=== PATIENT | female | born 1955 | race Hispanic/Latino ===

== ENCOUNTER 2018-07-12 19:47 | Emergency (ER) | payer OTHER ==
--- OUTSIDE RECORDS SUMMARY | 2018-07-12 19:49 | XMS REPORT ---
:1955 Author Organization eClinicalWorks Care Team Providers Name Role Phone Will Ortiz Provider Role Unavailable Allergies, Adverse Reactions, Alerts Substance Reaction Event Type N.K.D.A. 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 Assessment Encounter for screening for other Z11.59 Active viral diseases Assessment Adult BMI 25.0-25.9 kg/sq m Z68.25 Active Assessment Screening mammogram, encounter for Z12.31 Active Assessment Screening for colon cancer Z12.11 Active Medications Medication Code Code Instructions Start End Date Status Dosage System Date Paxil [facility] 76124856834 40 MG Orally Active 1 tablet in Once a day the morning Naproxen ND 36971980767 500 MG Orally Active 1 tablet Twice a day Vimovo [facility] 07339912314 500-20 MG Orally May 23, July 22, Active 1 tablet Twice a day 2018 2018 before meals Results No Known Results Immunizations Vaccine Administration Date Prevnar 13 -Pneumonia Vaccine Jun 13, 2018 Summary Purpose eClinicalWorks Submission
--- OUTSIDE RECORDS SUMMARY | 2018-07-12 19:49 | XMS REPORT ---
:1955 Author Organization eClinicalWorks Care Team Providers Name Role Phone Angel Will Provider Role Unavailable Allergies No Known Allergies Problems Problem Type Condition Code Onset Dates Condition Status Assessment Acute right ankle pain M25.571 Active Medications Medication Code System Code Instructions Start End Date Status Dosage Date Naproxen ND 66050975911 500 MG Orally Active 1 tablet Twice a day Vimovo ND 01403456598 500-20 MG Orally May 23, July 22, Active 1 tablet Twice a day 2018 2018 before meals Results Name Result Date Reference Range Unit Abnormality Flag Ankle Right 3 View Foot Right 3 View Summary Purpose eClinicalWorks Submission
--- OUTSIDE RECORDS SUMMARY | 2018-07-12 19:49 | XMS REPORT ---
:1955 Author Organization eClinicalWorks Care Team Providers Name Role Phone Will Ortiz Provider Role Unavailable Allergies No Known Allergies Problems Problem Type Condition Code Onset Dates Condition Status Assessment Current moderate episode of major F32.1 Active depressive disorder without prior episode Problem Current moderate episode of major F32.1 Active depressive disorder without prior episode Medications Medication Code System Code Instructions Start End Date Status Dosage Date Paxil [facility] 08730578455 40 MG Orally Active 1 tablet in Once a day the morning Results No Known Results Summary Purpose eClinicalWorks Submission
[2018-07-12] MEDS ORDERED: COLCHICINE 0.6 MG TAB ONE (22:47)
[2018-07-12] MEDS ORDERED: KETOROLAC 30 MG/ML INJ ONE (22:48)
--- NOTE | 2018-07-12 23:26 | EDPHYS ---
Physician Documentation [facility] Name: Josie Duarte Age: 63 yrs Sex: Female : 1955 Arrival Date: 07/12/2018 Time: 19:48 Bed 13 Private MD: Will Ortiz ED Physician Dat Smith HPI: 07/12 23:33 This 63 yrs old Female presents to ER via Wheelchair with complaints of Leg snw Pain - ankle, Can't walk. 23:33 The patient presents with decreased range of motion, an injury, pain, swelling, snw tenderness. Historical: - Allergies: 20:19 No Known Allergies; dm5 - Home Meds: 20:19 Paxil 40 mg Oral tab 1 tab once daily [Active]; Centrum oral oral daily [Active]; dm5 Vitamin D Oral [Active]; Vitamin B-6 Oral daily [Active]; - PMHx: 20:19 Depression; dm5 - PSHx: 20:19 None; dm5 ROS: 23:32 Constitutional: Negative for fever, chills, and weight loss, Eyes: Negative for injury, snw pain, redness, and discharge, ENT: Negative for injury, pain, and discharge, Neck: Negative for injury, pain, and swelling, Cardiovascular: Negative for chest pain, palpitations, and edema, Respiratory: Negative for shortness of breath, cough, wheezing, and pleuritic chest pain, Abdomen/GI: Negative for abdominal pain, nausea, vomiting, diarrhea, and constipation, Back: Negative for injury and pain, : Negative for injury, bleeding, discharge, and swelling, Skin: Negative for injury, rash, and discoloration, Neuro: Negative for headache, weakness, numbness, tingling, and seizure, Psych: Negative for depression, anxiety, suicide ideation, homicidal ideation, and hallucinations. 23:32 MS/extremity: Positive for injury or acute deformity, decreased range of motion, pain, swelling, tenderness, of the right ankle. Exam: 23:31 Constitutional: This is a well developed, well nourished patient who is awake, alert, snw and in no acute distress. Head/Face: Normocephalic, atraumatic. Eyes: Pupils equal round and reactive to light, extra-ocular motions intact. Lids and lashes normal. Conjunctiva and sclera are non-icteric and not injected. Cornea within normal limits. Periorbital areas with no swelling, redness, or edema. ENT: Nares patent. No nasal discharge, no septal abnormalities noted. Tympanic membranes are normal and external auditory canals are clear. Oropharynx with no redness, swelling, or masses, exudates, or evidence of obstruction, uvula midline. Mucous membranes moist. Neck: Trachea midline, no thyromegaly or masses palpated, and no cervical lymphadenopathy. Supple, full range of motion without nuchal rigidity, or vertebral point tenderness. No Meningismus. Chest/axilla: Normal chest wall appearance and motion. Nontender with no deformity. No lesions are appreciated. Cardiovascular: Regular rate and rhythm with a normal S1 and S2. No gallops, murmurs, or rubs. Normal PMI, no JVD. No pulse deficits. Respiratory: Lungs have equal breath sounds bilaterally, clear to auscultation and percussion. No rales, rhonchi or wheezes noted. No increased work of breathing, no retractions or nasal flaring. Abdomen/GI: Soft, non-tender, with normal bowel sounds. No distension or tympany. No guarding or rebound. No evidence of tenderness throughout. Back: No spinal tenderness. No costovertebral tenderness. Full range of motion. Skin: Warm, dry with normal turgor. Normal color with no rashes, no lesions, and no evidence of cellulitis. Neuro: Awake and alert, GCS 15, oriented to person, place, time, and situation. Cranial nerves II-XII grossly intact. Motor strength 5/5 in all extremities. Sensory grossly intact. Cerebellar exam normal. Normal gait. Psych: Awake, alert, with orientation to person, place and time. Behavior, mood, and affect are within normal limits. 23:31 Musculoskeletal/extremity: Extremities: grossly normal except: decreased ROM, swelling, tenderness, ROM: limited active range of motion due to pain, Circulation is intact in all extremities. Sensation intact. Compartment Syndrome exam of affected extremity: is normal. Vital Signs: 20:19 BP 135 / 93; Pulse 85; Resp 18; Temp 99.2; Pulse Ox 98% on R/A; Weight 64.41 kg; Height dm5 5 ft. 2 in. (157.48 cm); Pain 10/10; 21:45 BP 156 / 92; Pulse 85; Resp 18; Pulse Ox 98% on R/A; jb4 22:15 BP 159 / 86; Pulse 65; Resp 18; Pulse Ox 100% on R/A; jb4 23:15 BP 148 / 92; Pulse 64; Resp 16; Pulse Ox 99% on R/A; jb4 20:19 Body Mass Index 25.97 (64.41 kg, 157.48 cm) dm5 MDM: 22:25 Patient medically screened. snw 23:32 Data reviewed: vital signs, nurses notes. Data interpreted: Pulse oximetry: on room air snw is 100 %. Interpretation: normal. Counseling: I had a detailed discussion with the patient and/or guardian regarding: the historical points, exam findings, and any diagnostic results supporting the discharge/admit diagnosis, radiology results, the need for outpatient follow up, to return to the emergency department if symptoms worsen or persist or if there are any questions or concerns that arise at home. Special discussion: I have referred the patient to see his PCP for further evaluation of high blood pressure. Based on the history and exam findings, there is no indication for further emergent testing or inpatient evaluation. I discussed with the patient/guardian the need to see the orthopedic surgeon for further evaluation of the symptoms. I discussed with the patient/guardian the need to see the primary care provider for further evaluation of the symptoms. 07/12 20:20 Order name: Ankle Right 3 View XRAY 5 07/12 22:28 Order name: Aircast Ankle Splint: boot; Complete Time: 23:22 snw Administered Medications: 22:40 Drug: TORadol 60 mg Route: IM; Site: right gluteus; jb4 23:15 Follow up: Response: No adverse reaction; Pain is decreased jb4 22:40 Drug: Colcrys 1.2 mg Route: PO; jb4 23:15 Follow up: Response: No adverse reaction jb4 Disposition: 07/13 06:27 Co-signature as Attending Physician, Dat Smith MD Available for consultation at ps1 all times . Disposition: 07/12/18 23:25 Discharged to Home. Impression: Pain in ankle and joints of foot. - Condition is Stable. - Discharge Instructions: Ankle Sprain, Cast or Splint Care, Adult, Hypertension, RICE for Routine Care of Injuries, Ankle Pain, Cryotherapy. - Prescriptions for Diclofenac Sodium 75 mg Oral Tablet Sustained Release - take 1 tablet by ORAL route 2 times per day; 30 tablet. - Medication Reconciliation Form, Thank You Letter, Antibiotic Education, Prescription Opioid Use form. - Follow up: Will Ortiz DO; When: 2 - 3 days; Reason: Recheck today's complaints, Continuance of care, Re-evaluation by your physician. Follow up: Emergency Department; When: As needed; Reason: Worsening of condition. Signatures: Dispatcher [employer] Laura August, RN RN dm5 Chrissy Gavin, SALES FLOOR TEAM MEMBER-C SALES FLOOR TEAM MEMBER-Csnw Jan Morris RN RN jb4 Dat Smith MD MD ps1 Corrections: (The following items were deleted from the chart) 07/12 23:52 23:25 07/12/2018 23:25 Discharged to Home. Impression: Pain in ankle and joints of jb4 foot. Condition is Stable. Forms are Medication Reconciliation Form, Thank You Letter, Antibiotic Education, Prescription Opioid Use. Follow up: Will Ortiz; When: 2 - 3 days; Reason: Recheck today's complaints, Continuance of care, Re-evaluation by your physician. Follow up: Emergency Department; When: As needed; Reason: Worsening of condition. snw
--- NOTE | 2018-07-12 23:26 | ER ---
Nurse's Notes [facility] Name: Josie Duarte Age: 63 yrs Sex: Female : 1955 Arrival Date: 07/12/2018 Time: 19:48 Bed 13 Private MD: Will Ortiz Diagnosis: Pain in ankle and joints of foot Presentation: 07/12 20:16 Presenting complaint: Patient states: pain started months ago, didn't' want to come in [address] Ortiz and sent to get x-ray, diagnosed with osteodegenerative arthritis. Due for more test July 30. Presenting complaint: Patient states: has gotten worse over the last 2 days. Transition of care: patient was not received from another setting of care. Onset of symptoms was July 09, 2018. Risk Assessment: Do you want to hurt yourself or someone else? Patient reports no desire to harm self or others. Initial Sepsis Screen: Does the patient meet any 2 criteria? No. Patient's initial sepsis screen is negative. Does the patient have a suspected source of infection? No. Patient's initial sepsis screen is negative. Care prior to arrival: None. 20:16 Method Of Arrival: Wheelchair dm5 20:16 Acuity: CARMEN 4 dm5 Historical: - Allergies: 20:19 No Known Allergies; dm5 - Home Meds: 20:19 Paxil 40 mg Oral tab 1 tab once daily [Active]; Centrum oral oral daily [Active]; dm5 Vitamin D Oral [Active]; Vitamin B-6 Oral daily [Active]; - PMHx: 20:19 Depression; dm5 - PSHx: 20:19 None; dm5 Screenin:40 Abuse screen: Denies threats or abuse. Nutritional screening: No deficits noted. jb4 Tuberculosis screening: No symptoms or risk factors identified. Fall Risk None identified. Assessment: 21:40 General: Appears in no apparent distress. uncomfortable, Behavior is calm, cooperative, jb4 appropriate for age. Pain: Complains of pain in right ankle Pain radiates to right foot Pain currently is 10 out of 10 on a pain scale. Neuro: Level of Consciousness is awake, alert, obeys commands, Oriented to person, place, time, situation. Cardiovascular: Patient's skin is warm and dry. Respiratory: Airway is patent Respiratory effort is even, unlabored, Respiratory pattern is regular, symmetrical. GI: No signs and/or symptoms were reported involving the gastrointestinal system. : No signs and/or symptoms were reported regarding the genitourinary system. EENT: No signs and/or symptoms were reported regarding the EENT system. Derm: Skin is intact, Skin is pink, warm \T\ dry. Musculoskeletal: Circulation, motion, and sensation intact. Range of motion: intact in right ankle. 22:31 Reassessment: Patient appears in no apparent distress at this time. No changes from jb4 previously documented assessment. Patient and/or family updated on plan of care and expected duration. Pain level reassessed. Patient is alert, oriented x 3, equal unlabored respirations, skin warm/dry/pink. Vital Signs: 20:19 BP 135 / 93; Pulse 85; Resp 18; Temp 99.2; Pulse Ox 98% on R/A; Weight 64.41 kg; Height dm5 5 ft. 2 in. (157.48 cm); Pain 10/10; 21:45 BP 156 / 92; Pulse 85; Resp 18; Pulse Ox 98% on R/A; jb4 22:15 BP 159 / 86; Pulse 65; Resp 18; Pulse Ox 100% on R/A; jb4 23:15 BP 148 / 92; Pulse 64; Resp 16; Pulse Ox 99% on R/A; jb4 20:19 Body Mass Index 25.97 (64.41 kg, 157.48 cm) dm5 ED Course: 19:48 Patient arrived in ED. am2 19:49 Will Ortiz DO is Private Physician. am2 20:18 Triage completed. dm5 20:19 Arm band placed on right wrist. Patient placed in waiting room. dm5 20:25 Chrissy Gavin [facility]NP-C [facility]. snw 20:25 Dat Smith MD is Attending Physician. snw 21:28 Jan Morris, FOX is Primary Nurse. jb4 21:35 Ankle Right 3 View XRAY In Process Unspecified. EDMS 21:40 Patient has correct armband on for positive identification. Bed in low position. Call jb4 light in reach. Side rails up X 1. Pulse ox on. NIBP on. 23:24 Will Ortiz DO is Referral Physician. snw 23:45 No provider procedures requiring assistance completed. Patient did not have IV access jb4 during this emergency room visit. Administered Medications: 22:40 Drug: TORadol 60 mg Route: IM; Site: right gluteus; jb4 23:15 Follow up: Response: No adverse reaction; Pain is decreased jb4 22:40 Drug: Colcrys 1.2 mg Route: PO; jb4 23:15 Follow up: Response: No adverse reaction jb4 Outcome: 23:25 Discharge ordered by MD. snw 23:45 Discharged to home ambulatory. jb4 23:45 Condition: stable 23:45 Discharge instructions given to patient, Instructed on discharge instructions, follow up and referral plans. medication usage, Demonstrated understanding of instructions, follow-up care, medications, Prescriptions given X 1. 23:52 Patient left the ED. jb4 Signatures: Dispatcher [employer] Laura August, RN RN dm5 Chrissy Gavin, CHOCOLATE REFINING ROLLER-C CHOCOLATE REFINING ROLLER-Csnw Jan Morris RN RN jb4 Agnes Man
[2018-07-12 23:56] VITALS: TEMP 99.2
[2018-07-12 23:59] VITALS: BP 159/86; O2SAT 100
--- NOTE | 2018-07-13 08:35 | RAD REPORT ---
EXAM DESCRIPTION: RAD - Ankle Right 3 View - 07/12/2018 9:34 pm CLINICAL HISTORY: Right ankle pain FINDINGS: No fracture or dislocation is seen. Mild osteoarthritis is present. An ankle joint effusion is suspected. A. A spur extends off the poste rior calcaneus. Soft tissue swelling is present. The bones appear osteoporotic
== END 2018-07-12 23:52 | disposition home or self-care (01) ==
LOC: ER 19:47
DX: M25.571 Pain in right ankle and joints of right foot (principal)
CPT/HCPCS: 96372; 99284

== ENCOUNTER 2020-11-12 08:37 | Emergency (ER) | payer OTHER ==
--- OUTSIDE RECORDS SUMMARY | 2020-11-12 08:41 | XMS REPORT | Continuity of Care Document ---
:1955 Author Organization [facility] t Address [address] [place] [address] Care Team Providers Name Role Phone Unavailable Unavailable Unavailable Problems This patient has no known problems. Allergies, Adverse Reactions, Alerts This patient has no known allergies or adverse reactions. Medications Ordered Filled Start Stop Current Ordering Indication Dosage Frequency Signature Comments Components Source Medication Medication Date Date Medication? Clinician (SIG) Name Name Alprazolam Alprazolam Yes Will [address] [facility]15 [facility] BusPIRone BusPIRone 0 Yes Will [address] [facility] HCl HCl 3-10 [facility] Neomycin-Po Neomycin-Po 2018-04 Yes Will [address] [facility] lymyxin-HC lymyxin-HC 2-24 Ortiz into [facility] - 00:[facility]: affected [facility] Paroxetine Paroxetine Yes Will [address] [facility] HCl HCl [facility] Naproxen Naproxen Yes Will [address] [facility] Amlodipine Amlodipine Yes Will [address] [facility] Besylate Besylate [facility] Paxil Paxil Yes Will [address] [facility] Alendronate Alendronate Yes Will [address] [facility] Sodium Sodium [facility] Immunizations Ordered Filled Immunization Date Status Comments [facility] Immunization Name Name Pneumovax (PPSV23) Pneumovax (PPSV23) 2020-01-[address] [facility]00 [facility] Shingrix Shingrix 2020-01-[address] [facility]:00 [facility] FluAD FluAD 2019-02-[address] [facility]00 [facility] Prevnar 13 Prevnar 13 2018-06-[address] [facility] - -Pneumonia Vaccine -Pneumonia Vaccine 00:00:00 [facility] Procedures This patient has no known procedures. Encounters Start End Encounter Admission Attending Care Care Encounter Source Date/Time Date/Time Type Type Clinicians Facility Department ID 2020-11-03 2020-11-[address] [id number] 2020-10-05 2020-10-[facility] [id number] 2020-10-04 2020-10-[facility] [id number] 2020-08-22 2020-08-[facility] [id number] [facility] 2020-07-28 2020-07-28 [facility] [id number] 2020-07-28 2020-07-[facility] [id number] [facility] 2020-07-21 2020[facility]07-[facility] [id number] [facility] 2020-02-04 2020-02-04 [facility] [id number] 2020-01-07 2020-01-07 [facility] [id number] [facility] 08:[facility]:00 08:00:00 t [place] [employer] s - Document [facility] l Medicine Outpati ent Clinics 2019-09-11 2019-09-11 [facility] [id number] 09[facility]15:00 09:15:00 t [place] [employer] - Document [employer] [facility] Medicine Outpati ent Clinics 2019-08-19 2019-08-19 [facility] [id number] 08:50:00 08:50:00 t [place] [employer] [facility] Medicine Outpati ent Clinics 2019-07-16 2019-07-16 [facility] [id number] 08:08:00 08:08:00 t [place] [employer] [facility] Medicine Outpati ent Clinics 2019-07-06 2019-07-06 [facility] [id number] 16:27:00 16:27:00 t [place] [employer] [facility] Medicine Outpati ent Clinics 2019-07-06 2019-07-06 [facility] [id number] [facility] 08:01:00 08:01:00 t [employer] [facility] Medicine Outpati ent Clinics 2019-07-03 2019-07-03 [facility] [id number] 10:00:00 10:00:00 t [place] [employer] [facility] Medicine Outpati ent Clinics 2019-07-03 2019-07-03 [facility] [id number] 09:45:00 09:45:00 t [place] [employer] [facility] Medicine Outpati ent Clinics 2019-05-04 2019-05-04 [facility] [id number] 09:15:00 09:15:00 t [place] [employer] [facility] Medicine Outpati ent Clinics 2019-04-21 2019-04-21 [facility] [id number] 08:45:00 08:45:[address] [facility] s - Drive [facility] Medicine l Medicine Outpati ent Clinics 2019-03-04 2019-03-04 [facility] [id number] 13:26:00 13:26:[address] Luke [facility] - Drive [facility] Medicine l Medicine Outpati ent Clinics 2019-03-03 2019-03-03 [facility] [id number] 10[facility]30:00 10:30:[address] Luke s - Drive [facility] Medicine l Medicine Outpati ent Clinics 2019-02-03 2019-02-03 [facility] [id number] 13:30:00 13:30:00 t [place] [employer] Luke [facility] - Drive [facility] Medicine l Medicine Outpati ent Clinics 2019-02-03 2019-02-03 [facility] [id number] 09:30:00 09:30:[address] Luke s - Drive [facility] Medicine Medicine Outpati ent Clinics 2018-08-27 2018-08-27 [facility] [id number] 11:43:00 11:43:00 t [place] Document [employer] Luke s - Drive [facility] Medicine l Medicine Outpati ent Clinics 2018-08-19 2018-08-19 [facility] [id number] 13:47:00 13:47:00 t [place] Document [employer] Luke s - Drive [facility] Medicine l Medicine Outpati ent Clinics 2018-07-17 2018-07-17 [facility] [id number] 08:00:00 08:00:[address] Luke s - Drive [facility] Medicine l Medicine Outpati ent Clinics 2018-06-13 2018-06-13 [facility] [id number] 15:17:00 15:17:[address] Luke s - Drive [facility] Medicine l Medicine Outpati ent Clinics 2018-06-13 2018-06-13 [facility] [id number] 10:45:00 10:45:[address] Luke s - Drive [facility] Medicine l Medicine Outpati ent Clinics 2018-05-23 2018-05-23 Outpatient Malathi Hdez [id number] [facility] 09:15:00 09:15:00 Fonemesh [facility] Medicine [facility] Results This patient has no known results.
--- NOTE | 2020-11-12 09:21 | RAD REPORT ---
EXAM DESCRIPTION: RAD - Wrist Right 3 View - 11/12/2020 9:07 am CLINICAL HISTORY: PAIN COMPARISON: No comparisons FINDINGS: No wrist fracture identified. No malalignment. No radiopaque foreign bodies. No focal dege nerative changes. IMPRESSION: No right wrist fracture or malalignment.
--- NOTE | 2020-11-12 09:27 | ER ---
Nurse's Notes [facility] Name: Josie Duarte Age: 65 yrs Sex: Female : 1955 Arrival Date: 11/12/2020 Time: 08:39 Bed 23 Private MD: Will Ortiz Diagnosis: Sprain of unspecified part of right wrist and hand Presentation: 11/12 08:46 Chief complaint: Patient states: R hand and wrist pain s/p fall on wet surface 2 days ll1 ago. Coronavirus screen: Client denies travel out of the [place] in the last 14 days. At this time, the client does not indicate any symptoms associated with coronavirus-19. Ebola Screen: Patient denies travel to an Ebola-affected area in the 21 days before illness onset. Initial Sepsis Screen: Does the patient meet any 2 criteria? No. Patient's initial sepsis screen is negative. Does the patient have a suspected source of infection? Yes: Bone or joint infection. Risk Assessment: Do you want to hurt yourself or someone else? Patient reports no desire to harm self or others. Onset of symptoms was November 10, 2020. 08:46 Method Of Arrival: Ambulatory ll1 08:46 Acuity: CARMEN 4 ll1 09:10 Care prior to arrival: None. Triage Assessment: 08:49 General: Appears uncomfortable, Behavior is calm, cooperative, appropriate for age. ll1 Pain: Complains of pain in R wrist/hand Quality of pain is described as aching. Neuro: No deficits noted. Cardiovascular: No deficits noted. Respiratory: No deficits noted. Musculoskeletal: Circulation, motion, and sensation intact. Capillary refill < 3 seconds, Swelling present in R hand/wrist Tenderness present in R hand/wrist Reports pain in R hand. Injury Description: Bruise. Historical: - Allergies: 08:46 No Known Allergies; ll1 - PMHx: 08:46 Depression; ll1 - PSHx: 08:46 None; ll1 - Immunization history:: Client reports receiving the 2nd dose of the Covid vaccine, Flu vaccine is up to date. - Social history:: Smoking status: Patient denies any tobacco usage or history of. - Family history:: not pertinent. - Hospitalizations: : No recent hospitalization is reported. Screenin:11 Abuse screen: Denies threats or abuse. Denies injuries from another. Nutritional ss screening: No deficits noted. Tuberculosis screening: Never had TB. Fall Risk Fall in past 12 months (25 points). No secondary diagnosis (0 pts). No IV (0 pts). Ambulatory Aid- None/Bed Rest/Nurse Assist (0 pts). Gait- Normal/Bed Rest/Wheelchair (0 pts) Mental Status- Oriented to own ability (0 pts). Assessment: 09:11 General: Appears in no apparent distress. comfortable, Behavior is calm, cooperative, ss Denies fever, feeling ill, fatigue, chills. Pain: Complains of pain in right wrist Pain currently is 10 out of 10 on a pain scale. Quality of pain is described as aching, tender, Pain began 1 day ago. Is continuous. Neuro: Level of Consciousness is awake, alert, obeys commands, Oriented to person, place, time, situation. Cardiovascular: Pulses are palpable in right radial artery and left radial artery. Respiratory: Airway is patent Respiratory effort is even, unlabored, Respiratory pattern is regular, symmetrical. GI: No signs and/or symptoms were reported involving the gastrointestinal system. EENT: Oral mucosa is moist. Derm: Skin is intact, is healthy with good turgor, Skin is dry, Skin is pink, warm \T\ dry. normal. Musculoskeletal: Swelling present in right wrist. 09:35 Reassessment: No changes from previously documented assessment. Patient and/or family ss updated on plan of care and expected duration. Pain level reassessed. Patient is alert, oriented x 3, equal unlabored respirations, skin warm/dry/pink. Vital Signs: 08:46 BP 173 / 98; Pulse 63; Resp 16; Temp 98.0; Pulse Ox 97% ; Weight 65.77 kg; Height 5 ft. ll1 2 in. (157.48 cm); Pain 10/10; 09:35 BP 161 / 101; Pulse 56; Resp 16; Pulse Ox 97% ; ss 08:46 Body Mass Index 26.52 (65.77 kg, 157.48 cm) ll1 ED Course: 08:39 Patient arrived in ED. mr 08:40 Will Ortiz, DO is Private Physician. mr 08:45 Arm band placed on. ll1 08:48 Triage completed. 1 09:04 Evan Azar MD is Attending Physician. rn 09:07 Wrist Right 3 View XRAY In Process Unspecified. EDMS 09:10 Sandy Moss, RN is Primary Nurse. ss 09:11 Patient has correct armband on for positive identification. Bed in low position. Call ss light in reach. 09:35 No provider procedures requiring assistance completed. Patient did not have IV access ss during this emergency room visit. Administered Medications: No medications were administered Outcome: :26 Discharge ordered by . rn 09:35 Discharged to home ambulatory. ss 09:35 Condition: stable 09:35 Discharge instructions given to patient, Instructed on discharge instructions, follow up and referral plans. Demonstrated understanding of instructions, follow-up care. 09:35 Patient left the ED. ss Signatures: Dispatcher [employer] [facility] BorregoCarly Roman, MD MD rn Smirch, Shelby, RN RN Marsha Gonsalez RN RN ll1
--- NOTE | 2020-11-12 09:27 | EDPHYS ---
Physician Documentation [facility] Name: Josie Duarte Age: 65 yrs Sex: Female : 1955 Arrival Date: 11/12/2020 Time: 08:39 Bed 23 Private MD: Will Ortiz ED Physician Evan Azar HPI: 11/12 09:21 This 65 yrs old Female presents to ER via Ambulatory with complaints of Fall rn Injury, Wrist Injury. 09:21 Details of fall: The patient fell from an upright position, while walking. Onset: The rn symptoms/episode began/occurred 2 day(s) ago. Associated injuries: The patient sustained right wrist. Severity of symptoms: At their worst the symptoms were moderate, in the emergency department the symptoms are unchanged. The patient has not experienced similar symptoms in the past. The patient has not recently seen a physician. Reports fall outside, slipped, landed on buttocks and thinks caught her right wrist on ground. Didn't hurt initially, now having increased pain since last night. No other pain or injury. Reports pain when wiping and buttoning pants. . Historical: - Allergies: 08:46 No Known Allergies; ll1 - PMHx: 08:46 Depression; ll1 - PSHx: 08:46 None; ll1 - Immunization history:: Client reports receiving the 2nd dose of the Covid vaccine, Flu vaccine is up to date. - Social history:: Smoking status: Patient denies any tobacco usage or history of. - Family history:: not pertinent. - Hospitalizations: : No recent hospitalization is reported. ROS: 09:21 Constitutional: Negative for fever, chills, and weight loss, Eyes: Negative for injury, rn pain, redness, and discharge, Neck: Negative for injury, pain, and swelling, Cardiovascular: Negative for chest pain, palpitations, and edema, Respiratory: Negative for shortness of breath, cough, wheezing, and pleuritic chest pain, Abdomen/GI: Negative for abdominal pain, nausea, vomiting, diarrhea, and constipation, Back: Negative for injury and pain, MS/Extremity: + right wrist injury and pain Skin: Negative for injury, rash, and discoloration, Neuro: Negative for headache, weakness, numbness, tingling, and seizure. Exam: 09:21 Constitutional: This is a well developed, well nourished patient who is awake, alert, rn and in no acute distress. Head/Face: Normocephalic, atraumatic. Cardiovascular: Regular rate and rhythm. No pulse deficits. MS/ Extremity: Pulses equal, no cyanosis. Neurovascular intact. + mild tenderness mid right wrist with swelling that extends to right hand, no focal tenderness in hand. Vital Signs: 08:46 BP 173 / 98; Pulse 63; Resp 16; Temp 98.0; Pulse Ox 97% ; Weight 65.77 kg; Height 5 ft. ll1 2 in. (157.48 cm); Pain 10/10; 09:35 BP 161 / 101; Pulse 56; Resp 16; Pulse Ox 97% ; ss 08:46 Body Mass Index 26.52 (65.77 kg, 157.48 cm) ll1 MDM: 09:04 Patient medically screened. rn 09:24 Differential diagnosis: contusion, fracture, sprain, strain. Data reviewed: vital rn signs, nurses notes, lab test result(s). 09:25 Test interpretation: by ED physician or midlevel provider: plain radiologic studies, rn Xray right wrist negative for acute fracture/dislocation. Counseling: I had a detailed discussion with the patient and/or guardian regarding: the historical points, exam findings, and any diagnostic results supporting the discharge/admit diagnosis, radiology results, the need for outpatient follow up, to return to the emergency department if symptoms worsen or persist or if there are any questions or concerns that arise at home. Special discussion: I discussed with the patient/guardian in detail that at this point there is no indication for admission to the hospital. It is understood, however, that if the symptoms persist or worsen the patient needs to return immediately for re-evaluation. 11/12 08:52 Order name: Wrist Right 3 View XRAY; Complete Time: 09:24 pm1 Administered Medications: No medications were administered Disposition Summary: 11/12/20 09:26 Discharge Ordered Location: Home rn Problem: new rn Symptoms: are unchanged rn Condition: Stable rn Diagnosis - Sprain of unspecified part of right wrist and hand rn Followup: rn - With: Private Physician - When: As needed - Reason: Recheck today's complaints, Re-evaluation by your physician Discharge Instructions: - Discharge Summary Sheet rn - Wrist Pain, Adult rn - Wrist Sprain, Adult rn Forms: - Medication Reconciliation Form rn - Thank You Letter rn - Antibiotic rn military - Prescription Opioid Use rn Signatures: Dispatcher [employer] Evan Guerra MD MD rn Lewis, Lynsay, RN RN ll1
[2020-11-12 09:40] VITALS: TEMP 98; O2SAT 97
[2020-11-12 09:41] VITALS: BP 161/101
== END 2020-11-12 09:35 | disposition home or self-care (01) ==
LOC: ER 08:37
DX: S63.91XA Sprain of unspecified part of right wrist and hand, initial encounter (principal); W01.0XXA Fall on same level from slipping, tripping and stumbling without subsequent striking against object, initial encounter
CPT/HCPCS: 99283

== ENCOUNTER 2022-02-08 10:04 | Emergency (ER) | payer OTHER ==
--- OUTSIDE RECORDS SUMMARY | 2022-02-08 10:11 | XMS REPORT | Continuity of Care Document ---
:1955 Author Organization [facility] t Address [address] [place] [address] Dr. Gutierrez [address] [place] [id number] Care Team Providers Name Role Phone Will Ortiz Attending Clinician Unavailable [facility] Attending Clinician Unavailable [facility] Admitting Clinician Unavailable Payers Payer Name Policy Type Policy Number Effective Date Expiration Date Fe [place] [employer] MEDICARE 53 [id number] 2020 [facility] 00:00[facility]00 [facility] [id number] 1959 00:00:00 Problems Condition Condition Condition Status Onset Resolution Last Treating Co mments Source Name Details Category Date Date Treatment Clinician Date [id number] Mixed Problem Common hyperlipid [facility] emia [facility] [id number] Generalize Problem Com mon d anxiety [facility] disorder [facility] [id number] Prolonged Problem Com mon QT [facility] interval [facility] [id number] Sinus Problem Common tachycardi [facility] a [facility] Localized, 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 - [facility] the ankle unspecifie Rafia es and/or d [facility] itis type [id number] HTN, goal Problem Comm on below [facility] 150/90 [facility] [id number] 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[facility] prior episode [id number] Carotid Problem Commo n artery [facility] disease, - [facility] unspecifie d [facility] laterality [facility] [place] unspecifie d type [id number] Panic Problem Common attack [facility] [id number] Flu Problem Common vaccine [facility] need [facility] [id number] 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 Social History Social Habit Start Date Stop Date Quantity Comments Source History of Tobacco Use Co mmon [facility] Sex Assigned At Com mon [facility] Smoking Status Start Date Stop Date Source Never Smoker [facility] Medications Ordered Filled Start Stop Current Ordering Indication Dosage Frequency Signature Comments Components Source Medication Medication Date Date Medication? Clinician (SIG) Name Name ALPRAZolam ALPRAZolam No 1{table ALPRAZolam 0.5 MG 0.5 MG 8-30 t} 0.5 MG 00:00: 00 ALPRAZolam ALPRAZolam No 1{table ALPRAZolam 0.5 MG 0.5 MG 8-30 t} 0.5 MG 00:00: 00 ALPRAZolam ALPRAZolam No 1{table ALPRAZolam 0.5 MG 0.5 MG 8-30 t} 0.5 MG 00:00: 00 ALPRAZolam ALPRAZolam No 1{table ALPRAZolam 0.5 MG 0.5 MG 8-30 t} 0.5 MG 00:00: 00 PARoxetine PARoxetine No QD PARoxetine HCl 20 MG HCl 20 MG 2-24 HCl 20 MG 00:00: 00 PARoxetine PARoxetine No QD PARoxetine HCl 20 MG HCl 20 MG 2-24 HCl 20 MG 00:00: 00 amLODIPine amLODIPine No 1{table QD amLODIPine Besylate Besylate 1-13 t} Besylate 2.5 MG 2.5 MG 00:00: 2.5 MG 00 amLODIPine amLODIPine No 1{table QD amLODIPine Besylate Besylate 1-13 t} Besylate 2.5 MG 2.5 MG 00:00: 2.5 MG 00 Alprazolam Alprazolam 2020-0 Yes Will 1 tablet Common 5-15 [facility] 00:00: - [facility] 00 [facility] BusPIRone BusPIRone 2020-0 Yes Will 1 tablet Common HCl HCl 3-10 [facility] 00:00: - [facility] 00 [facility] busPIRone busPIRone 2020-0 No 1{table TID busPIRone HCl 5 MG HCl 5 MG 3-10 t} HCl 5 MG 00:00: 00 busPIRone busPIRone 2020-0 No 1{table TID busPIRone HCl 5 MG HCl 5 MG 3-10 t} HCl 5 MG 00:00: 00 busPIRone busPIRone 2019-0 No 1{table TID busPIRone HCl 5 MG HCl 5 MG 3-10 t} HCl 5 MG 00:00: 00 busPIRone busPIRone 2019-0 No 1{table TID busPIRone HCl 5 MG HCl 5 MG 3-10 t} HCl 5 MG 00:00: 00 busPIRone busPIRone 2020-0 No 1{table TID busPIRone HCl 5 MG HCl 5 MG 3-10 t} HCl 5 MG 00:00: 00 busPIRone busPIRone 2020-0 No 1{table TID busPIRone HCl 5 MG HCl 5 MG 3-10 t} HCl 5 MG 00:00: 00 busPIRone busPIRone 2020-0 No 1{table TID busPIRone HCl 5 MG HCl 5 MG 3-10 t} HCl 5 MG 00:00: 00 busPIRone busPIRone 2020-0 No 1{table TID busPIRone HCl 5 MG HCl 5 MG 3-10 t} HCl 5 MG 00:00: 00 busPIRone busPIRone 2020-0 No 1{table TID busPIRone HCl 5 MG HCl 5 MG 3-10 t} HCl 5 MG 00:00: 00 busPIRone busPIRone 2020-0 No 1{table TID busPIRone HCl 5 MG HCl 5 MG 3-10 t} HCl 5 MG 00:00: 00 Kenalog Kenalog 2019-0 No 40mg Common (Triamcinol (Triamcinol 1-06 S pirit one) one) 00:00: - [facility] 00 [facility] Kenalog Kenalog 2020-0 No 40mg Common (Triamcinol (Triamcinol 1-06 S pirit one) one) 00:00: - [facility] 00 [facility] Kenalog Kenalog 2020-0 No 40mg Common (Triamcinol (Triamcinol 1-06 S pirit one) one) 00:00: - [facility] 00 [facility] Kenalog Kenalog 2020-0 No 40mg Common (Triamcinol (Triamcinol 1-06 S pirit one) one) 00:00: - [facility] 00 [facility] Kenalog Kenalog 2020-0 No 40mg Common (Triamcinol (Triamcinol 1-06 S pirit one) one) 00:00: - [facility] 00 [facility] Kenalog Kenalog 2020-0 No 40mg Common (Triamcinol (Triamcinol 1-06 S pirit one) one) 00:00: - [facility] 00 [facility] Kenalog Kenalog 2020-0 No 40mg Common (Triamcinol (Triamcinol 1-06 S pirit one) one) 00:00: - [facility] 00 [facility] Kenalog Kenalog 2020-0 No 40mg Common (Triamcinol (Triamcinol 1-06 S pirit one) one) 00:00: - [facility] 00 [facility] Bernardoalog Kenalog 2020-0 No 40mg Common (Triamcinol (Triamcinol 1-06 S pirit one) one) 00:00: - [facility] 00 [facility] Neomycin-Po Neomycin-Po 2018- Yes Will 4 drops Common lymyxin-HC lymyxin-HC 2-24 Ortiz into Sp alirio 00:00: affected - [facility] 00 ear [facility] Neomycin-Po Neomycin-Po 2018- No 4{drops TID Neomycin-P lymyxin-HC lymyxin-HC 2-24 _into_a olymyxin-H 3.5-10583-9 3.5-58750-3 00:00: ffected C 00 _ear} 3.5-94942- 1 Neomycin-Po Neomycin-Po 2018-04 No 4{drops TID Neomycin-P lymyxin-HC lymyxin-HC 2-24 _into_a olymyxin-H 3.5-73452-4 3.5-55520-4 00:00: ffected C 00 _ear} 3.5-36949- 1 Neomycin-Po Neomycin-Po 2018-04 No 4{drops TID Neomycin-P lymyxin-HC lymyxin-HC 2-24 _into_a olymyxin-H 3.5-80737-0 3.5-75739-5 00:00: ffected C 00 _ear} 3.5-30447- 1 Neomycin-Po Neomycin-Po 2018-04 No 4{drops TID Neomycin-P lymyxin-HC lymyxin-HC 2-24 _into_a olymyxin-H 3.5-29366-5 3.5-72958-6 00:00: ffected C 00 _ear} 3.5-51921- 1 Neomycin-Po Neomycin-Po 2018-04 No 4{drops TID Neomycin-P lymyxin-HC lymyxin-HC 2-24 _into_a olymyxin-H 3.5-63749-9 3.5-25016-7 00:00: ffected C 00 _ear} 3.578553- 1 Neomycin-Po Neomycin-Po 2018-04 No 4{drops TID Neomycin-P lymyxin-HC lymyxin-HC 2-24 _into_a olymyxin-H 3.5-04503-0 3.5-02854-6 00:00: ffected C 00 _ear} 3.5-25785- 1 Neomycin-Po Neomycin-Po 2018-04 No 4{drops TID Neomycin-P lymyxin-HC lymyxin-HC 2-24 _into_a olymyxin-H 3.5-48443-8 3.5-40957-7 00:00: ffected C 00 _ear} 3.5-24292- 1 Neomycin-Po Neomycin-Po 2018-04 No 4{drops TID Neomycin-P lymyxin-HC lymyxin-HC 2-24 _into_a olymyxin-H 3.5-68479-3 3.5-87010-2 00:00: ffected C 00 _ear} 3.5-47972- 1 Neomycin-Po Neomycin-Po 2018-04 No 4{drops TID Neomycin-P lymyxin-HC lymyxin-HC 2-24 _into_a olymyxin-H 3.564895-3 3.549902-4 00:00: ffected C 00 _ear} 3.5- 1 Neomycin-Po Neomycin-Po 2018- No 4{drops TID Neomycin-P lymyxin-HC lymyxin-HC 2-24 _into_a olymyxin-H 3.526524-6 3.587989-8 00:00: ffected C 00 _ear} 3[facility]5- [facility] (Triamcinol (Triamcinol 3-21 S pirit one) one) 00:00: - [facility] 00 [facility] Gela Kenalog 2019-0 No 40mg Common (Triamcinol (Triamcinol 3-21 S pirit one) one) 00:00: - [facility] [place]-0 No 40mg [facility] (Triamcinol (Triamcinol 3-21 S pirit one) one) 00:00: - [facility] Gela Kenalog 2019-0 No 40mg Common (Triamcinol (Triamcinol 3-21 S pirit one) one) 00:00: - [facility] Kenalog 2019-0 No 40mg Common (Triamcinol (Triamcinol 3-21 S pirit one) one) 00:00: - [facility] Kenchiki Kenalog 2019-0 No 40mg Common (Triamcinol (Triamcinol 3-21 S pirit one) one) 00:00: - [facility] 00 [facility] Gela Kenalog 2019-0 No 40mg Common (Triamcinol (Triamcinol 3-21 S pirit one) one) 00:00: - [facility] Ken[facility]-0 No 40mg Common (Triamcinol (Triamcinol 3-21 S pirit one) one) 00:00: - [facility] Kenchiki Kenalog 2019-0 No 40mg Common (Triamcinol (Triamcinol 3-21 S pirit one) one) 00:00: - [facility] 00 [facility] Paroxetine Paroxetine Yes Will 1 tablet Common HCl HCl [facility]iz in the [facility] Naproxen Naproxen Yes Will 1 tablet C ommon Ortiz [facility] Amlodipine Amlodipine Yes Will 1 tablet Common Besylate Besylate Ortiz [facility] Paxil Paxil Yes Will 1 tablet Common Ortiz in the [facility] Alendronate Alendronate Yes Will 1 tablet Common Sodium Sodium Ortiz [facility] Alendronate Alendronate No Alendronat Sodium 35 Sodium 35 e Sodium MG MG 35 MG ALPRAZolam ALPRAZolam No 1{table ALPRAZolam 0.5 MG 0.5 MG t} 0.5 MG PARoxetine PARoxetine No 1{table QD PARoxetine HCl 40 MG HCl 40 MG t_in_th HCl 40 MG e_morni ng} B Complex B Complex No B Complex Paxil 40 MG Paxil 40 MG No 1{table QD Paxil 40 t_in_th MG e_morni ng} Naproxen Naproxen No 1{table BID Naproxen 500 MG 500 MG t} 500 MG Paxil 40 MG Paxil 40 MG No Paxil 40 MG Vitamin D3 Vitamin D3 No Vitamin D3 125 MCG 125 MCG 125 MCG (5000 UT) (5000 UT) (5000 UT) Alendronate Alendronate No 1{table Alendronat Sodium 35 Sodium 35 t} e Sodium MG MG 35 MG Alendronate Alendronate No Alendronat Sodium 35 Sodium 35 e Sodium MG MG 35 MG ALPRAZolam ALPRAZolam No 1{table ALPRAZolam 0.5 MG 0.5 MG t} 0.5 MG PARoxetine PARoxetine No 1{table QD PARoxetine HCl 40 MG HCl 40 MG t_in_th HCl 40 MG e_morni ng} B Complex B Complex No B Complex Paxil 40 MG Paxil 40 MG No 1{table QD Paxil 40 t_in_th MG e_morni ng} Naproxen Naproxen No 1{table BID Naproxen 500 MG 500 MG t} 500 MG Paxil 40 MG Paxil 40 MG No Paxil 40 MG Vitamin D3 Vitamin D3 No Vitamin D3 125 MCG 125 MCG 125 MCG (5000 UT) (5000 UT) (5000 UT) Alendronate Alendronate No 1{table Alendronat Sodium 35 Sodium 35 t} e Sodium MG MG 35 MG Alendronate Alendronate No Alendronat Sodium 35 Sodium 35 e Sodium MG MG 35 MG Vitamin D3 Vitamin D3 No Vitamin D3 125 MCG 125 MCG 125 MCG (5000 UT) (5000 UT) (5000 UT) Paxil 40 MG Paxil 40 MG No 1{table QD Paxil 40 t_in_th MG e_morni ng} Paxil 40 MG Paxil 40 MG No Paxil 40 MG Alendronate Alendronate No Alendronat Sodium 35 Sodium 35 e Sodium MG MG 35 MG PARoxetine PARoxetine No 1{table QD PARoxetine HCl 40 MG HCl 40 MG t_in_th HCl 40 MG e_morni ng} B Complex B Complex No B Complex Naproxen Naproxen No 1{table BID Naproxen 500 MG 500 MG t} 500 MG Alendronate Alendronate No 1{table Alendronat Sodium 35 Sodium 35 t} e Sodium MG MG 35 MG ALPRAZolam ALPRAZolam No 1{table ALPRAZolam 0.5 MG 0.5 MG t} 0.5 MG Vitamin D3 Vitamin D3 No Vitamin D3 125 MCG 125 MCG 125 MCG (5000 UT) (5000 UT) (5000 UT) Paxil 40 MG Paxil 40 MG No 1{table QD Paxil 40 t_in_th MG e_morni ng} Paxil 40 MG Paxil 40 MG No Paxil 40 MG Alendronate Alendronate No Alendronat Sodium 35 Sodium 35 e Sodium MG MG 35 MG PARoxetine PARoxetine No 1{table QD PARoxetine HCl 40 MG HCl 40 MG t_in_th HCl 40 MG e_morni ng} B Complex B Complex No B Complex Naproxen Naproxen No 1{table BID Naproxen 500 MG 500 MG t} 500 MG Alendronate Alendronate No 1{table Alendronat Sodium 35 Sodium 35 t} e Sodium MG MG 35 MG ALPRAZolam ALPRAZolam No 1{table ALPRAZolam 0.5 MG 0.5 MG t} 0.5 MG ALPRAZolam ALPRAZolam No 1{table ALPRAZolam 0.5 MG 0.5 MG t} 0.5 MG Alendronate Alendronate No Alendronat Sodium 35 Sodium 35 e Sodium MG MG 35 MG Naproxen Naproxen No 1{table BID Naproxen 500 MG 500 MG t} 500 MG Paxil 40 MG Paxil 40 MG No 1{table QD Paxil 40 t_in_th MG e_morni ng} Paxil 40 MG Paxil 40 MG No Paxil 40 MG B Complex B Complex No B Complex PARoxetine PARoxetine No 1{table QD PARoxetine HCl 40 MG HCl 40 MG t_in_th HCl 40 MG e_morni ng} Alendronate Alendronate No 1{table Alendronat Sodium 35 Sodium 35 t} e Sodium MG MG 35 MG amLODIPine amLODIPine No 1{table QD amLODIPine Besylate Besylate t} Besylate 2.5 MG 2.5 MG 2.5 MG Vitamin D3 Vitamin D3 No Vitamin D3 125 MCG 125 MCG 125 MCG (5000 UT) (5000 UT) (5000 UT) B Complex B Complex No B Complex amLODIPine amLODIPine No amLODIPine Besylate Besylate Besylate 2.5 MG 2.5 MG 2.5 MG Vitamin D3 Vitamin D3 No Vitamin D3 125 MCG 125 MCG 125 MCG (5000 UT) (5000 UT) (5000 UT) amLODIPine amLODIPine No 1{table QD amLODIPine Besylate Besylate t} Besylate 2.5 MG 2.5 MG 2.5 MG Paxil 40 MG Paxil 40 MG No QD Paxil 40 MG PARoxetine PARoxetine No 1{table QD PARoxetine HCl 40 MG HCl 40 MG t_in_th HCl 40 MG e_morni ng} Naproxen Naproxen No 1{table BID Naproxen 500 MG 500 MG t} 500 MG ALPRAZolam ALPRAZolam No 1{table ALPRAZolam 0.5 MG 0.5 MG t} 0.5 MG Alendronate Alendronate No 1{table Alendronat Sodium 35 Sodium 35 t} e Sodium MG MG 35 MG Alendronate Alendronate No Alendronat Sodium 35 Sodium 35 e Sodium MG MG 35 MG Paxil 40 MG Paxil 40 MG No Paxil 40 MG B Complex B Complex No B Complex amLODIPine amLODIPine No amLODIPine Besylate Besylate Besylate 2.5 MG 2.5 MG 2.5 MG Vitamin D3 Vitamin D3 No Vitamin D3 125 MCG 125 MCG 125 MCG (5000 UT) (5000 UT) (5000 UT) amLODIPine amLODIPine No 1{table QD amLODIPine Besylate Besylate t} Besylate 2.5 MG 2.5 MG 2.5 MG Paxil 40 MG Paxil 40 MG No QD Paxil 40 MG PARoxetine PARoxetine No 1{table QD PARoxetine HCl 40 MG HCl 40 MG t_in_th HCl 40 MG e_morni ng} Naproxen Naproxen No 1{table BID Naproxen 500 MG 500 MG t} 500 MG ALPRAZolam ALPRAZolam No 1{table ALPRAZolam 0.5 MG 0.5 MG t} 0.5 MG Alendronate Alendronate No 1{table Alendronat Sodium 35 Sodium 35 t} e Sodium MG MG 35 MG Alendronate Alendronate No Alendronat Sodium 35 Sodium 35 e Sodium MG MG 35 MG Paxil 40 MG Paxil 40 MG No Paxil 40 MG Alendronate Alendronate No Alendronat Sodium 35 Sodium 35 e Sodium MG MG 35 MG Paxil 40 MG Paxil 40 MG No Paxil 40 MG Vitamin D3 Vitamin D3 No Vitamin D3 125 MCG 125 MCG 125 MCG (5000 UT) (5000 UT) (5000 UT) amLODIPine amLODIPine No 1{table QD amLODIPine Besylate Besylate t} Besylate 2.5 MG 2.5 MG 2.5 MG Naproxen Naproxen No 1{table BID Naproxen 500 MG 500 MG t} 500 MG amLODIPine amLODIPine No amLODIPine Besylate Besylate Besylate 2.5 MG 2.5 MG 2.5 MG PARoxetine PARoxetine No 1{table QD PARoxetine HCl 40 MG HCl 40 MG t_in_th HCl 40 MG e_morni ng} ALPRAZolam ALPRAZolam No 1{table ALPRAZolam 0.5 MG 0.5 MG t} 0.5 MG Paxil 40 MG Paxil 40 MG No QD Paxil 40 MG PARoxetine PARoxetine No QD PARoxetine HCl 20 MG HCl 20 MG HCl 20 MG B Complex B Complex No B Complex Alendronate Alendronate No 1{table Alendronat Sodium 35 Sodium 35 t} e Sodium MG MG 35 MG Alendronate Alendronate No Alendronat Sodium 35 Sodium 35 e Sodium MG MG 35 MG Paxil 40 MG Paxil 40 MG No Paxil 40 MG Vitamin D3 Vitamin D3 No Vitamin D3 125 MCG 125 MCG 125 MCG (5000 UT) (5000 UT) (5000 UT) amLODIPine amLODIPine No 1{table QD amLODIPine Besylate Besylate t} Besylate 2.5 MG 2.5 MG 2.5 MG Naproxen Naproxen No 1{table BID Naproxen 500 MG 500 MG t} 500 MG amLODIPine amLODIPine No amLODIPine Besylate Besylate Besylate 2.5 MG 2.5 MG 2.5 MG PARoxetine PARoxetine No 1{table QD PARoxetine HCl 40 MG HCl 40 MG t_in_th HCl 40 MG e_morni ng} ALPRAZolam ALPRAZolam No 1{table ALPRAZolam 0.5 MG 0.5 MG t} 0.5 MG Paxil 40 MG Paxil 40 MG No QD Paxil 40 MG PARoxetine PARoxetine No QD PARoxetine HCl 20 MG HCl 20 MG HCl 20 MG B Complex B Complex No B Complex Alendronate Alendronate No 1{table Alendronat Sodium 35 Sodium 35 t} e Sodium MG MG 35 MG amLODIPine amLODIPine No 1{table QD amLODIPine Besylate Besylate t} Besylate 2.5 MG 2.5 MG 2.5 MG Vitamin D3 Vitamin D3 No Vitamin D3 125 MCG 125 MCG 125 MCG (5000 UT) (5000 UT) (5000 UT) PARoxetine PARoxetine No QD PARoxetine HCl 20 MG HCl 20 MG HCl 20 MG amLODIPine amLODIPine No 1{table QD amLODIPine Besylate Besylate t} Besylate 2.5 MG 2.5 MG 2.5 MG ALPRAZolam ALPRAZolam No 1{table ALPRAZolam 0.5 MG 0.5 MG t} 0.5 MG Naproxen Naproxen No 1{table BID Naproxen 500 MG 500 MG t} 500 MG Paxil 40 MG Paxil 40 MG No QD Paxil 40 MG B Complex B Complex No B Complex Alendronate Alendronate No 1{table Alendronat Sodium 35 Sodium 35 t} e Sodium MG MG 35 MG amLODIPine amLODIPine No 1{table QD amLODIPine Besylate Besylate t} Besylate 2.5 MG 2.5 MG 2.5 MG Vitamin D3 Vitamin D3 No Vitamin D3 125 MCG 125 MCG 125 MCG (5000 UT) (5000 UT) (5000 UT) PARoxetine PARoxetine No QD PARoxetine HCl 20 MG HCl 20 MG HCl 20 MG amLODIPine amLODIPine No 1{table QD amLODIPine Besylate Besylate t} Besylate 2.5 MG 2.5 MG 2.5 MG Naproxen Naproxen No 1{table BID Naproxen 500 MG 500 MG t} 500 MG Paxil 40 MG Paxil 40 MG No QD Paxil 40 MG B Complex B Complex No B Complex Alendronate Alendronate No 1{table Alendronat Sodium 35 Sodium 35 t} e Sodium MG MG 35 MG amLODIPine amLODIPine No 1{table QD amLODIPine Besylate Besylate t} Besylate 2.5 MG 2.5 MG 2.5 MG Vitamin D3 Vitamin D3 No Vitamin D3 125 MCG 125 MCG 125 MCG (5000 UT) (5000 UT) (5000 UT) PARoxetine PARoxetine No QD PARoxetine HCl 20 MG HCl 20 MG HCl 20 MG amLODIPine amLODIPine No 1{table QD amLODIPine Besylate Besylate t} Besylate 2.5 MG 2.5 MG 2.5 MG Naproxen Naproxen No 1{table BID Naproxen 500 MG 500 MG t} 500 MG Paxil 40 MG Paxil 40 MG No QD Paxil 40 MG B Complex B Complex No B Complex Alendronate Alendronate No 1{table Alendronat Sodium 35 Sodium 35 t} e Sodium MG MG 35 MG amLODIPine amLODIPine No 1{table QD amLODIPine Besylate Besylate t} Besylate 2.5 MG 2.5 MG 2.5 MG Vitamin D3 Vitamin D3 No Vitamin D3 125 MCG 125 MCG 125 MCG (5000 UT) (5000 UT) (5000 UT) amLODIPine amLODIPine No 1{table QD amLODIPine Besylate Besylate t} Besylate 2.5 MG 2.5 MG 2.5 MG PARoxetine PARoxetine No PARoxetine HCl 40 MG HCl 40 MG HCl 40 MG Naproxen Naproxen No 1{table BID Naproxen 500 MG 500 MG t} 500 MG PARoxetine PARoxetine No PARoxetine HCl 20 MG HCl 20 MG HCl 20 MG B Complex B Complex No B Complex Alendronate Alendronate No 1{table Alendronat Sodium 35 Sodium 35 t} e Sodium MG MG 35 MG amLODIPine amLODIPine No 1{table QD amLODIPine Besylate Besylate t} Besylate 2.5 MG 2.5 MG 2.5 MG Vitamin D3 Vitamin D3 No Vitamin D3 125 MCG 125 MCG 125 MCG (5000 UT) (5000 UT) (5000 UT) amLODIPine amLODIPine No 1{table QD amLODIPine Besylate Besylate t} Besylate 2.5 MG 2.5 MG 2.5 MG PARoxetine PARoxetine No PARoxetine HCl 40 MG HCl 40 MG HCl 40 MG Naproxen Naproxen No 1{table BID Naproxen 500 MG 500 MG t} 500 MG PARoxetine PARoxetine No PARoxetine HCl 20 MG HCl 20 MG HCl 20 MG B Complex B Complex No B Complex Alendronate Alendronate No 1{table Alendronat Sodium 35 Sodium 35 t} e Sodium MG MG 35 MG ALPRAZolam ALPRAZolam No 1{table ALPRAZolam 0.5 MG 0.5 MG t} 0.5 MG PARoxetine PARoxetine No 1{table QD PARoxetine HCl 40 MG HCl 40 MG t_in_th HCl 40 MG e_morni ng} B Complex B Complex No B Complex Paxil 40 MG Paxil 40 MG No 1{table QD Paxil 40 t_in_th MG e_morni ng} Naproxen Naproxen No 1{table BID Naproxen 500 MG 500 MG t} 500 MG Paxil 40 MG Paxil 40 MG No Paxil 40 MG Vitamin D3 Vitamin D3 No Vitamin D3 125 MCG 125 MCG 125 MCG (5000 UT) (5000 UT) (5000 UT) Alendronate Alendronate No 1{table Alendronat Sodium 35 Sodium 35 t} e Sodium MG MG 35 MG Immunizations Ordered Immunization Filled Immunization Date Status Commen ts Source Name Name FluAD [facility] 2021-[facility]-25 [facility] 2021-01-25 [facility] Flu[facility] FluAD 2021-01-25 [facility] Flu[facility] FluAD 2021-01-25 [facility] Flu[facility] FluAD 2021-01-25 [facility] FluAD FluAD 2021-01-25 [facility] FluAD FluAD 2021-01-25 [facility] FluAD FluAD 2021-01-25 [facility] FluAD FluAD 2021-01-25 [facility] FluAD FluAD 2021-01-25 [facility] FluAD FluAD 2021-01-25 [facility] FluAD FluAD 2021-01-25 [facility] FluAD FluAD 2021-01-25 [facility] FluAD FluAD 2021-01-25 [facility] FluAD FluAD 2021-01-25 [facility] Shingrix Shingrix 2020-07-28 [facility] Shingrix Shingrix 2020-07-28 [facility] Shingrix Shingrix 2020-07-28 [facility] Shingrix Shingrix 2020-07-28 [facility] Shingrix Shingrix 2020-07-28 [facility] Shingrix Shingrix 2020-07-28 [facility] Shingrix Shingrix 2020-07-28 [facility] Shingrix Shingrix 2020-07-28 [facility] Shingrix Shingrix 2020-07-28 [facility] Shingrix Shingrix 2020-07-28 [facility] Shingrix Shingrix 2020-07-28 [facility] Shingrix Shingrix 2020-07-28 [facility] Shingrix Shingrix 2020-07-28 [facility] Shingrix Shingrix 2020-07-28 [facility] Shingrix Shingrix 2020-07-28 [facility] FluAD FluAD 2020-02-04 [facility] FluAD FluAD 2020-02-04 [facility] FluAD FluAD 2020-02-04 [facility] FluAD FluAD 2020-02-04 [facility] FluAD FluAD 2020-02-04 [facility] 08[facility] FluAD FluAD 2020-02-04 [facility] 08:[facility] FluAD FluAD 2020-02-04 [facility] 08[facility] FluAD FluAD 2020-02-04 [facility] 08:[facility] FluAD FluAD 2020-02-04 [facility] 08:[facility] FluAD FluAD 2020-02-04 [facility] FluAD FluAD 2020-02-04 [facility] 08[facility] FluAD FluAD 2020-02-04 [facility] 08:[facility] FluAD FluAD 2020-02-04 [facility] 08[facility] FluAD FluAD 2020-02-04 [facility] 08:[facility] FluAD FluAD 2020-02-04 [facility] Pneumovax (PPSV23) Pneumovax (PPSV23) 2020-01-07 [facility] [place]neumovax (PPS[place]neumov[place] (PPSV23) 2020-01-07 Completed [facility] [place] [facility] [place] Pneumovax (PPSV23) 2020-01-07 Completed [facility] [place] [facility] [place] Pneumovax (PPSV23) 2020-01-07 Completed [facility] [place] [facility] [place] Pneumovax (PPSV23) 2020-01-07 Completed [facility] [place] [facility] [place] Pneumovax (PPSV23) 2020-01-07 Completed [facility] [place] [facility] [place] Pneumovax (PPSV23) 2020-01-07 Completed [facility] 09[facility]09:00 [facility] [place] Pneumovax (PPSV23) Pneumovax (PPSV23) 2020-01-07 [facility] [place]PPSV23[place] Pneumovax (PPSV23) 2020-01-07 [facility] [place]neumovax [place]PPSV23[place] Pneumovax (PPSV23) 2020-01-07 [facility] [place]neumovax [place]PPSV23[place] Pneumovax (PPSV23) 2020-01-07 [facility] [place]ovax [place]PPSV23[place] Pneumovax (PPSV23) 2020-01-07 [facility] [place]neumovax [place]PPSV23[place] Pneumovax (PPSV23) 2020-01-07 [facility] [place]neumovax [place]PPSV23[place] Pneumovax (PPSV23) 2020-01-07 [facility] [place]neumovax [place]PPSV23[place] Pneumovax (PPSV23) 2020-01-07 [facility]: [facility] [place] Shingrix Shingrix 2020-01-07 [facility] Shingrix 2020-01-07 [facility] 09:04:00 [facility] Shingrix Shingrix 2020-01-07 [facility] 09:04:00 [facility] Shingrix Shingrix 2020-01-07 [facility] 09:04:[facility] Shingrix Shingrix 2020-01-07 [facility]:04:[facility] Shingrix Shingrix 2020-01-07 [facility] 09:04:[facility] Shingrix Shingrix 2020-01-07 [facility] 09:04:00 [facility] Shingrix Shingrix 2020-01-07 [facility] 09:04:00 [facility] Shingrix Shingrix 2020-01-07 [facility] 09:04:[facility] Shingrix Shingrix 2020-01-07 [facility] 09:04:00 [facility] Shingrix Shingrix 2020-01-07 [facility] 09:04:00 [facility] Shingrix Shingrix 2020-01-07 [facility] 09:04:00 [facility] Shingrix Shingrix 2020-01-07 [facility] 09:04:00 [facility] Shingrix Shingrix 2020-01-07 [facility] 09:04:00 [facility] Shingrix Shingrix 2020-01-07 [facility] 09:04:[facility] Pneumovax (PPSV23) Pneumovax (PPSV23) 2020-01-07 [facility]:00:[facility] Shingrix Shingrix 2020-01-07 [facility] [place] Kenalog Kenalog 2019-05-04 Completed [facility] (Triamcinolone) (Triamcinolone) 09:55:00 [facility] Kenalog Kenalog 2019-05-04 Completed [facility] (Triamcinolone) (Triamcinolone) 09:55:00 - [facility] FluAD FluAD 2019-02-03 Completed [facility] 09:26:00 [facility] FluAD FluAD 2019-02-03 [facility]::[facility] FluAD FluAD 2019-02-03 [facility]::[facility] FluAD FluAD 2019-02-03 Com[facility] 09:26:00 [facility] FluAD FluAD 2019-02-03 [facility] 09[facility]26:00 [facility] FluAD FluAD 2019-02-03 Com[facility] 09:26:00 [facility] FluAD FluAD 2019-02-03 [facility] FluAD FluAD 2019-02-03 [facility]::[facility] FluAD FluAD 2019-02-03 [facility]::[facility] FluAD FluAD 2019-02-03 [facility]::[facility] FluAD FluAD 2019-02-03 [facility] 09:26:00 [facility] FluAD FluAD 2019-02-03 [facility]::[facility] FluAD FluAD 2019-02-03 [facility]::[facility] FluAD FluAD 2019-02-03 [facility] 09::[facility] - [facility] FluAD FluAD 2019-02-03 Com[facility] 09:26:00 [facility] FluAD FluAD 2019-02-03 Com[facility] 00:00:00 [facility] Kenalog Kenalog 2018-07-17 Completed [facility] (Triamcinolone) (Triamcinolone) 08:15:00 - [facility] Kenalog Kenalog 2018-07-17 Completed [facility] (Triamcinolone) (Triamcinolone) 08:15:00 - [facility] Prevnar 13 Prevnar 13 2018-06-13 Completed [facility] -Pneumonia Vaccine -Pneumonia Vaccine 10:53:00 - [facility] Prevnar 13 Prevnar 13 2018-06-13 Completed [facility] -Pneumonia Vaccine -Pneumonia Vaccine 10:53:00 - [facility] Prevnar 13 Prevnar 13 2018-06-13 Completed [facility] -Pneumonia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
[2022-02-08 10:40] LABS: Urine Blood Trace-intact (Negative); Urine Glucose Negative (Negative); Urine Protein Negative (Negative)
[2022-02-08 10:46] LABS: Absolute Lymphocytes (CBC) 1.9 K/uL (0.7-4.9); Hematocrit 42.9 % (36.0-45.0); Lymphocytes % 34.3 % (15.3-44.8); MCV 90.2 fL (80-100); RBC Red Blood Cell Count 4.76 M/uL (3.86-4.86)
[2022-02-08 10:48] LABS: Protime INR 0.97
[2022-02-08 11:00] LABS: SARS-CoV-2 Antigen Rapid Res Negative (Negative)
[2022-02-08 11:02] LABS: Barbiturates NEGATIVE (NEGATIVE); Benzodiazepines NEGATIVE (NEGATIVE); Cocaine NEGATIVE (NEGATIVE); METHAMPHETAM NEGATIVE (NEGATIVE); Methadone NEGATIVE (NEGATIVE); Opiates NEGATIVE (NEGATIVE); Phencyclidine NEGATIVE (NEGATIVE); THC Cannibis NEGATIVE (NEGATIVE)
[2022-02-08 11:06] LABS: ALT/SGPT 20 U/L (12-78); AST/SGOT 16 U/L (15-37); Alkaline Phosphatase 91 U/L (45-117); BUN Blood Urea Nitrogen 13 mg/dL (7-18); Bicarbonate 27 mmol/L (21-32); Bilirubin Direct 0.1 mg/dL (0-0.2); Bilirubin Total 0.3 mg/dL (0.2-1.0); Glomerular Filtration Rate 96 ml/min (=/>90); Glucose Level 110 mg/dL (74-106); Potassium 3.8 mmol/L (3.5-5.1); Sodium Level 142 mmol/L (136-145)
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
--- NOTE | 2022-02-08 18:15 | RAD REPORT ---
EXAM DESCRIPTION: CT - Head Brain Wo Cont - 02/08/2022 6:10 pm CLINICAL HISTORY: AMS Headache, drowsiness COMPARISON: HEAD BRAIN W O CONTRAST dated 12/28/2014; HEAD BRAIN W O CONTRAST dated 04/25/2011 TECHNIQUE: All CT scans are performed using dose optimization technique as appropriate and may inclu de automated exposure control or mA/KV adjustment according to patient size. FINDINGS: No intracranial hemorrhage, hydrocephalus or extra-axial fluid collection.No areas of brai n edema or evidence of midline shift. The paranasal sinuses and mastoids are clear. The calvarium is intact. IMPRESSION: No acute intracranial abnormality.
--- NOTE | 2022-02-08 18:55 | RAD REPORT ---
EXAM DESCRIPTION: RAD - Chest Single View - 02/08/2022 6:41 pm CLINICAL HISTORY: ams Chest pain. COMPARISON: Chest Single View dated 12/14/2015; CHEST PA AND LAT 2 VIEW dated 06/24/2012; CHEST PA AND LAT 2 VIEW dated 04/16/2012; CHEST PA AND LAT 2 VIEW dated 09/06/2010 FINDINGS: Portable technique limits examination quality. The lungs are grossly clear. The heart is normal in size. No displaced fractures. IMPRESSION: No acute intrathoracic process suspected.
[2022-02-08 23:48] VITALS: TEMP 97.3
[2022-02-08 23:49] VITALS: O2SAT 94
[2022-02-08 23:50] VITALS: BP 152/89
--- NOTE | 2022-02-09 11:43 | EKG ---
Test Date: 2022-02-08 Test Time: 10:57:45 Events Director: KATYA MEASUREMENT RESULTS: Intervals: Rate: 67 VA: 112 QRSD: 94 QT: 426 QTc: 450 [place]: P: 46 VA: 112 QRS: -12 T: 34 INTERPRETIVE STATEMENTS: Normal sinus rhythm Minimal voltage criteria for LVH, may be normal variant Borderline ECG Compared to ECG 12/28/2014 00:48:40 No significant changes Electronically Signed On 02-09-22 11:39:08 CDT by Redd Lemon
== END 2022-02-08 22:20 ==
LOC: ER 10:04
DX: R45.851 Suicidal ideations (principal); F99 Mental disorder, not otherwise specified; F32.A Depression, unspecified; I10 Essential (primary) hypertension; Z20.822 Contact with and (suspected) exposure to COVID-19
CPT/HCPCS: 36415; 70450; 71045; 80048; 80076; 80307; 80320; 80329; 81003; 85025; 85610; 85730; 87811; 93005; 99285

== ENCOUNTER 2022-05-26 20:40 | Emergency (ER) | payer OTHER ==
--- OUTSIDE RECORDS SUMMARY | 2022-05-26 20:47 | XMS REPORT | Continuity of Care Document ---
:1955 Author Organization [facility] t Address [address] [place] [address] Care Team Providers Name Role Phone Will Ortiz Attending Clinician Unavailable DR DYAN VINES Attending Clinician Unavailable MERCY HOLT Attending Clinician Unavailable DR DYAN VINES Admitting Clinician Unavailable MER[facility] HOLT Admitting Clinician Unavailable Payers Payer Name Policy Type Policy Number Effective Date Expiration Date S jeimy [employer] MEDICARE 53 [id number] 2020 Common S pirit 00:00:00 - [facility] [id number] 1961 00:00:00 [id number] 1961 00:00:00 Problems Condition Condition Condition Status Onset Resolution Last Treating Co mments Source Name Details Category Date Date Treatment Clinician Date [id number] Mixed Problem Common hyperlipid Spirit emia [facility] 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 [facility] cataract cataract, - [facility] bilateral [facility] [id number] Urinary Problem Commo n incontinen [facility] ce, - [facility] unspecifie [facility] [id number] Generalize Problem Com mon d anxiety Spirit disorder [facility] [id number] Prolonged Problem Com mon QT Spirit interval [facility] [id number] Sinus Problem Common tachycardi [facility] a [facility] Localized, 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 - [facility] itis of ankle, St the ankle unspecifie Rafia es and/or d Medical foot osteoarthr Center itis type [id number] HTN, goal Problem Comm on below Spirit 150/90 [facility] [id number] 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[facility] major [facility] Medical without Center prior episode [id number] Carotid Problem Commo n artery Spirit disease, - [facility] unspecifie [facility] laterality Medica l , Center unspecifie d type [id number] Panic Problem Common attack [facility] [id number] Flu Problem Common vaccine [facility] need [facility] [id number] 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 [facility] Allergies, Adverse Reactions, Alerts Allergy Allergy Status Severity Reaction(s) Onset Inactive Treating Comm ents Source Name Type Date Date Clinician No Known DA Active [facility] Social History Social Habit Start Date Stop Date Quantity Comments Source History of Tobacco Use Co mmon [facility] Sex Assigned At Com mon [facility] Smoking Status Start Date Stop Date Source Never Smoker [facility] Medications Ordered Filled Start Stop Current Ordering [...] t} 0.5 MG 00:00: 00 ALPRAZolam ALPRAZolam 2022-0 No 1{table ALPRAZolam 0.5 MG 0.5 MG 8-30 t} 0.5 MG 00:00: 00 ALPRAZolam ALPRAZolam 2021-0 No 1{table ALPRAZolam 0.5 MG 0.5 MG 8-30 t} 0.5 MG 00:00: 00 ALPRAZolam ALPRAZolam 2021-0 No 1{table ALPRAZolam 0.5 MG 0.5 MG 8-30 t} 0.5 MG 00:00: 00 PARoxetine PARoxetine 0 No QD PARoxetine HCl 20 MG HCl 20 MG 2-24 HCl 20 MG 00:00: 00 PARoxetine PARoxetine 0 No QD PARoxetine HCl 20 MG HCl 20 MG 2-24 HCl 20 MG 00:00: 00 amLODIPine amLODIPine 0 No 1{table QD amLODIPine Besylate Besylate 1-13 t} Besylate 2.5 MG 2.5 MG 00:00: 2.5 MG 00 amLODIPine amLODIPine 0 No 1{table QD amLODIPine Besylate Besylate 1-13 t} Besylate 2.5 MG 2.5 MG 00:00: 2.5 MG 00 Alprazolam Alprazolam 0 Yes Will 1 tablet Common 5-15 Ortiz [facility] 00:00: - [facility] 00 [facility] BusPIRone BusPIRone 2019-0 Yes Will 1 tablet Common HCl HCl 3-10 Ortiz [facility] 00:00: - [facility] 00 [facility] busPIRone busPIRone 2019-0 No 1{table TID busPIRone [...] HCl 5 MG 00:00: 00 Kenalog Kenalog 2020-0 No 40mg Common (Triamcinol (Triamcinol 1-06 S pirit one) one) 00:00: - [facility] 00 [facility] Kenalog Kenalog 2020-0 No 40mg Common (Triamcinol (Triamcinol 1-06 S pirit one) one) 00:00: - [facility] 00 [facility] Kenalog Kenalog 2020-0 No 40mg Common (Triamcinol (Triamcinol 1-06 S pirit one) one) 00:00: - [facility] 00 [facility] Kenalog Kenalog 2020-0 No 40mg Common (Triamcinol (Triamcinol 1-06 S pirit one) one) 00:00: - [facility] 00 [facility] Kenalog Kenalog 2020-0 No 40mg Common (Triamcinol (Triamcinol 1-06 S pirit one) one) 00:00: - [facility] 00 [facility] Kenalog Kenalog 2020-0 No 40mg Common (Triamcinol (Triamcinol 1-06 S pirit one) one) 00:00: - [facility] 00 [facility] Kenalog Kenalog 2020-0 No 40mg Common (Triamcinol (Triamcinol 1-06 S pirit one) one) 00:00: - [facility] 00 [facility] Kenalog Kenalog 2020-0 No 40mg Common (Triamcinol (Triamcinol 1-06 S pirit one) one) 00:00: - [facility] 00 [facility] Kenalog Kenalog 2020-0 No 40mg Common (Triamcinol (Triamcinol 1-06 S pirit one) one) 00:00: - [facility] 00 [facility] Kenalog Kenalog 2020-0 No 40mg Common (Triamcinol (Triamcinol 1-06 S pirit one) one) 00:00: - [facility] 00 [facility] Kenalog Kenalog 2020-0 No 40mg Common (Triamcinol (Triamcinol 1-06 S pirit one) one) 00:00: - [facility] 00 [facility] Kenalog Kenalog 2020-0 No 40mg Common (Triamcinol (Triamcinol 1-06 S pirit one) one) 00:00: - [facility] 00 [facility] Kenalog Kenalog 2020-0 No 40mg Common (Triamcinol (Triamcinol 1-06 S pirit one) one) 00:00: - [facility] 00 [facility] Kenalog Kenalog 2020-0 No 40mg Common (Triamcinol (Triamcinol 1-06 S pirit one) one) 00:00: - [facility] 00 [facility] Kenalog Kenalog 2020-0 No 40mg Common (Triamcinol (Triamcinol 1-06 S pirit one) one) 00:00: - [facility] 00 [facility] Neomycin-Po Neomycin-Po 2018-04 Yes Will 4 drops Common lymyxin-HC lymyxin-HC 2-24 Ortiz into Sp alirio 00:00: affected - [facility] 00 ear [facility] Neomycin-Po Neomycin-Po 2018- No 4{drops TID Neomycin-P lymyxin-HC lymyxin-HC 2-24 _into_a olymyxin-H 3.5-79256-8 3.5-02518-6 00:00: ffected C 00 _ear} 3.5-23402- 1 Neomycin-Po Neomycin-Po 2019-1 No 4{drops TID Neomycin-P lymyxin-HC lymyxin-HC 2-24 _into_a olymyxin-H 3.515340-5 3.551750-2 00:00: ffected C 00 _ear} 3.5-- 1 Neomycin-Po Neomycin-Po 2018-04 No 4{drops TID Neomycin-P lymyxin-HC lymyxin-HC 2-24 _into_a olymyxin-H 3.5-11107-7 3.543198-2 00:00: ffected C 00 _ear} 3.5-- 1 Neomycin-Po Neomycin-Po 2018-04 No 4{drops TID Neomycin-P lymyxin-HC lymyxin-HC 2-24 _into_a olymyxin-H 3.5-21731-0 3.5-83604-6 00:00: ffected C 00 _ear} 3.5-- Neomycin-Po Neomycin-Po 2018-04 No 4{drops TID Neomycin-P lymyxin-HC lymyxin-HC 2-24 _into_a olymyxin-H 3.5-89348-9 3.5-90481-6 00:00: ffected C 00 _ear} 3.535113- 1 Neomycin-Po Neomycin-Po 2018-04 No 4{drops TID Neomycin-P lymyxin-HC lymyxin-HC 2-24 _into_a olymyxin-H 3.598397-7 3.5-17551-3 00:00: ffected C 00 _ear} 3.5- 1 Neomycin-Po Neomycin-Po 2018-04 No 4{drops TID Neomycin-P lymyxin-HC lymyxin-HC 2-24 _into_a olymyxin-H 3.599724-3 3.5-47680-8 00:00: ffected C 00 _ear} 3.5-99079- 1 Neomycin-Po Neomycin-Po 2018-04 No 4{drops TID Neomycin-P lymyxin-HC lymyxin-HC 2-24 _into_a olymyxin-H 3.5-81869-0 3.5-15708-5 00:00: ffected C 00 _ear} 3.5-72051- 1 Neomycin-Po Neomycin-Po 2018-04 No 4{drops TID Neomycin-P lymyxin-HC lymyxin-HC 2-24 _into_a olymyxin-H 3.537286-4 3.536518-8 00:00: ffected C 00 _ear} 3.- Neomycin-Po Neomycin-Po 2019- No 4{drops TID Neomycin-P lymyxin-HC lymyxin-HC 2-24 _into_a olymyxin-H 3.567808-5 3.552271-8 00:00: ffected C 00 _ear} 3.5- Gela Kenalog 2019-0 No 40mg Common (Triamcinol (Triamcinol 3-21 S pirit one) one) 00:00: - [facility] 00 [facility] Gela Kenalog 2019-0 No 40mg Common (Triamcinol (Triamcinol 3-21 S pirit one) one) 00:00: - [facility]I [facility] Gela Kenalog 2019-0 No 40mg Common (Triamcinol (Triamcinol 3-21 S pirit one) one) 00:00: - [facility] 00 [facility] Kenchiki Kenalog 2019-0 No 40mg Common (Triamcinol (Triamcinol 3-21 S pirit one) one) 00:00: - [facility] 00 [facility] Ken[place]iki Kenalog 2019-0 No 40mg Common (Triamcinol (Triamcinol 3-21 S pirit one) one) 00:00: - [facility]I [facility] [place] Kenalog 2019-0 No 40mg Common (Triamcinol (Triamcinol 3-21 S pirit one) one) 00:00: - [facility] 00 [facility] Kenalog Kenalog 2019-0 No 40mg Common (Triamcinol (Triamcinol 3-21 S pirit one) one) 00:00: - [facility] 00 [facility] Gela Kenalog 2019-0 No 40mg Common (Triamcinol (Triamcinol 3-21 S pirit one) one) 00:00: - [facility]I [facility] Gela Kenalog 2019-0 No 40mg Common (Triamcinol (Triamcinol 3-21 S pirit one) one) 00:00: [facility] (Triamcinol (Triamcinol 3-21 S pirit one) one) 00:00: - [facility] 00 [facility] Gela Ren 2018-0 No 40mg Common (Triamcinol (Triamcinol 3-21 S pirit one) one) 00:00: - [facility] 00 [facility] Gela Ren 2018-0 No 40mg Common (Triamcinol (Triamcinol 3-21 S pirit one) one) 00:00: - [facility] 00 [facility] 2018-0 No 40mg Common (Triamcinol (Triamcinol 3-21 S pirit one) one) 00:00: - [facility] 00 [facility] 2018-0 No 40mg Common (Triamcinol (Triamcinol 3-21 S pirit one) one) 00:00: - [facility]I [facility] Gela 0 No 40mg Common (Triamcinol (Triamcinol 3-21 S pirit one) one) 00:00: - [facility] 00 [facility] Paroxetine Paroxetine Yes Will 1 tablet Common HCl HCl Ortiz in the [facility] Naproxen Naproxen Yes Will 1 tablet C ommon Ortiz [facility] Amlodipine Amlodipine Yes Will 1 tablet Common Besylate Besylate Ortiz [facility] Paxil Paxil Yes Will 1 tablet Common Ortiz in the [facility] Alendronate Alendronate Yes Will 1 tablet Common Sodium Sodium Ortiz [facility] Alendronate Alendronate No Alendronat Sodium 35 Sodium [...] t} e Sodium MG MG 35 MG Naproxen Naproxen No 1{table BID Naproxen 500 MG 500 MG t} 500 MG PARoxetine PARoxetine No QD PARoxetine HCl 20 MG HCl 20 MG HCl 20 MG Vitamin D3 Vitamin D3 No Vitamin D3 125 MCG 125 MCG 125 MCG (5000 UT) (5000 UT) (5000 UT) amLODIPine amLODIPine No 1{table QD amLODIPine Besylate Besylate t} Besylate 2.5 MG 2.5 MG 2.5 MG ALPRAZolam ALPRAZolam No 1{table ALPRAZolam 0.5 MG 0.5 MG t} 0.5 MG B Complex B Complex No B Complex PARoxetine PARoxetine No PARoxetine HCl 40 MG HCl 40 MG HCl 40 MG Paxil 40 MG Paxil 40 MG No QD Paxil 40 MG PARoxetine PARoxetine No PARoxetine HCl 20 MG HCl 20 MG HCl 20 MG amLODIPine amLODIPine No 1{table QD amLODIPine Besylate Besylate t} Besylate 2.5 MG 2.5 MG 2.5 MG Alendronate Alendronate No 1{table Alendronat Sodium 35 Sodium 35 t} e Sodium MG MG 35 MG Naproxen Naproxen No 1{table BID Naproxen 500 MG 500 MG t} 500 MG PARoxetine PARoxetine No QD PARoxetine HCl 20 MG HCl 20 MG HCl 20 MG Vitamin D3 Vitamin D3 No Vitamin D3 125 MCG 125 MCG 125 MCG (5000 UT) (5000 UT) (5000 UT) amLODIPine amLODIPine No 1{table QD amLODIPine Besylate Besylate t} Besylate 2.5 MG 2.5 MG 2.5 MG ALPRAZolam ALPRAZolam No 1{table ALPRAZolam 0.5 MG 0.5 MG t} 0.5 MG B Complex B Complex No B Complex PARoxetine PARoxetine No PARoxetine HCl 40 MG HCl 40 MG HCl 40 MG Paxil 40 MG Paxil 40 MG No QD Paxil 40 MG PARoxetine PARoxetine No PARoxetine HCl 20 MG HCl 20 MG HCl 20 MG amLODIPine amLODIPine No 1{table QD amLODIPine Besylate Besylate t} Besylate 2.5 MG 2.5 MG 2.5 MG Alendronate Alendronate No 1{table Alendronat Sodium 35 Sodium 35 t} e Sodium MG MG 35 MG Naproxen Naproxen No 1{table BID Naproxen 500 MG 500 MG t} 500 MG PARoxetine PARoxetine No QD PARoxetine HCl 20 MG HCl 20 MG HCl 20 MG Vitamin D3 Vitamin D3 No Vitamin D3 125 MCG 125 MCG 125 MCG (5000 UT) (5000 UT) (5000 UT) amLODIPine amLODIPine No 1{table QD amLODIPine Besylate Besylate t} Besylate 2.5 MG 2.5 MG 2.5 MG ALPRAZolam ALPRAZolam No 1{table ALPRAZolam 0.5 MG 0.5 MG t} 0.5 MG B Complex B Complex No B Complex PARoxetine PARoxetine No PARoxetine HCl 40 MG HCl 40 MG HCl 40 MG Paxil 40 MG Paxil 40 MG No QD Paxil 40 MG PARoxetine PARoxetine No PARoxetine HCl 20 MG HCl 20 MG HCl 20 MG amLODIPine amLODIPine No 1{table QD amLODIPine Besylate Besylate t} Besylate 2.5 MG 2.5 MG 2.5 MG Alendronate Alendronate No 1{table Alendronat Sodium 35 Sodium 35 t} e Sodium MG MG 35 MG ALPRAZolam ALPRAZolam No 1{table ALPRAZolam 0.5 MG 0.5 MG t} 0.5 MG Naproxen Naproxen No 1{table BID Naproxen 500 MG 500 MG t} 500 MG Paxil 40 MG Paxil 40 MG No QD Paxil 40 MG amLODIPine amLODIPine No 1{table QD amLODIPine Besylate Besylate t} Besylate 2.5 MG 2.5 MG 2.5 MG Alendronate Alendronate No 1{table Alendronat Sodium 35 Sodium 35 t} e Sodium MG MG 35 MG PARoxetine PARoxetine No QD PARoxetine HCl 20 MG HCl 20 MG HCl 20 MG ALPRAZolam ALPRAZolam No 1{table ALPRAZolam 0.5 MG 0.5 MG t} 0.5 MG Naproxen Naproxen No 1{table BID Naproxen 500 MG 500 MG t} 500 MG Paxil 40 MG Paxil 40 MG No QD Paxil 40 MG amLODIPine amLODIPine No 1{table QD amLODIPine Besylate Besylate t} Besylate 2.5 MG 2.5 MG 2.5 MG Alendronate Alendronate No 1{table Alendronat Sodium 35 Sodium 35 t} e Sodium MG MG 35 MG PARoxetine PARoxetine No QD PARoxetine HCl 20 MG HCl 20 MG HCl 20 MG ALPRAZolam ALPRAZolam No 1{table ALPRAZolam 0.5 MG 0.5 MG t} 0.5 MG Naproxen Naproxen No 1{table BID Naproxen 500 MG 500 MG t} 500 MG Paxil 40 MG Paxil 40 MG No QD Paxil 40 MG amLODIPine amLODIPine No 1{table QD amLODIPine Besylate Besylate t} Besylate 2.5 MG 2.5 MG 2.5 MG Alendronate Alendronate No 1{table Alendronat Sodium 35 Sodium 35 t} e Sodium MG MG 35 MG PARoxetine PARoxetine No QD PARoxetine HCl [...] FluAD 2021-01-25 Completed [facility] 08:32:00 - [facility] FluAD FluAD 2021-01-25 Completed [facility] 08:32:00 - [facility] FluAD FluAD 2021-01-25 Completed [facility] 08:32:00 - [facility] FluAD FluAD 2021-01-25 Completed [facility] 08:32:00 - [facility] FluAD FluAD 2021-01-25 Completed [facility] 08:32:00 - [facility] FluAD FluAD 2021-01-25 Completed [facility] 08:32:00 - [facility] FluAD FluAD 2021-01-25 Completed [facility] 08:32:00 - [facility] FluAD FluAD 2021-01-25 Completed [facility] 08:32:00 - [facility] FluAD FluAD 2021-01-25 Completed [facility] 08:32:00 - [facility] FluAD FluAD 2021-01-25 Completed [facility] 08:32:00 - [facility] FluAD FluAD 2021-01-25 Completed [facility] 08:32:00 - [facility] FluAD FluAD 2021-01-25 Completed [facility] 08:32:00 - [facility] FluAD FluAD 2021-01-25 Completed [facility] 08:32:00 - [facility] FluAD FluAD 2021-01-25 Completed [facility] 08:32:00 - [facility] FluAD FluAD 2021-01-25 Completed [facility] 08:32:00 - [facility] FluAD FluAD 2021-01-25 Completed [facility] 08:32:00 - [facility] FluAD FluAD 2021-01-25 Completed [facility] 08:32:00 - [facility] FluAD FluAD 2021-01-25 Completed [facility] 08:32:00 - [facility] FluAD FluAD 2021-01-25 Completed [facility] 08:32:00 - [facility] FluAD FluAD 2021-01-25 Completed [facility] 08:32:00 - [facility] FluAD FluAD 2021-01-25 Completed [facility] 08:32:00 - [facility] Shingrix Shingrix 2020-07-28 Completed [facility] 09:05:00 - [facility] Shingrix Shingrix 2020-07-28 Completed [facility] 09:05:00 - [facility] Shingrix Shingrix 2020-07-28 Completed [facility] 09:05:00 - [facility] Shingrix Shingrix 2020-07-28 Completed [facility] 09:05:00 - [facility] Shingrix Shingrix 2020-07-28 Completed [facility] 09:05:00 - [facility] Shingrix Shingrix 2020-07-28 Completed [facility] 09:05:00 - [facility] Shingrix Shingrix 2020-07-28 Completed [facility] 09:05:00 - [facility] Shingrix Shingrix 2020-07-28 Completed [facility] 09:05:00 - [facility] Shingrix Shingrix 2020-07-28 Completed [facility] 09:05:00 - [facility] Shingrix Shingrix 2020-07-28 Completed [facility] 09:05:00 - [facility] Shingrix Shingrix 2020-07-28 Completed [facility] 09:05:00 - [facility] Shingrix Shingrix 2020-07-28 Completed [facility] 09:05:00 - [facility] Shingrix Shingrix 2020-07-28 Completed [facility] 09:05:00 - [facility] Shingrix Shingrix 2020-07-28 Completed [facility] 09:05:00 - [facility] Shingrix Shingrix 2020-07-28 Completed [facility] 09:05:00 - [facility] Shingrix Shingrix 2020-07-28 Completed [facility] 09:05:00 - [facility] Shingrix Shingrix 2020-07-28 Completed [facility] 09:05:00 - [facility] Shingrix Shingrix 2020-07-28 Completed [facility] 09:05:00 - [facility] Shingrix Shingrix 2020-07-28 Completed [facility] 09:05:00 - [facility] Shingrix Shingrix 2020-07-28 Completed [facility] 09:05:00 - [facility] Shingrix Shingrix 2020-07-28 Completed [facility] 09:05:00 - [facility] FluAD FluAD 2020-02-04 Completed [facility] 08:26:00 - [facility] FluAD FluAD 2020-02-04 Completed [facility] 08:26:00 - [facility] FluAD FluAD 2020-02-04 Completed [facility] 08:26:00 - [facility] FluAD FluAD 2020-02-04 Completed [facility] 08:26:00 - [facility] FluAD FluAD 2020-02-04 Completed [facility] 08:26:00 - [facility] FluAD FluAD 2020-02-04 Completed [facility] 08:26:00 - [facility] FluAD FluAD 2020-02-04 Completed [facility] 08:26:00 - [facility] FluAD FluAD 2020-02-04 Completed [facility] 08:26:00 - [facility] FluAD FluAD 2020-02-04 Completed [facility] 08:26:00 - [facility] FluAD FluAD 2020-02-04 Completed [facility] 08:26:00 - [facility] FluAD FluAD 2020-02-04 Completed [facility] 08:26:00 - [facility] FluAD FluAD 2020-02-04 Completed [facility] 08:26:00 - [facility] FluAD FluAD 2020-02-04 Completed [facility] 08:26:00 - [facility] FluAD FluAD 2020-02-04 Completed [facility] 08:26:00 - [facility] FluAD FluAD 2020-02-04 Completed [facility] 08:26:00 - [facility] FluAD FluAD 2020-02-04 Completed [facility] 08:26:00 - [facility] FluAD FluAD 2020-02-04 Completed [facility] 08:26:00 - [facility] FluAD FluAD 2020-02-04 Completed [facility] 08:26:00 - [facility] FluAD FluAD 2020-02-04 Completed [facility] 08:26:00 - [facility] FluAD FluAD 2020-02-04 Completed [facility] 08:26:00 - [facility] FluAD FluAD 2020-02-04 Completed [facility] 08:26:00 - [facility] Pneumovax (PPSV23) Pneumovax (PPSV23) 2020-01-07 Completed [facility] 09::00 [facility] Pneumovax (PPSV23) Pneumovax (PPSV23) 2020-01-07 Completed [facility] 09::00 - [facility] Pneumovax (PPSV23) Pneumovax (PPSV23) 2020-01-07 Completed [facility] 09::00 [facility] Pneumovax (PPSV23) Pneumovax (PPSV23) 2020-01-07 Completed [facility] 09:: [facility] Pneumovax (PPSV23) Pneumovax (PPSV23) 2020-01-07 Completed [facility] 09:: [facility] Pneumovax (PPSV23) Pneumovax (PPSV23) 2020-01-07 Completed [facility] 09:: [facility] Pneumovax (PPSV23) Pneumovax (PPSV23) 2020-01-07 Completed [facility] 09:09:00 [facility] Pneumovax (PPSV23) Pneumovax (PPSV23) 2020-01-07 Completed [facility] 09:09:00 [facility] Pneumovax (PPSV23) Pneumovax (PPSV23) 2020-01-07 Completed [facility] 09:09:00 [facility] Pneumovax (PPSV23) Pneumovax (PPSV23) 2020-01-07 Completed [facility] 09:09:00 [facility] Pneumovax (PPSV23) Pneumovax (PPSV23) 2020-01-07 Completed [facility] 09:09:00 [facility] Pneumovax (PPSV23) Pneumovax (PPSV23) 2020-01-07 Completed [facility] 09:09:00 [facility] Pneumovax (PPSV23) Pneumovax (PPSV23) 2020-01-07 Completed [facility] 09:09:00 [facility] Pneumovax (PPSV23) Pneumovax (PPSV23) 2020-01-07 Completed [facility] 09:09:00 [facility] Pneumovax (PPSV23) Pneumovax (PPSV23) 2020-01-07 Completed [facility] 09:09:00 [facility] Pneumovax (PPSV23) Pneumovax (PPSV23) 2020-01-07 Completed [facility] 09:09: [facility] Pneumovax (PPSV23) Pneumovax (PPSV23) 2020-01-07 Completed [facility] 09:09:00 [facility] Pneumovax (PPSV23) Pneumovax (PPSV23) 2020-01-07 Completed [facility] 09:09:00 [facility] Pneumovax (PPSV23) Pneumovax (PPSV23) 2020-01-07 Completed [facility] 09:09:00 [facility] Pneumovax (PPSV23) Pneumovax (PPSV23) 2020-01-07 Completed [facility] 09:09:00 [facility] Pneumovax (PPSV23) Pneumovax (PPSV23) 2020-01-07 Completed [facility] 09:09:00 - [facility] Shingrix Shingrix 2020-01-07 Completed [facility] 09:04:00 - [facility] Shingrix Shingrix 2020-01-07 Completed [facility] 09:04:00 - [facility] Shingrix Shingrix 2020-01-07 Completed [facility] 09:04:00 - [facility] Shingrix Shingrix 2020-01-07 Completed [facility] 09:04:00 - [facility] Shingrix Shingrix 2020-01-07 Completed [facility] 09:04:00 - [facility] Shingrix Shingrix 2020-01-07 Completed [facility] 09:04:00 - [facility] Shingrix Shingrix 2020-01-07 Completed [facility] 09:04:00 - [facility] Shingrix Shingrix 2020-01-07 Completed [facility] 09:04:00 - [facility] Shingrix Shingrix 2020-01-07 Completed [facility] 09:04:00 - [facility] Shingrix Shingrix 2020-01-07 Completed [facility] 09:04:00 - [facility] Shingrix Shingrix 2020-01-07 Completed [facility] 09:04:00 - [facility] Shingrix Shingrix 2020-01-07 Completed [facility] 09:04:00 - [facility] Shingrix Shingrix 2020-01-07 Completed [facility] 09:04:00 - [facility] Shingrix Shingrix 2020-01-07 Completed [facility] 09:04:00 - [facility] Shingrix Shingrix 2020-01-07 Completed [facility] 09:04:00 - [facility] Shingrix Shingrix 2020-01-07 Completed [facility] 09:04:00 - [facility] Shingrix Shingrix 2020-01-07 Completed [facility] 09:04:00 - [facility] Shingrix Shingrix 2020-01-07 Completed [facility] 09:04:00 - [facility] Shingrix Shingrix 2020-01-07 Completed [facility] 09:04:00 - [facility] Shingrix Shingrix 2020-01-07 Completed [facility] 09:04:00 - [facility] Shingrix Shingrix 2020-01-07 Completed [facility] 09:04:00 - [facility] Pneumovax (PPSV23) Pneumovax (PPSV23) 2020-01-07 Completed [facility] 00:00:00 - [facility] Shingrix Shingrix 2020-01-07 Completed [facility] 00:00:00 - [facility] Kenalog Kenalog 2019-05-04 Completed [facility] (Triamcinolone) (Triamcinolone) 09:55:00 - Emanuel [facility] 2019-[facility]-04 [facility] (Triamcinolone) (Triamcinolone) 09:55:00 - [facility] FluAD FluAD 2019-02-03 Completed [facility] 09:26:00 - [facility] FluAD FluAD 2019-02-03 Completed [facility] 09:26:00 - [facility] FluAD FluAD 2019-02-03 Completed [facility] 09:26:00 - [facility] FluAD FluAD 2019-02-03 Completed [facility] 09:26:00 - [facility] FluAD FluAD 2019-02-03 Completed [facility] 09:26:00 - [facility] FluAD FluAD 2019-02-03 Completed [facility] 09:26:00 - [facility] FluAD FluAD 2019-02-03 Completed [facility] 09:26:00 - [facility] FluAD FluAD 2019-02-03 Completed [facility] 09:26:00 - [facility] FluAD FluAD 2019-02-03 Completed [facility] 09:26:00 - [facility] FluAD FluAD 2019-02-03 Completed [facility] 09:26:00 - [facility] FluAD FluAD 2019-02-03 Completed [facility] 09:26:00 - [facility] FluAD FluAD 2019-02-03 Completed [facility] 09:26:00 - [facility] FluAD FluAD 2019-02-03 Completed [facility] 09:26:00 - [facility] FluAD FluAD 2019-02-03 Completed [facility] 09:26:00 - [facility] FluAD FluAD 2019-02-03 Completed [facility] 09:26:00 - [facility] FluAD FluAD 2019-02-03 Completed [facility] 09:26:00 - [facility] FluAD FluAD 2019-02-03 Completed [facility] 09:26:00 - [facility] FluAD FluAD 2019-02-03 Completed [facility] 09:26:00 - [facility] FluAD FluAD 2019-02-03 Completed [facility] 09::00 - [facility] FluAD FluAD 2019-02-03 Completed [facility] 09::00 - [facility] FluAD FluAD 2019-02-03 Completed [facility] 09::00 - [facility] FluAD FluAD 2019-02-03 Completed [facility] 00:00:00 [facility] Kenalog Kenalog 2018-07-17 Completed [facility] (Triamcinolone) (Triamcinolone) 08:15:00 - [facility] Kenalog Kenalog 2018-07-17 Completed [facility] (Triamcinolone) (Triamcinolone) 08:15:00 [facility] Prevnar 13 Prevnar 2018-06-13 Completed [facility] -Pneumonia Vaccine -Pneumonia Vaccine 10:53:00 - [facility] Prevnar 13 Prevnar 2018-06-13 Completed [facility] -Pneumonia Vaccine -Pneumonia Vaccine 10:53:00 [facility] Prevnar 13 Prevnar 2018-06-13 Completed [facility] -Pneumonia Vaccine -Pneumonia Vaccine 10:53:00 [facility] Prevnar 13 Prevnar 2018-06-13 Completed [facility] -Pneumonia Vaccine -Pneumonia Vaccine 10:53:00 [facility] Prevnar 13 Prevnar 2018-06-13 Completed [facility] -Pneumonia Vaccine -Pneumonia Vaccine 10:53:00 [facility] Prevnar 13 Prevnar 2018-06-13 Completed [facility] -Pneumonia Vaccine -Pneumonia Vaccine 10:53:00 - [facility] Prevnar 13 Prevnar 13 2018-06-13 Completed [facility] -Pneumonia Vaccine -Pneumonia Vaccine 10:53:00 - [facility] Prevnar 13 Prevnar 13 2018-06-13 Completed [facility] -Pneumonia Vaccine -Pneumonia Vaccine 10:53:00 [facility] Prevnar 13 Prevnar 13 2018-06-13 Completed [facility] -Pneumonia Vaccine -Pneumonia Vaccine 10:53:00 [facility] Prevnar 13 Prevnar 13 2018-06-13 Completed [facility] -Pneumonia Vaccine -Pneumonia Vaccine 10:53:00 [facility] Prevnar 13 Prevnar 13 2018-06-13 Completed [facility] -Pneumonia Vaccine -Pneumonia Vaccine 10:53:00 [facility] Prevnar 13 Prevnar 13 2018-06-13 Completed [facility] -Pneumonia Vaccine -Pneumonia Vaccine 10:53:00 [facility] Prevnar 13 Prevnar 13 2018-06-13 Completed [facility] -Pneumonia Vaccine -Pneumonia Vaccine 10:53:00 - [facility] Prevnar 13 Prevnar 13 2018-06-13 Completed [facility] -Pneumonia Vaccine -Pneumonia Vaccine 10:53:00 [facility] Prevnar 13 Prevnar 13 2018-06-13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 available.FINDINGS:Brain: Normal. No hemorrhage. Unremarkable white matter. No mass effect.Cerebral ventricles: No ventriculomegaly.Paranasal sinuses: Visualized sinuses are unremarkable. No fluid levels.Mastoid air cells: Visualized mastoid air cells are well aerated.Bones/joints: Unremarkable. No acute fracture.Soft tissues: Unremarkable.IMPRESSION:No acute intracranial abnormality.This Final report was electronically signed by Daniel Hinojosa MD on Apr:53 PM CDT.Dictated By: DANIEL HINOJOSADate: 05/06/2021 22:53STLML URINALYSIS WITH [id number] 21:44:00 Test Item Value Reference Range Interpretation Comments Color (test code = Dark-Yellow UCOLR) Clarity (test code = Cloudy UCLAR) Glucose (test code = NEGATIVE NEGATIVE N UGLUC) Bilirubin (test code = NEGATIVE NEGATIVE N UBILI) Ketones (test code = NEGATIVE NEGATIVE N UKET) Specific Darden (test 1.025 1.005-1.030 A code = USPGR) Blood (test code = NEGATIVE NEGATIVE N UBLD) PH (test code = UPH) 5.5 4.5-8.0 A Protein (test code = 15 NEGATIVE A UPROT) Urobilinogen (test 0.2 See_Comment N [Automat ed message] code = U UROB) The system [employer] generated this result transmit kristy reference range : 0.2. The refere nce range was not u sed to interpret th is result as normal/abnormal . Nitrite (test code = NEGATIVE NEGATIVE N UNITR) Leukocyte Esterase Small NEGATIVE A (test code = ULEUK) RBC (test code = 21-30 0-5 A RBCUR) WBC (test code = 6-10 0-5 A WBCUR) Bacteria (test code = None Seen None Seen,Trace N UBACT) Mucous (test code = TRACE None Seen A UMUC) Squamous Epithelial TNTC 0-10 A (test code = SQEP) Calcium Oxalate (test MANY NONE SEEN A code = CAOX) [id number] 21:42:00 Test Item Value Reference Range Interpretation [...] ( 4 - SerumAlbumin)] EGFR if >60 [place] (test code mL/min/1.73m\ = EGFRAA) S\2 EGFR if Non- >60 Estimate d Glomerular [place]orran (test code mL/min/1.73m\ Filtrat ion Rate (eGFR) = EGFRNA) S\2 Reference Inter vals Decision Points for 18 years and older and average body ma ss: >= 60 Does not exc lude kidney disease. 30 - 59 Suggests mod erate chronic kidney disease and indicates the need for furthe r investigation including asses sment of proteinuria and cardiovascular factors. < 30 U sually indicates a nee d for referral for assessment and management of c hronic kidney failure. STLMLPT AND [id number] 21:28:00 Test Item Value Reference Range Interpretation Comments Protime (test code 9.8 seconds 9.5-12.1 = PT) INR (test code = 0.9 0.9-1.1 INR results are intended INR) ONLY to monitor Oral Anticoagulant t herapy in stablized patie nts. The INR Therapeutic Range is 2.0 - 3.0 Patie nts with a mechanical he art, the INR Range is 2. 5 - 3.5 STLSTAT LAB [id number] 21:19:00 Test Item Value Reference Range Interpretation Comments Troponin-I (test 0.00 ng/ml 0.00-0.08 The 99th Pe rcentile URL is code = TROP) 0.08 ng/mL for the [place] iStat Troponin I. The Joint Society of Cardiology/Amer ican College of Card iology (ESC/ACC) and xiomara boles National Academy of Clin ical Biochemistry [employer] and[employer] of Laboratory Prac tices (NACB) recommen ds [...] 24 hours after the clini aidan event. [facility] CBC WITH AUTO [id number] 21:13:00 Test Item Value Reference Range Interpretation [...] (test code = IG%) 0.1 % 0.0-0.4 [facility]
[2022-05-26] MEDS ORDERED: LORazepam 2 MG/ML VIAL ONE (21:38)
[2022-05-26 21:53] LABS: Absolute Lymphocytes (CBC) 2.3 K/uL (0.7-4.9); Hematocrit 43.3 % (36.0-45.0); Lymphocytes % 29.8 % (15.3-44.8); MCV 88.9 fL (80-100); MPV 7.6 fL (7.6-11.3); RBC Red Blood Cell Count 4.87 M/uL (3.86-4.86)
[2022-05-26 22:30] LABS: Albumin 4.1 g/dL (3.4-5.0); Bilirubin Total 0.6 mg/dL (0.2-1.0); Potassium 3.6 mmol/L (3.5-5.1)
--- NOTE | 2022-05-26 23:08 | EDPHYS ---
Physician Documentation [facility] Name: Josie Duarte Age: 67 yrs Sex: Female : 1955 Arrival Date: 05/26/2022 Time: 20:47 Bed 15 Private MD: Anegl Will ED Physician Greg Bright HPI: 05/26 23:04 This 67 yrs old Female presents to ER via Ambulatory with complaints of kb dehydration. 23:06 The patient presents to the emergency department with nausea, vomiting. Onset: The kb symptoms/episode began/occurred this morning. Possible causes: unknown. The symptoms are aggravated by nothing. The symptoms are alleviated by food . Associated signs and symptoms: Pertinent positives: nausea, vomiting, Pertinent negatives: abdominal pain. Severity of symptoms: At their worst the symptoms were moderate in the emergency department the symptoms are unchanged. The patient has not experienced similar symptoms in the past. The patient has not recently seen a physician. Patient presents because she feels that she may be dehydrated. Reports fatigue, nausea and vomiting that started this morning. Reports she has been unable to tolerate oral intake.. Historical: - Allergies: 21:20 No Known Allergies; ke1 - PMHx: 21:20 Depression; Hypertensive disorder; ke1 - Immunization history:: Adult Immunizations Client reports receiving the 2nd dose of the Covid vaccine. - Social history:: Smoking status: Patient denies any tobacco usage or history of. ROS: 23:06 Constitutional: Negative for fever, chills, and weight loss. kb 23:06 Abdomen/GI: Positive for nausea and vomiting, Negative for abdominal pain, diarrhea. 23:06 All other systems are negative. Exam: 23:06 Constitutional: This is a well developed, well nourished patient who is awake, alert, kb and in no acute distress. Head/Face: Normocephalic, atraumatic. ENT: Moist Mucous membranes Cardiovascular: Regular rate and rhythm with a normal S1 and S2. No gallops, murmurs, or rubs. No pulse deficits. Respiratory: Respirations even and unlabored. No increased work of breathing. Talking in full sentences Abdomen/GI: Soft, non-tender. No distention Skin: Warm, dry with normal turgor. Normal color. MS/ Extremity: Pulses equal, no cyanosis. Neurovascular intact. Full, normal range of motion. Neuro: Awake and alert, GCS 15, oriented to person, place, time, and situation. Moves all extremities. Normal gait. Vital Signs: 21:12 Weight 61.23 kg; Height 5 ft. 7 in. (170.18 cm); ke1 21:19 BP 178 / 106; Pulse 71; Resp 17; Temp 98.7; Pulse Ox 98% on R/A; ke1 22:37 BP 145 / 89; Pulse 66; Resp 17; Temp 98.6; Pulse Ox 98% on R/A; Pain 0/10; ke1 23:42 BP 136 / 89; Pulse 65; Resp 15 S; Pulse Ox 99% on R/A; ha1 21:12 Body Mass Index 21.14 (61.23 kg, 170.18 cm) ke1 MDM: 21:03 Patient medically screened. kb 23:06 Differential diagnosis: gastritis, viral gastroenteritis, gastroenteritis. Data kb reviewed: vital signs, nurses notes. Test considered but Not performed: CT: CT abdomen pelvis considered but patient has no abdominal tenderness White blood cell count normal.. Historians other than the Patient: Daughter/Son: Daughter. Counseling: I had a detailed discussion with the patient and/or guardian regarding: the historical points, exam findings, and any diagnostic results supporting the discharge/admit diagnosis, lab results, the need for outpatient follow up, a family practitioner, to return to the emergency department if symptoms worsen or persist or if there are any questions or concerns that arise at home. 05/26 21:11 Order name: CBC with Diff; Complete Time: 21:55 kb 05/26 21:11 Order name: CMP; Complete Time: 22:32 kb 05/26 21:11 Order name: Lipase; Complete Time: 22:32 kb 05/26 21:11 Order name: IV Saline Lock; Complete Time: 21:51 kb 05/26 21:11 Order name: Labs collected and sent; Complete Time: 21:51 kb 05/26 23:04 Order name: PO challenge kb Administered Medications: 21:45 Drug: Zofran (Ondansetron) 4 mg Route: IVP; Site: right forearm; ke1 21:45 Drug: Ativan (LORazepam) 1 mg Route: IVP; Site: right forearm; ke1 21:50 Drug: NS 0.9% 1000 ml Route: IV; Rate: 1 bolus; Site: right forearm; ke1 Disposition: 23:27 Co-signature as Attending Physician, Greg Bright DO I reviewed the patient's care ms3 provided by the Advanced Practice Provider and agree with the diagnosis and treatment plan. Disposition Summary: 05/26/22 23:08 Discharge Ordered Location: Home kb Condition: Stable kb Diagnosis - Nausea with vomiting, unspecified kb Followup: kb - With: Emergency Department - When: As needed - Reason: Worsening of condition Followup: kb - With: Private Physician - When: 2 - 3 days - Reason: Recheck today's complaints, Continuance of care, Re-evaluation by your physician Discharge Instructions: - Discharge Summary Sheet kb - Nausea and Vomiting, Adult, [id number] kb Forms: - Medication Reconciliation Form kb - Thank You Letter kb - Antibiotic Education kb - Prescription Opioid Use kb Prescriptions: - ondansetron 4 mg Oral - take 1 tablet by SUBLINGUAL route every 8 hours As needed; 15 tablet; Refills: kb 0, Product Selection Permitted Signatures: Dispatcher [employer] EDMary Singleton, RETAIL PLANNER-C RETAIL PLANNER-Catrachitob Greg Bright DO DO ms3 Nicholas Chavis, RN RN ke1
--- NOTE | 2022-05-26 23:08 | ER ---
Nurse's Notes [facility] Name: Josie Duarte Age: 67 yrs Sex: Female : 1955 Arrival Date: 05/26/2022 Time: 20:47 Bed 15 Private MD: Will Ortiz Diagnosis: Nausea with vomiting, unspecified Presentation: 05/26 21:12 Chief complaint: Patient states: " I think I am dehydrated and , I have been throwing ke1 up and nauseated all day and I think I have a stomach bug too". Coronavirus screen: Vaccine status: Patient reports receiving the 2nd dose of the covid vaccine. Ebola Screen: No symptoms or risks identified at this time. 21:12 Method Of Arrival: Ambulatory ke 21:19 Initial Sepsis Screen: Does the patient meet any 2 criteria? No. Patient's initial ke1 sepsis screen is negative. Does the patient have a suspected source of infection? No. Patient's initial sepsis screen is negative. Risk Assessment: Do you want to hurt yourself or someone else? Patient reports no desire to harm self or others. Onset of symptoms was May 26, 2022 at 08:00. 21:19 Acuity: CARMEN 3 ke1 Triage Assessment: 21:21 General: Appears in no apparent distress. Behavior is appropriate for age. Pain: Denies ke1 pain. Historical: - Allergies: 21:20 No Known Allergies; ke1 - PMHx: 21:20 Depression; Hypertensive disorder; ke1 - Immunization history:: Adult Immunizations Client reports receiving the 2nd dose of the Covid vaccine. - Social history:: Smoking status: Patient denies any tobacco usage or history of. Screenin:21 [facility] ED Fall Risk Assessment (Adult) History of falling in the last 3 months, ke1 including since admission No falls in past 3 months (0 pts) Confusion or Disorientation No (0 pts) Intoxicated or Sedated No (0 pts) Impaired Gait No (0 pts) Mobility Assist Device Used No (0 pt) Altered Elimination No (0 pt) Score/Fall Risk Level 0 - 2 = Low Risk. Abuse screen: Denies threats or abuse. Nutritional screening: No deficits noted. Tuberculosis screening: No symptoms or risk factors identified. Assessment: 22:37 Reassessment: Patient appears in no apparent distress at this time. Patient is alert, ke1 oriented x 3, equal unlabored respirations, skin warm/dry/pink. Patient denies pain at this time. Vital Signs: 21:12 Weight 61.23 kg; Height 5 ft. 7 in. (170.18 cm); ke1 21:19 BP 178 / 106; Pulse 71; Resp 17; Temp 98.7; Pulse Ox 98% on R/A; ke1 22:37 BP 145 / 89; Pulse 66; Resp 17; Temp 98.6; Pulse Ox 98% on R/A; Pain 0/10; ke1 23:42 BP 136 / 89; Pulse 65; Resp 15 S; Pulse Ox 99% on R/A; ha1 21:12 Body Mass Index 21.14 (61.23 kg, 170.18 cm) ke1 ED Course: 20:47 Patient arrived in ED. am2 20:47 Will Ortiz DO is Private Physician. am2 21:03 Mary Arreguin FNP-C is [facility]. kb 21:03 Greg Bright DO is Attending Physician. kb 21:12 Nicholas Chavis, RN is Primary Nurse. ke1 21:20 Triage completed. ke1 21:21 Arm band placed on right wrist. ke1 21:22 Bed in low position. Call light in reach. ke1 21:40 Inserted saline lock: 20 gauge in right forearm, using aseptic technique. ke1 21:51 CBC with Diff Sent. ke1 21:51 CMP Sent. ke1 21:51 Lipase Sent. ke1 23:43 No provider procedures requiring assistance completed. IV discontinued, intact, ha1 bleeding controlled, No redness/swelling at site. Pressure dressing applied. Administered Medications: 21:45 Drug: Zofran (Ondansetron) 4 mg Route: IVP; Site: right forearm; ke1 21:45 Drug: Ativan (LORazepam) 1 mg Route: IVP; Site: right forearm; ke1 21:50 Drug: NS 0.9% 1000 ml Route: IV; Rate: 1 bolus; Site: right forearm; ke1 Medication: 23:43 VIS not applicable for this client. ha1 Outcome: 23:08 Discharge ordered by . kb 23:43 Discharged to home ambulatory. ha1 23:43 Condition: stable 23:43 Discharge instructions given to patient, family, Instructed on discharge instructions, follow up and referral plans. medication usage, Demonstrated understanding of instructions, follow-up care, medications, Prescriptions given X 1. 23:43 Patient left the ED. ha1 Signatures: Mary Arreguin, ENRIQUE BLACKP-Agnes Rios am2 Nicholas Chavis RN RN 1 Massiel Darby RN RN ha1
[2022-05-27 00:36] VITALS: TEMP 98.6
[2022-05-27 00:47] VITALS: BP 136/89; O2SAT 99
== END 2022-05-26 23:43 | disposition home or self-care (01) ==
LOC: ER 20:40
DX: R11.2 Nausea with vomiting, unspecified (principal); I10 Essential (primary) hypertension; F32.A Depression, unspecified
CPT/HCPCS: 36415; 80053; 83690; 85025; 96374; 96375; 99284

== ENCOUNTER 2024-06-27 08:25 | Emergency (ER) | payer OTHER ==
--- OUTSIDE RECORDS SUMMARY | 2024-06-27 08:31 | XMS REPORT | Continuity of Care Document ---
Author Name Unknown Address [address] [place] [address] [facility] thconnect Address [address] [place] [address] Care Team Providers Care Welfare Eligibility Interviewer Name Role Phone Selin Lewis Primary Care Physician Will Ortiz Attending Clinician Unavailable OLLIE_RASHAD_Zaina_S Attending Clinician UnavailAugustus Ravi Attending Clinician Unavailable DR DYAN VINES Attending Clinician UnavailMERCY Vang Attending Clinician Unavailable OLLIE_ROCÍOW_Zaina_S Admitting Clinician UnavailAugustus Ravi Admitting Clinician Unavailable DR DYAN VINES Admitting Clinician UnavailMERCY Vang Admitting Clinician Unavailable Payers Payer Name Policy Type Policy Number Effective Date Expirati on Date Source AETNA MEDICARE 53 [id number] 2020 00:00:00 [facility] AETNA - PRIME (MEDICARE REPLACEMENT/ADV ANTAGE - HMO) [id number] 2020 00:00:00 [id number] 00:00:00 [id number] 1959 00:00:00 Problems Condition Name Condition Details Condition Category Status Onset Date Resolution Date Last Treatment Date Treating Clinician Comments Source Atrophic vaginitis Atrophic Vaginitis Problem Active 5-29 00:00: 00 [facility] Uterovagin al prolapse Uterovagin al Prolapse Problem Active 1-21 00:00: 00 [facility] Hypertensi ve disorder Hypertensi ve Disorder Problem Active 8 00:00: 00 [facility] Incomplete uterovagin al prolapse Incomplete Uterovagin al Prolapse Problem Active 8 00:00: 00 [facility] Atrophy of skeletal muscle of pelvis Atrophy of Skeletal Muscle of Pelvis Problem Active 8 00:00: 00 [facility] Female stress incontinen ce Female Stress Incontinen ce Problem Active 8 00:00: 00 [facility] Atrophy of vagina Atrophy of Vagina Problem Active 8 00:00: 00 [facility] Essential hypertensi on Essential Hypertensi on Problem Active 11-23 00:00: 00 [facility] Rheumatoid arthritis Rheumatoid Arthritis Problem Active 11-23 00:00: 00 [facility] Osteoporos is Osteoporos is Problem Active 11-23 00:00: 00 [facility] Urge incontinen ce of urine Urge Incontinen ce of Urine Problem Active 11-23 00:00: 00 [facility] Overactive bladder Overactive Bladder Problem Active 11-23 00:00: 00 [facility] Cystocele Cystocele Problem Active 09-29 00:00: 00 [facility] Acute vaginitis Acute Vaginitis Problem Active 12-19 00:00: 00 [facility] Disorder of bone Disorder of Bone Problem Active 12-19 00:00: 00 [facility] Gynecologi aidan examinatio n abnormal Gynecologi aidan Examinatio n Abnormal Problem Active 12-19 00:00: 00 [facility] [id number] Mixed hyperlipid emia Problem [facility] Nuclear senile cataract Age-relate d nuclear cataract, bilateral Problem [facility] [id number] Urinary incontinen ce, unspecifie d type Problem [facility] [id number] Generalize d anxiety disorder Problem [facility] [id number] Prolonged QT interval Problem [facility] [id number] Sinus tachycardi a Problem [facility] Localized, primary osteoarthr itis of the ankle and/or foot Osteoarthr itis of right ankle, unspecifie d osteoarthr itis type Problem [facility] [id number] Current moderate episode of major depressive disorder without prior episode Problem [facility] [id number] Carotid artery disease, unspecifie d laterality , unspecifie d type Problem [facility] [id number] Panic attack Problem [facility] [id number] Flu vaccine need Problem [facility] [id number] Mild cognitive impairment Problem [facility] Allergies, Adverse Reactions, Alerts Allergy Name Allergy Type Status Severity Reaction(s) Onset Date Inactive Date Treating Clinician Comments Source No Known Allergie s DA Active U 2022-04 00:00: 00 [facility] No Known Allergie s DA Active [facility] Social History Social Habit Start Date Stop Date Quantity Comments Source History of Tobacco Use [facility] Sex Assigned At [facility] Smoking Status Start Date Stop Date Source Never Smoker [facility] Medical Medications Ordered Medication Name Filled Medication Name Start Date Stop Date Current Medication? Ordering Clinician Indication Dosage Frequency Signature (SIG) Comments Components Source acetaminoph en 300 mg-codeine 30 mg tablet 10-31 00:00: 00 Yes 1mg [facility] estradiol 0.01% (0.1 mg/gram) vaginal cream Insert 0.5 g 3 times a week by vaginal route at bedtime for 30 days. estradiol 0.01% (0.1 mg/gram) vaginal cream Insert 0.5 g 3 times a week by vaginal route at bedtime for 30 days. 0 5-29 00:00: 00 No .5g Q56H estradiol 0.01% (0.1 mg/gram) vaginal cream Insert 0.5 g 3 times a week by vaginal route at bedtime for 30 days. [facility] 1 DROP IN RIGHT EYE FOUR TIMES A DAY FOR 10 DAYS. SHAKE WELL 0 7-26 00:00: 00 Yes [facility] TAKE 1 TABLET BY MOUTH AT BEDTIME 0 6-06 00:00: 00 Yes [facility] INSERT (0.5 GM) DIRECTED WITH APPLICATOR VAGINALLY THREE TIMES A WEEK 30 DAYS 0 6-05 00:00: 00 Yes [facility] ALENDRONATE 35MG 0 4-03 00:00: 00 Yes [id number] [facility] TAKE 1 TABLET BY MOUTH EVERY 12 HOURS FOR 5 DAYS 0 3-16 00:00: 00 Yes [facility] NITROFUR MON 100MG 0 3-13 00:00: 00 Yes [id number] [facility] TAKE 1 CAPSULE BY MOUTH EVERY DAY WITH FOOD 0 2-16 00:00: 00 Yes [facility] TAKE 1 TABLET BY MOUTH EVERY DAY 0 1-27 00:00: 00 Yes [facility] VENLAFAXINE 37.5 ER 0 1-25 00:00: 00 Yes [id number] [facility] TAKE 1 TABLET BY MOUTH ONE TIME PER WEEK 0 1-25 00:00: 00 Yes [facility] APPLY ONE DROP IN THE OPERATIVE EYE 4 TIMES A DAY. 0 1-09 00:00: 00 Yes [facility] PRED ACETATE 1% OP CLARISSA 0 1-09 00:00: 00 Yes 1000 [facility] Me[facility] KETOROLAC 0.5% OP SAM 0 1-09 00:00: 00 Yes 500 [facility] VENLAFAXINE 37.5MG 2021-04 2-19 00:00: 00 Yes [id number] [facility] Me[facility] TAKE 1 CAPSULE BY MOUTH ONCE DAILY WITH FOOD 2021-04 2-15 00:00: 00 Yes [facility] AMLODIPINE 2.5MG 2021-04 2-09 00:00: 00 Yes 2500 [facility] Meade ALENDRONATE 35MG 2021-04 1-19 00:00: 00 Yes [id number] [facility] PAROXETINE 40MG HCL 2021-04 1-16 00:00: 00 Yes [id number] [facility] VENLAFAXINE 75MG ER 2021-04 1-15 00:00: 00 Yes [id number] [facility] Me[facility] TAKE 1 TABLET BY MOUTH ONCE DAILY 2021-04 1-03 00:00: 00 Yes [facility] Me[facility] TAKE 1 TABLET BY MOUTH EVERY DAY WITH FOOD 2021-04 0-31 00:00: 00 Yes [facility] CLONAZEPAM 0.5MG 2021-04 0-25 00:00: 00 Yes 500 [facility] Me[facility] NITROFUR MON 100MG 2021-04 0-20 00:00: 00 Yes [id number] [facility] ARIPIPRAZOL E 2MG 2021-04 0-20 00:00: 00 Yes 2000 [facility] Me[facility] VENLAFAXINE 37.5 ER 2021-04 0-20 00:00: 00 Yes [id number] [facility] Me[facility] AMLODIPINE 2.5MG 01-15 00:00: 00 Yes 2500 [facility] Meade TAKE 1 TABLET BY MOUTH EVERY MORNING TAKE WITH 20MG FOR A TOTAL OF 60MG 90 18 00:00: 00 Yes [facility] Meade TAKE 1 TABLET BY MOUTH EVERY MORNING WITH 40 MG (40 20= 60 MG) 90 18 00:00: 00 Yes [facility] Meade 1 TABLET ORALLY ONCE A DAY NEEDED FOR SEVERE PANIC ATTACKS 8-30 00:00: 00 Yes [facility] amLODIPine Besylate 2.5 MG amLODIPine Besylate 2.5 MG -13 00:00: 00 No 1{table t} QD amLODIPine Besylate 2.5 MG Kenalog (Triamcinol one) Kenalog (Triamcinol one) 3-21 00:00: 00 No 40mg [facility] Dose Unknown 3-05 00:00: 00 Yes [facility] hydroxyzine HCl 25 mg tablet 2-27 00:00: 00 Yes 1mg [facility] lisinopril 20 mg tablet 1-10 00:00: 00 Yes 1mg [facility] alendronate 35 mg tablet Take 1 tablet every week by oral route. alendronate 35 mg tablet Take 1 tablet every week by oral route. No 1 Q1W alendronat e 35 mg tablet Take 1 tablet every week by oral route. [facility] amlodipine 2.5 mg tablet 1 tablet; Once a day; 30 day(s) amlodipine 2.5 mg tablet 1 tablet; Once a day; 30 day(s) No amlodipine 2.5 mg tablet 1 tablet; Once a day; 30 day(s) [facility] cholecalcif lainey (vitamin D3) 1,250 mcg (50,000 unit) capsule 1 capsule; 30 day(s) cholecalcif lainey (vitamin D3) 1,250 mcg (50,000 unit) capsule 1 capsule; 30 day(s) No cholecalci ferol (vitamin D3) 1,250 mcg (50,000 unit) capsule 1 capsule; 30 day(s) [facility] cranberry cranberry No cranberry [facility] Fish Oil Fish Oil No Fish Oil [facility] magnesium magnesium No magnesium [facility] Super B Complex Super B Complex No Super B Complex [facility] venlafaxine 75 mg tablet Take 1 tablet every day by oral route. venlafaxine 75 mg tablet Take 1 tablet every day by oral route. No 1 Q1D venlafaxin e 75 mg tablet Take 1 tablet every day by oral route. [facility] Myrbetriq 50 mg tablet,exte nded release Take 1 tablet every day by oral route in the morning for 30 days. Myrbetriq 50 mg tablet,exte nded release Take 1 tablet every day by oral route in the morning for 30 days. No 1 Q1D Myrbetriq 50 mg tablet,ext ended release Take 1 tablet every day by oral route in the morning for 30 days. [facility] Naproxen 500 MG Naproxen 500 MG No 1{table t} BID Naproxen 500 MG Venlafaxine HCl ER 75 MG Venlafaxine HCl ER 75 MG No Venlafaxin e HCl ER 75 MG Immunizations Ordered Immunization Name Filled Immunization Name Date Status Comments Source FluAD FluAD 2021-01-25 08:32:00 Completed [facility] FluAD FluAD 2021-01-25 08:32:00 [facility] FluAD FluAD 2021-01-25 08:32:00 Completed [facility] FluAD FluAD 2021-01-25 08:32:00 Completed [facility] FluAD FluAD 2021-01-25 08:32:00 Completed [facility] FluAD FluAD 2021-01-25 08:32:00 Completed [facility] FluAD FluAD 2021-01-25 08:32:00 Completed [facility] FluAD FluAD 2021-01-25 08:32:00 Completed [facility] FluAD FluAD 2021-01-25 08:32:00 Completed [facility] FluAD FluAD 2021-01-25 08:32:00 Completed [facility] Shingrix Shingrix 2020-07-28 09:05:00 Completed [facility] Shingrix Shingrix 2020-07-28 09:05:00 Completed [facility] Shingrix Shingrix 2020-07-28 09:05:00 Completed [facility] Shingrix Shingrix 2020-07-28 09:05:00 Completed [facility] Shingrix Shingrix 2020-07-28 09:05:00 Completed [facility] Shingrix Shingrix 2020-07-28 09:05:00 Completed [facility] Shingrix Shingrix 2020-07-28 09:05:00 Completed [facility] Shingrix Shingrix 2020-07-28 09:05:00 Completed [facility] Shingrix Shingrix 2020-07-28 09:05:00 Completed [facility] Shingrix Shingrix 2020-07-28 09:05:00 Completed [facility] FluAD FluAD 2020-02-04 08:26:00 Completed [facility] FluAD FluAD 2020-02-04 08:26:00 Completed [facility] FluAD FluAD 2020-02-04 08:26:00 Completed [facility] FluAD FluAD 2020-02-04 08:26:00 Completed [facility] FluAD FluAD 2020-02-04 08:26:00 Completed [facility] FluAD FluAD 2020-02-04 08:26:00 Completed [facility] FluAD FluAD 2020-02-04 08:26:00 Completed [facility] FluAD FluAD 2020-02-04 08:26:00 Completed [facility] FluAD FluAD 2020-02-04 08:26:00 Completed [facility] FluAD FluAD 2020-02-04 08:26:00 Completed [facility] Pneumovax (PPSV23) Pneumovax (PPSV23) 2020-01-07 09:09:00 Completed [facility] Pneumovax (PPSV23) Pneumovax (PPSV23) 2020-01-07 09:09:00 Completed [facility] Pneumovax (PPSV23) Pneumovax (PPSV23) 2020-01-07 09:09:00 Completed [facility] Pneumovax (PPSV23) Pneumovax (PPSV23) 2020-01-07 09:09:00 Completed [facility] Pneumovax (PPSV23) Pneumovax (PPSV23) 2020-01-07 09:09:00 Completed [facility] Pneumovax (PPSV23) Pneumovax (PPSV23) 2020-01-07 09:09:00 Completed [facility] Pneumovax (PPSV23) Pneumovax (PPSV23) 2020-01-07 09:09:00 Completed [facility] Pneumovax (PPSV23) Pneumovax (PPSV23) 2020-01-07 09:09:00 Completed [facility] Pneumovax (PPSV23) Pneumovax (PPSV23) 2020-01-07 09:09:00 Completed [facility] Pneumovax (PPSV23) Pneumovax (PPSV23) 2020-01-07 09:09:00 Completed [facility] Shingrix Shingrix 2020-01-07 09:04:00 Completed [facility] Shingrix Shingrix 2020-01-07 09:04:00 Completed [facility] Shingrix Shingrix 2020-01-07 09:04:00 Completed [facility] Shingrix Shingrix 2020-01-07 09:04:00 Completed [facility] Shingrix Shingrix 2020-01-07 09:04:00 Completed [facility] Shingrix Shingrix 2020-01-07 09:04:00 Completed [facility] Shingrix Shingrix 2020-01-07 09:04:00 Completed [facility] Shingrix Shingrix 2020-01-07 09:04:00 Completed [facility] Shingrix Shingrix 2020-01-07 09:04:00 Completed [facility] Shingrix Shingrix 2020-01-07 09:04:00 Completed [facility] Pneumovax (PPSV23) Pneumovax (PPSV23) 2020-01-07 00:00:00 Completed [facility] Shingrix Shingrix 2020-01-07 00:00:00 Completed [facility] Kenalog (Triamcinolone) Kenalog (Triamcinolone) 2019-05-04 09:55:00 Completed [facility] FluAD FluAD 2019-02-03 09:26:00 Completed [facility] FluAD FluAD 2019-02-03 09:26:00 Completed [facility] FluAD FluAD 2019-02-03 09:26:00 Completed [facility] FluAD FluAD 2019-02-03 09:26:00 Completed [facility] FluAD FluAD 2019-02-03 09:26:00 Completed [facility] FluAD FluAD 2019-02-03 09:26:00 Completed [facility] FluAD FluAD 2019-02-03 09:26:00 Completed [facility] FluAD FluAD 2019-02-03 09:26:00 Completed [facility] FluAD FluAD 2019-02-03 09:26:00 Completed [facility] FluAD FluAD 2019-02-03 09:26:00 Completed [facility] FluAD FluAD 2019-02-03 00:00:00 Completed [facility] Kenalog (Triamcinolone) Kenalog (Triamcinolone) 2018-07-17 08:15:00 Completed [facility] Prevnar 13 -Pneumonia Vaccine Prevnar 13 -Pneumonia Vaccine 2018-06-13 10:53:00 Completed [facility] Prevnar 13 -Pneumonia Vaccine Prevnar 13 -Pneumonia Vaccine 2018-06-13 10:53:00 Completed [facility] Prevnar 13 -Pneumonia Vaccine Prevnar 13 -Pneumonia Vaccine 2018-06-13 10:53:00 Completed [facility] Prevnar 13 -Pneumonia Vaccine Prevnar 13 -Pneumonia Vaccine 2018-06-13 10:53:00 Completed [facility] Prevnar 13 -Pneumonia Vaccine Prevnar 13 -Pneumonia Vaccine 2018-06-13 10:53:00 Completed [facility] Prevnar 13 -Pneumonia Vaccine Prevnar 13 -Pneumonia Vaccine 2018-06-13 10:53:00 Completed [facility] Prevnar 13 -Pneumonia Vaccine Prevnar 13 -Pneumonia Vaccine 2018-06-13 10:53:00 Completed [facility] Prevnar 13 -Pneumonia Vaccine Prevnar 13 -Pneumonia Vaccine 2018-06-13 10:53:00 Completed [facility] Prevnar 13 -Pneumonia Vaccine Prevnar 13 -Pneumonia Vaccine 2018-06-13 10:53:00 Completed [facility] Prevnar 13 -Pneumonia Vaccine Prevnar 13 -Pneumonia Vaccine 2018-06-13 10:53:00 Completed [facility] Prevnar 13 -Pneumonia Vaccine Prevnar 13 -Pneumonia Vaccine 2018-06-13 00:00:00 Completed [facility] FluAD FluAD Unknown Completed [facility] Shingrix Shingrix Unknown Completed [facility] Pneumovax (PPSV23) Pneumovax (PPSV23) Unknown Completed [facility] Prevnar 13 -Pneumonia Vaccine Prevnar 13 -Pneumonia Vaccine Unknown Completed [facility] FluAD FluAD Unknown Completed [facility] Shingrix Shingrix Unknown Completed [facility] Pneumovax (PPSV23) Pneumovax (PPSV23) Unknown Completed [facility] Prevnar 13 -Pneumonia Vaccine Prevnar 13 -Pneumonia Vaccine Unknown Completed [facility] FluAD FluAD Unknown Completed [facility] Shingrix Shingrix Unknown Completed [facility] Pneumovax (PPSV23) Pneumovax (PPSV23) Unknown Completed [facility] Prevnar 13 -Pneumonia Vaccine Prevnar 13 -Pneumonia Vaccine Unknown Completed [facility] FluAD FluAD Unknown Completed [facility] Shingrix Shingrix Unknown Completed [facility] Pneumovax (PPSV23) Pneumovax (PPSV23) Unknown Completed [facility] Prevnar 13 -Pneumonia Vaccine Prevnar 13 -Pneumonia Vaccine Unknown Completed [facility] FluAD FluAD Unknown Completed [facility] Shingrix Shingrix Unknown Completed [facility] Pneumovax (PPSV23) Pneumovax (PPSV23) Unknown Completed [facility] Prevnar 13 -Pneumonia Vaccine Prevnar 13 -Pneumonia Vaccine Unknown Completed [facility] FluAD FluAD Unknown Completed [facility] Shingrix Shingrix Unknown Completed [facility] Pneumovax (PPSV23) Pneumovax (PPSV23) Unknown Completed [facility] Prevnar 13 -Pneumonia Vaccine Prevnar 13 -Pneumonia Vaccine Unknown Completed [facility] FluAD FluAD Unknown Completed [facility] Shingrix Shingrix Unknown Completed [facility] Pneumovax (PPSV23) Pneumovax (PPSV23) Unknown Completed [facility] Prevnar 13 -Pneumonia Vaccine Prevnar 13 -Pneumonia Vaccine Unknown Completed [facility] FluAD FluAD Unknown Completed [facility] Shingrix Shingrix Unknown Completed [facility] Pneumovax (PPSV23) Pneumovax (PPSV23) Unknown Completed [facility] Prevnar 13 -Pneumonia Vaccine Prevnar 13 -Pneumonia Vaccine Unknown Completed [facility] FluAD FluAD Unknown Completed [facility] Shingrix Shingrix Unknown Completed [facility] Pneumovax (PPSV23) Pneumovax (PPSV23) Unknown Completed [facility] Prevnar 13 -Pneumonia Vaccine Prevnar 13 -Pneumonia Vaccine Unknown Completed [facility] FluAD FluAD Unknown Completed [facility] Shingrix Shingrix Unknown Completed [facility] Pneumovax (PPSV23) Pneumovax (PPSV23) Unknown Completed [facility] Prevnar 13 -Pneumonia Vaccine Prevnar 13 -Pneumonia Vaccine Unknown Completed [facility] FluAD FluAD Unknown Completed [facility] Shingrix Shingrix Unknown Completed [facility] Pneumovax (PPSV23) Pneumovax (PPSV23) Unknown Completed [facility] Prevnar 13 -Pneumonia Vaccine Prevnar 13 -Pneumonia Vaccine Unknown Completed [facility] FluAD FluAD Unknown Completed [facility] Shingrix Shingrix Unknown Completed [facility] Pneumovax (PPSV23) Pneumovax (PPSV23) Unknown Completed [facility] Prevnar 13 -Pneumonia Vaccine Prevnar 13 -Pneumonia Vaccine Unknown Completed [facility] FluAD FluAD Unknown Completed [facility] Shingrix Shingrix Unknown Completed [facility] Pneumovax (PPSV23) Pneumovax (PPSV23) Unknown Completed [facility] Prevnar 13 -Pneumonia Vaccine Prevnar 13 -Pneumonia Vaccine Unknown Completed [facility] FluAD FluAD Unknown Completed [facility] Shingrix Shingrix Unknown Completed [facility] Pneumovax (PPSV23) Pneumovax (PPSV23) Unknown Completed [facility] Prevnar 13 -Pneumonia Vaccine Prevnar 13 -Pneumonia Vaccine Unknown Completed [facility] FluAD FluAD Unknown Completed [facility] Shingrix Shingrix Unknown Completed [facility] Pneumovax (PPSV23) Pneumovax (PPSV23) Unknown Completed [facility] Prevnar 13 -Pneumonia Vaccine Prevnar 13 -Pneumonia Vaccine Unknown Completed [facility] Vital Signs Vital Name Observation Time Observation Value Comments S ource height 2024-03-23 13:50:00 61.5 [in_i] Comm on [facility] weight 2024-03-23 13:50:00 136.6 [lb_av] Co mmon [facility] temperature 2024-03-23 13:50:00 98.2 [degF] Com mon [facility] bmi 2024-03-23 13:50:00 25.39 kg/m2 Comm on [facility] oximetry 2024-03-23 13:50:00 97 % Commo n [facility] respiratory rate 2024-03-23 13:50:00 16 /min [facility] blood pressure systolic 2024-03-23 13:50:00 134 mm[Hg] [facility] pressure diastolic 2024-03-23 13:50:00 86 mm[Hg] Common [facility] Height 2023-09-25 00:00:00 62 [in_i] [facility] BP Systolic 2023-09-25 00:00:00 171 mm[Hg] [facility] Body Weight 2023-09-25 00:00:00 134.2 [lb_av] [facility] BP Diastolic 2023-09-25 00:00:00 104 mm[Hg] [facility] BMI (Body Mass Index) 2023-09-25 00:00:00 24.5 kg/m2 [facility] height 2023-08-06 14:40:00 61.5 [in_i] Comm on [facility] weight 2023-08-06 14:40:00 136.0 [lb_av] Co mmon [facility] temperature 2023-08-06 14:40:00 98.4 [degF] Com mon [facility] bmi 2023-08-06 14:40:00 25.28 kg/m2 Comm on [facility] oximetry 2023-08-06 14:40:00 96 % Commo n [facility] respiratory rate 2023-08-06 14:40:00 17 /min [facility] blood pressure systolic 2023-08-06 14:40:00 123 mm[Hg] Common [facility] blood pressure diastolic 2023-08-06 14:40:00 71 mm[Hg] Common [facility] BP Diastolic 2023-07-24 00:00:00 95 mm[Hg] [facility] BP Systolic 2023-07-24 00:00:00 172 mm[Hg] [facility] Body Weight 2023-07-24 00:00:00 137.4 [lb_av] [facility] Height 2023-07-24 00:00:00 62 [in_i] [facility] BMI (Body Mass Index) 2023-07-24 00:00:00 25.1 kg/m2 [facility] height 2023-04-03 15:30:00 61.5 [in_i] Comm on [facility] weight 2023-04-03 15:30:00 130.4 [lb_av] Co mmon [facility] temperature 2023-04-03 15:30:00 98.7 [degF] Com mon [facility] bmi 2023-04-03 15:30:00 24.24 kg/m2 Comm on [facility] oximetry 2023-04-03 15:30:00 98 % Commo n [facility] respiratory rate 2023-04-03 15:30:00 16 /min [facility] blood pressure systolic 2023-04-03 15:30:00 124 mm[Hg] [facility] blood pressure diastolic 2023-04-03 15:30:00 78 mm[Hg] [facility] height 2022-08-22 10:20:00 61.5 [in_i] Comm on [facility] weight 2022-08-22 10:20:00 136.3 [lb_av] Co mmon [facility] temperature 2022-08-22 10:20:00 97.4 [degF] Com mon [facility] bmi 2022-08-22 10:20:00 25.33 kg/m2 Comm on [facility] oximetry 2022-08-22 10:20:00 97 % Commo n [facility] [place] respiratory rate 2022-08-22 10:20:00 16 /min Common [facility] [place] blood pressure systolic 2022-08-22 10:20:00 120 mm[Hg] [facility] blood pressure diastolic 2022-08-22 10:20:00 78 mm[Hg] [facility] height 2022-07-09 11:20:00 61.5 [in_i] Comm on [facility] [place] weight 2022-07-09 11:20:00 138.0 [lb_av] Co on [facility] [place] temperature 2022-07-09 11:20:00 97.3 [degF] Com [facility] bmi 2022-07-09 11:20:00 25.65 kg/m2 Comm on [facility] [place] oximetry 2022-07-09 11:20:00 100 % Commo n [facility] [place] respiratory rate 2022-07-09 11:20:00 17 /min Common [facility] [place] blood pressure systolic 2022-07-09 11:20:00 137 mm[Hg] Common [facility] blood pressure diastolic 2022-07-09 11:20:00 86 mm[Hg] Common [facility] height 2022-05-23 10:20:00 61.5 [in_i] Comm on [facility] weight 2022-05-23 10:20:00 137.7 [lb_av] Co on [facility] temperature 2022-05-23 10:20:00 97.3 [degF] Com [facility] bmi 2022-05-23 10:20:00 25.59 kg/m2 Comm on [facility] [place] oximetry 2022-05-23 10:20:00 99 % Commo n [facility] [place] respiratory rate 2022-05-23 10:20:00 18 /min Common [facility] [place] blood pressure systolic 2022-05-23 10:20:00 122 mm[Hg] Common [facility] blood pressure diastolic 2022-05-23 10:20:00 73 mm[Hg] Common [facility] height 2022-05-23 10:40:00 61.5 [in_i] Comm on [facility] weight 2022-05-23 10:40:00 137.7 [lb_av] Co mmon [facility] temperature 2022-05-23 10:40:00 97.3 [degF] Com [facility] bmi 2022-05-23 10:40:00 25.59 kg/m2 Comm on [facility] oximetry 2022-05-23 10:40:00 99 % Commo n [facility] respiratory rate 2022-05-23 10:40:00 18 /min Common [facility] [place] blood pressure systolic 2022-05-23 10:40:00 122 mm[Hg] Common [facility] blood pressure diastolic 2022-05-23 10:40:00 73 mm[Hg] [facility] Height 2022-02-11 18:12:00 157.48 CM Weight 2022-02-11 18:12:00 61.96 KG height 2022-02-08 09:20:00 61.5 [in_i] Comm on [facility] weight 2022-02-08 09:20:00 135.8 [lb_av] Co on [facility] temperature 2022-02-08 09:20:00 98.1 [degF] Com [facility] bmi 2022-02-08 09:20:00 25.24 kg/m2 Comm on [facility] [place] oximetry 2022-02-08 09:20:00 98 % Commo n [facility] respiratory rate 2022-02-08 09:20:00 18 /min Common [facility] blood pressure systolic 2022-02-08 09:20:00 132 mm[Hg] [facility] blood pressure diastolic 2022-02-08 09:20:00 74 mm[Hg] Common [facility] height 2021-11-29 11:30:00 61.5 [in_i] Comm on [facility] weight 2021-11-29 11:30:00 135 [lb_av] Comm on [facility] temperature 2021-11-29 11:30:00 98.1 [degF] Com mon [facility] bmi 2021-11-29 11:30:00 25.09 kg/m2 Comm on [facility] oximetry 2021-11-29 11:30:00 96 % Commo n [facility] [place] respiratory rate 2021-11-29 11:30:00 16 /min Common [facility] [place] blood pressure systolic 2021-11-29 11:30:00 134 mm[Hg] Common [facility] blood pressure diastolic 2021-11-29 11:30:00 84 mm[Hg] [facility] height 2021-07-20 10:40:00 62 [in_i] Commo n [facility] weight 2021-07-20 10:40:00 141.5 [lb_av] Co mmon [facility] bmi 2021-07-20 10:40:00 25.88 kg/m2 Comm on [facility] oximetry 2021-07-20 10:40:00 97 % Commo n [facility] respiratory rate 2021-07-20 10:40:00 17 /min [facility] blood pressure systolic 2021-07-20 10:40:00 119 mm[Hg] Common [facility] blood pressure diastolic 2021-07-20 10:40:00 71 mm[Hg] Common [facility] height 2021-06-22 09:00:00 62 [in_i] Commo n [facility] weight 2021-06-22 09:00:00 142.4 [lb_av] Co mmon [facility] temperature 2021-06-22 09:00:00 98.2 [degF] Com [facility] bmi 2021-06-22 09:00:00 26.04 kg/m2 Comm on [facility] oximetry 2021-06-22 09:00:00 100 % Commo n [facility] respiratory rate 2021-06-22 09:00:00 18 /min Common [facility] blood pressure systolic 2021-06-22 09:00:00 133 mm[Hg] Common [facility] blood pressure diastolic 2021-06-22 09:00:00 76 mm[Hg] Common [facility] height 2021-06-01 11:30:00 62 [in_i] Commo n [facility] weight 2021-06-01 11:30:00 140.6 [lb_av] Co mmon [facility] temperature 2021-06-01 11:30:00 98.4 [degF] Com mon [facility] bmi 2021-06-01 11:30:00 25.71 kg/m2 Comm on [facility] oximetry 2021-06-01 11:30:00 99 % Commo n [facility] respiratory rate 2021-06-01 11:30:00 18 /min [facility] blood pressure systolic 2021-06-01 11:30:00 138 mm[Hg] Common [facility] blood pressure diastolic 2021-06-01 11:30:00 74 mm[Hg] Common [facility] height 2021-05-11 14:50:00 62 [in_i] Commo n [facility] weight 2021-05-11 14:50:00 138.4 [lb_av] Co mmon [facility] temperature 2021-05-11 14:50:00 98.2 [degF] Com mon [facility] bmi 2021-05-11 14:50:00 25.31 kg/m2 Comm on [facility] oximetry 2021-05-11 14:50:00 99 % Commo n [facility] respiratory rate 2021-05-11 14:50:00 18 /min [facility] blood pressure systolic 2021-05-11 14:50:00 158 mm[Hg] [facility] blood pressure diastolic 2021-05-11 14:50:00 71 mm[Hg] [facility] height 2021-02-22 14:10:00 62 [in_i] Commo n [facility] weight 2021-02-22 14:10:00 142.3 [lb_av] Co mmon [facility] temperature 2021-02-22 14:10:00 98.3 [degF] Com mon [facility] bmi 2021-02-22 14:10:00 26.02 kg/m2 Comm on [facility] oximetry 2021-02-22 14:10:00 97 % Commo n [facility] respiratory rate 2021-02-22 14:10:00 17 /min [facility] blood pressure systolic 2021-02-22 14:10:00 132 mm[Hg] [facility] blood pressure diastolic 2021-02-22 14:10:00 70 mm[Hg] [facility] Weight Measured 2023-11-01 11:22:00 135.00 pounds [facility] Me[facility] Height Measured 2023-11-01 11:22:00 62.00 inches Ellis Meade Body Temperature 2023-11-01 11:22:00 98.20 degrees Ellis Ngoc Meade Heart Rate 2023-11-01 11:22:00 76.00 /min Jigna en F Deshaun Respiratory Rate 2023-11-01 11:22:00 20.00 /min Ellis F Deshaun BP Systolic 2023-11-01 11:22:00 130 mm[Hg] Step hen F Deshaun BP Diastolic 2023-11-01 11:22:00 90 mm[Hg] Tripp phen F Deshaun BP Systolic 2022-12-19 08:42:00 131 mm[Hg] Step hen F Deshaun BP Diastolic 2022-12-19 08:42:00 82 mm[Hg] Tripp phen F Deshaun Weight Measured 2022-12-19 08:42:00 141.40 pounds Ellis Meade Height Measured 2022-12-19 08:42:00 62.00 inches Ellis F Deshaun Body Temperature 2022-12-19 08:42:00 98.20 degrees Ellis F Deshaun Heart Rate 2022-12-19 08:42:00 67.00 /min Jigna en F Deshaun Respiratory Rate 2022-12-19 08:42:00 19.00 /min Ellis F Deshaun BP Systolic 2022-12-18 14:16:00 135 mm[Hg] Step hen F Deshaun BP Diastolic 2022-12-18 14:16:00 83 mm[Hg] Tripp phen F Deshaun Weight Measured 2022-12-18 14:16:00 140.40 pounds Ellis F Deshaun Height Measured 2022-12-18 14:16:00 62.00 inches Ellis F Deshaun Body Temperature 2022-12-18 14:16:00 98.20 degrees Ellis F Deshaun Heart Rate 2022-12-18 14:16:00 83.00 /min Jigna en F Deshaun Respiratory Rate 2022-12-18 14:16:00 17.00 /min Ellis F Deshaun BP Systolic 2022-12-17 15:01:00 147 mm[Hg] Step hen F Deshaun BP Diastolic 2022-12-17 15:01:00 97 mm[Hg] Tripp phen F Deshaun Weight Measured 2022-12-17 15:01:00 140.80 pounds Ellis F Deshaun Height Measured 2022-12-17 15:01:00 62.00 inches Ellis F Deshaun Body Temperature 2022-12-17 15:01:00 98.40 degrees Ellis F Deshaun Heart Rate 2022-12-17 15:01:00 67.00 /min Jigna en F Deshaun Respiratory Rate 2022-12-17 15:01:00 16.00 /min Ellis F Deshaun BP Systolic 2022-12-10 09:45:00 132 mm[Hg] Step hen F Deshaun BP Diastolic 2022-12-10 09:45:00 84 mm[Hg] Tripp phen F Deshaun Weight Measured 2022-12-10 09:45:00 140.20 pounds Ellis F Deshaun Height Measured 2022-12-10 09:45:00 62.00 inches Ellis F Deshaun Body Temperature 2022-12-10 09:45:00 98.20 degrees Ellis F Deshaun Heart Rate 2022-12-10 09:45:00 67.00 /min Jigna en F Deshaun Respiratory Rate 2022-12-10 09:45:00 19.00 /min Ellis F Deshaun Pulse Rate 2021-05-06 23:37:00 67 /min [facility] (LUF/RODRICK/SA) Respiratory Rate 2021-05-06 23:37:00 22 /min [facility] (LUF/RODRICK/SA) O2% BldC Oximetry 2021-05-06 23:37:00 97 % [facility] (LUF/RODRICK/SA) BP Systolic 2021-05-06 23:37:00 159 mm[Hg] [facility] (LUF/RODRICK/SA) BP Diastolic 2021-05-06 23:37:00 89 mm[Hg] [facility] (LUF/RODRICK/SA) Heart Rate 2021-05-06 23:16:00 61 /min [facility] (LUF/RODRICK/SA) BP Systolic 2017-07-01 16:22:00 149 mm[Hg] Step hen F Deshaun BP Diastolic 2017-07-01 16:22:00 106 mm[Hg] Tripp phen F Deshaun Weight Measured 2017-07-01 16:22:00 136.60 pounds Ellis F Deshaun Height Measured 2017-07-01 16:22:00 62.00 inches Ellis F Deshaun Body Temperature 2017-07-01 16:22:00 98.80 degrees Ellis F Deshaun Heart Rate 2017-07-01 16:22:00 92.00 /min Jigna en F Deshaun Respiratory Rate 2017-07-01 16:22:00 Ellis F Desahun BP Systolic 2017-06-25 17:18:00 123 mm[Hg] Step hen F Deshaun BP Diastolic 2017-06-25 17:18:00 82 mm[Hg] Tripp phen F Deshaun Weight Measured 2017-06-25 17:18:00 138.20 pounds Ellis F Deshaun Height Measured 2017-06-25 17:18:00 62.00 inches Ellis F Deshaun Body Temperature 2017-06-25 17:18:00 98.10 degrees Ellis F Deshaun Heart Rate 2017-06-25 17:18:00 73.00 /min Jigna en F Deshaun Respiratory Rate 2017-06-25 17:18:00 Ellis F Deshaun BP Systolic 2017-05-08 09:36:00 153 mm[Hg] Step hen F Deshaun BP Diastolic 2017-05-08 09:36:00 101 mm[Hg] Tripp phen F Deshaun Weight Measured 2017-05-08 09:36:00 136.00 pounds Ellis F Deshaun Height Measured 2017-05-08 09:36:00 62.00 inches Ellis F Deshaun Body Temperature 2017-05-08 09:36:00 98.30 degrees Ellis F Deshaun Heart Rate 2017-05-08 09:36:00 78.00 /min Jigna en F Deshaun Respiratory Rate 2017-05-08 09:36:00 22.00 /min Ellis F Deshaun BP Systolic 2017-05-02 11:56:00 133 mm[Hg] Step hen F Deshaun BP Diastolic 2017-05-02 11:56:00 83 mm[Hg] Tripp phen F Deshaun Weight Measured 2017-05-02 11:56:00 135.40 pounds Ellis F Deshaun Height Measured 2017-05-02 11:56:00 62.00 inches Ellis F Deshaun Body Temperature 2017-05-02 11:56:00 98.40 degrees Ellis F Deshaun Heart Rate 2017-05-02 11:56:00 67.00 /min Jigna en F Deshaun Respiratory Rate 2017-05-02 11:56:00 67.00 /min Ellis F Deshaun Procedures Procedure Date / Time Performed Performing Clinicia n Source Hysterectomy 2023-03-18 00:00:00 [facility] En[facility] Start Date/Time End Date/Time Encounter Type Admission Type Attending [facility] Care Facility Care Department Encounter ID Source 2024-03-02 10:30:00 [facility] [id number] [facility] 2022-05-24 11:43:00 [facility] [id number] [facility] 2022-05-22 07:40:00 [facility] [id number] [facility] 2021-06-22 08:42:02 Outpatient Ortiz, Will STLMLC STLMLC [id number] [facility] 2021-05-24 14:35:16 Outpatient Ortiz, Will STLMLC STLMLC [id number] [facility] 2021-05-24 14:33:18 Outpatient Ortiz, Will STLMLC STLMLC [id number] [facility] 2021-05-24 13:54:35 Outpatient Ortiz, Will STLMLC STLMLC [id number] [facility] 2021-05-24 13:54:11 Outpatient Ortiz, Will STLMLC STLMLC [id number] [facility] 2021-05-24 12:47:28 Outpatient Ortiz, Will STLMLC STLMLC [id number] [facility] 2021-05-24 12:46:32 Outpatient Ortiz, Will STLMLC STLMLC [id number] [facility] 2021-05-24 12:46:12 Outpatient Ortiz, Will STLMLC STLMLC [id number] [facility] 2021-05-24 12:39:53 Outpatient Ortiz, Will STLMLC STLMLC [id number] [facility] 2021-05-24 12:24:40 Outpatient Ortiz, Will STLMLC STLMLC [id number] [facility] 2021-05-24 12:24:20 Outpatient Ortiz, Will STLMLC STLMLC [id number] [facility] 2021-05-24 11:55:58 Outpatient Ortiz, Will STLMLC STLMLC [id number] [facility] 2021-05-24 11:22:01 Outpatient Ortiz, Will STLMLC STLMLC [id number] [facility] 2024-05-11 00:00:00 2024-05-11 00:00:00 (TEL) STLMLC STLMLC [id number] [facility] 2024-03-23 00:00:00 2024-03-23 00:00:00 OFFICE VISIT ESTAB PT LEVEL 4 STLMLC STLMLC [id number] [facility] 2024-03-02 00:00:00 2024-03-02 00:00:00 (TEL) STLMLC STLMLC [id number] [facility] 2024-02-27 00:00:00 2024-02-27 00:00:00 (TEL) STLMLC STLMLC [id number] [facility] 2023-12-27 00:00:00 2023-12-27 00:00:00 (TEL) STLMLC STLMLC [id number] [facility] 2023-11-01 11:19:05 2023-11-01 11:19:05 Outpatient SFA SFA [id number] [facility] 2023-11-01 00:00:00 2023-11-01 00:00:00 Outpatient Visit SFA [id number] [facility] Me[facility] 2023-10-22 00:00:00 2023-10-22 00:00:00 (TEL) STLMLC STLMLC [id number] [facility] 2023-09-25 00:00:00 2023-09-25 00:00:00 Selin Macias, MANAGER NEONATAL: [address], [place] [address], [place] [address] , Ph. [facility] - GC_GCBZW_Anna Arreguin* [id number] [facility] 2023-08-06 00:00:00 2023-08-06 00:00:00 OFFICE VISIT ESTAB PT LEVEL 4 STLMLC STLMLC [id number] [facility] 2023-07-24 00:00:00 2023-07-24 00:00:00 RED Mendoza: [address], [address], [place] [address] , Ph. GC_GCBZW_Ka diyala_S PRIV [facility] - GC_GCBZW_Anna Arreguin* [id number] [facility] 2023-07-05 00:00:00 2023-07-05 00:00:00 Outpatient GC_GCBZW_Ka diyala_S PRIV PRIV [id number] [facility] 2023-04-03 00:00:00 2023-04-03 00:00:00 OFFICE VISIT ESTAB PT LEVEL 4 STLMLC STLC [id number] [facility] 2023-04-01 00:00:00 2023-04-01 00:00:00 [facility] [id number] 2023-03-18 05:32:00 2023-03-19 13:00:00 Inpatient Augustus Harris [facility] MEDI.01 [id number] [facility] 2023-03-14 00:00:00 2023-03-14 00:00:00 Outpatient GC_GCBZW_Ka diyala_S PRIV PRIV [id number] [facility] 2023-03-14 00:00:00 2023-03-14 00:00:00 Outpatient GC_GCBZW_Ka diyala_S PRIV PRIV [id number] [facility] 2023-03-14 00:00:00 2023-03-14 00:00:00 Outpatient GC_GCBZW_Ka diyala_S PRIV PRIV [id number] [facility] 2023-03-06 00:00:00 2023-03-06 00:00:00 Outpatient GC_GCBZW_Ka diyala_S PRIV PRIV [id number] [facility] 2023-03-06 00:00:00 2023-03-06 00:00:00 Outpatient GC_GCBZW_Ka diyala_S PRIV PRIV [id number] [facility] 2023-03-04 00:00:00 2023-03-04 00:00:00 (TEL) STLMLC STLC [id number] [facility] 2023-03-04 00:00:00 2023-03-04 00:00:00 [facility]TEL[id number] 2023-02-15 00:00:00 2023-02-15 00:00:00 Outpatient GC_GCBZW_Ka diyala_S PRIV PRIV [id number] [facility] 2023-01-18 00:00:00 2023-01-18 00:00:00 Outpatient GC_GCBZW_Ka diyala_S PRIV PRIV [id number] [facility] 2023-01-18 00:00:00 2023-01-18 00:00:00 Outpatient GC_GCBZW_Ka diyala_S PRIV PRIV [id number] [facility] 2022-12-21 00:00:00 2022-12-21 00:00:00 Outpatient GC_GCBZW_Ka diyala_S PRIV PRIV [id number] [facility] 2022-12-19 08:34:02 2022-12-19 08:34:02 Outpatient SFA SFA 08 Ellis Grossman Deshaun 2022-12-18 14:12:20 2022-12-18 14:12:20 Outpatient SFA SFA [id number] Ellis Meade 2022-12-17 14:45:07 2022-12-17 14:45:07 Outpatient SFA SFA 08 Ellis Meade 2022-12-12 00:00:00 2022-12-12 00:00:00 Outpatient GC_GCBZW_Ka diyala_S PRIV PRIV [id number] [facility] 2022-12-12 00:00:00 2022-12-12 00:00:00 (TEL) STLMLC STLMLC [id number] [facility] 2022-12-10 09:39:00 2022-12-10 09:39:00 Outpatient SFA SFA [id number] Ellis Meade 2022-11-23 00:00:00 2022-11-23 00:00:00 Outpatient GC_GCBZW_Ka diyala_S PRIV PRIV [id number] [facility] 2022-11-23 00:00:00 2022-11-23 00:00:00 Outpatient GC_GCBZW_Ka diyala_S PRIV PRIV [id number] [facility] 2022-11-23 00:00:00 2022-11-23 00:00:00 Outpatient GC_GCBZW_Ka diyala_S PRIV PRIV [id number] [facility] 2022-11-20 00:00:00 2022-11-20 00:00:00 (TEL) STLMLC STLMLC [id number] [facility] 2022-11-19 00:00:00 2022-11-19 00:00:00 Outpatient GC_GCBZW_Ka diyala_S PRIV PRIV [id number] [facility] 2022-11-15 00:00:00 2022-11-15 00:00:00 (TEL) STLMLC STLMLC [id number] [facility] 2022-11-12 00:00:00 2022-11-12 00:00:00 (TEL) STLMLC STLMLC [id number] [facility] 2022-08-22 00:00:00 2022-08-22 00:00:00 OFFICE VISIT ESTAB PT LEVEL 4 STLMLC STLMLC [id number] [facility] 2022-08-16 00:00:00 2022-08-16 00:00:00 (TEL) STLMLC STLMLC [id number] [facility] 2022-08-16 00:00:00 2022-08-16 00:00:00 (TEL) STLMLC STLMLC [id number] [facility] 2022-07-12 00:00:00 2022-07-12 00:00:00 (TEL) STLMLC STLMLC [id number] [facility] 2022-07-09 00:00:00 2022-07-09 00:00:00 OFFICE VISIT ESTAB PT LEVEL 3 STLMLC STLMLC [id number] [facility] 2022-07-09 00:00:00 2022-07-09 00:00:00 (TEL) STLMLC STLMLC [id number] [facility] 2022-05-23 00:00:00 2022-05-23 00:00:00 OFFICE VISIT ESTAB PT LEVEL 4 STLMLC STLMLC [id number] [facility] 2022-05-23 00:00:00 2022-05-23 00:00:00 (TEL) STLMLC STLMLC [id number] [facility] 2022-05-23 00:00:00 2022-05-23 00:00:00 SUB ANNUAL [facility] WELLNESS VISIT STLMLC STLMLC [id number] [facility] 2022-05-02 00:00:00 2022-05-02 00:00:00 (TEL) STLMLC STLMLC [id number] [facility] 2022-02-08 23:45:00 2022-02-15 19:42:00 Inpatient [facility] [id number] [facility] 2022-02-08 00:00:00 2022-02-08 00:00:00 OFFICE VISIT ESTAB PT LEVEL 5 STLMLC STLMLC [id number] [facility] 2022-02-07 00:00:00 2022-02-07 00:00:00 (TEL) STLMLC STLMLC [id number] [facility] 2022-01-25 00:00:00 2022-01-25 00:00:00 (TEL) STLMLC STLMLC [id number] [facility] 2022-01-09 00:00:00 2022-01-09 00:00:00 (TEL) STLMLC STLMLC [id number] [facility] 2021-12-26 00:00:00 2021-12-26 00:00:00 (TEL) STLMLC STLMLC [id number] [facility] 2021-11-29 00:00:00 2021-11-29 00:00:00 OFFICE VISIT ESTAB PT LEVEL 4 STLMLC STLMLC [id number] [facility] 2021-09-28 00:00:00 2021-09-28 00:00:00 (TEL) STLMLC STLMLC [id number] [facility] 2021-07-20 00:00:00 2021-07-20 00:00:00 OFFICE VISIT ESTAB PT LEVEL 4 STLMLC STLMLC [id number] [facility] 2021-06-22 00:00:00 2021-06-22 00:00:00 OFFICE VISIT ESTAB PT LEVEL 4 STLMLC STLMLC [id number] [facility] 2021-06-21 00:00:00 2021-06-21 00:00:00 (TEL) STLMLC STLMLC [id number] [facility] 2021-06-01 00:00:00 2021-06-01 00:00:00 PREV VISIT EST AGE 65 & OVER STLMLC STLMLC [id number] [facility] 2021-05-11 00:00:00 2021-05-11 00:00:00 OFFICE VISIT ESTAB PT LEVEL 4 STLMLC STLMLC [id number] [facility] 2021-05-08 00:00:00 2021-05-08 00:00:00 (TEL) STLMLC STLMLC [id number] [facility] 2021-05-06 20:21:00 2021-05-06 23:24:00 CONTUS UNS FRONT WALL THORAX INIT 1 [facility], [address] [facility] [place] [address] [facility] [id number] [facility] (LUF/LI V/SA) 2021-05-06 00:00:00 2021-05-06 00:00:00 Inpatient [facility], [address] [place] [address] [place] [address] [facility] [id number] [facility] (LUF/LI V/SA) 2021-05-06 00:00:00 2021-05-06 00:00:00 Inpatient [facility], [address] [place] [address] [place] [address] [facility] [id number] [facility] (LUF/LI V/SA) 2021-05-04 00:00:00 2021-05-04 00:00:00 (TEL) STLMLC STLMLC [id number] [facility] 2021-02-22 00:00:00 2021-02-22 00:00:00 OFFICE VISIT ESTAB PT LEVEL 4 STLMLC STLMLC [id number] [facility] 2021-02-21 00:00:00 2021-02-21 00:00:00 (TEL) STLMLC STLMLC [id number] [facility] 2021-01-25 00:00:00 2021-01-25 00:00:00 Outpatient STLMLC STLMLC [id number] [facility] 2020-11-03 00:00:00 2020-11-03 00:00:00 Outpatient STLMLC STLMLC [id number] [facility] 2020-10-05 00:00:00 2020-10-05 00:00:00 Outpatient STLMLC STLMLC [id number] [facility] 2020-10-04 00:00:00 2020-10-04 00:00:00 Outpatient STLMLC STLMLC [id number] [facility] 2020-08-22 00:00:00 2020-08-22 00:00:00 Outpatient [facility] STL[facility]C [id number] [facility] 2020-07-28 00:00:00 2020-07-28 00:00:00 Outpatient [facility] STL[facility]C [id number] [facility] 2020-07-28 00:00:00 2020-07-28 00:00:00 Outpatient [facility] ST[facility]C [id number] [facility] 2020-07-21 00:00:00 2020-07-21 00:00:00 Outpatient [facility] STL[facility]C [id number] [facility] 2020-02-04 00:00:00 2020-02-04 00:00:00 Outpatient [facility] STLMLC [id number] [facility] 2020-01-07 08:00:00 2020-01-07 08:00:[address] [facility] [id number] [facility] 2019-09-11 09:15:00 2019-09-11 09:15:[address] [facility] [facility] [id number] [facility] 2019-08-19 08:50:00 2019-08-19 08:50:00 [facility] [id number] [facility] 2019-07-16 08:08:00 2019-07-16 08:08:00 [facility] [id number] [facility] 2019-07-06 16:27:00 2019-07-06 16:27:00 [facility] [id number] [facility] 2019-07-06 08:01:00 2019-07-06 08:01:[address] [facility] [id number] [facility] 2019-07-03 10:00:00 2019-07-03 10:00:00 [facility] [id number] [facility] 2019-07-03 09:45:00 2019-07-03 09:45:[address] [facility] [address] Medicine [facility] [id number] [facility] 2019-05-04 09:15:00 2019-05-04 09:15:[address] [facility] [id number] [facility] 2019-04-21 08:45:00 2019-04-21 08:45:[address] [facility] [id number] [facility] 2019-03-04 13:26:00 2019-03-04 13:26:00 [facility] [id number] [facility] 2019-03-03 10:30:00 2019-03-03 10:30:00 [facility] [id number] [facility] 2019-02-03 13:30:00 2019-02-03 13:30:00 [facility] [id number] [facility] 2019-02-03 09:30:00 2019-02-03 09:30:00 [facility] [id number] [facility] 2018-08-27 11:43:00 2018-08-27 11:43:00 [facility] [id number] [facility] 2018-08-19 13:47:00 2018-08-19 13:47:00 [facility] [id number] [facility] 2018-07-17 08:00:00 2018-07-17 08:00:00 [facility] [id number] [facility] 2018-06-13 15:17:00 2018-06-13 15:17:00 Outpatient [facility] [id number] [facility] 2018-06-13 10:45:00 2018-06-13 10:45:00 Outpatient [facility] [id number] [facility] 2018-05-23 09:15:00 2018-05-23 09:15:00 Outpatient [facility] [id number] [facility] Results Test Description Test Time Test Comments Results Result Co mments Source measurement of post-voiding residual urine and/or bladder capacity (PROC) 2023-07-24 10:42:00* Test Item Value Reference Range Interpretation Comme nts (PVR) (test code = (PVR)) [id number] 17:30:00* Test Item Value Reference Range Interpretation Comme nts SURGICAL (test code = SR) R UN DATE: 03/26/23 [facility] PAGE 1 RUN TIME: 1730 Specimen Inquiry RUN USER: INTERFACE P ATIENT: JOSIE DUARTE LOC: ALVARO Bronson #: [id number] AGE/SX: 67/F ROOM: GABBY RE03/18/23REG DR: Augustus Dias MD : 53 BED: 1 DIS: 03/19/23 STATUS: DIS Sobia TLOC: SPEC #: 23:[facility]:[id number] RECD: 03/18/23 STATUS: SOUTung REQ #: [id number] GUILLERMINA: 03/18/[address]: Helen Wilcox MD ENTERED: 03/18/23 SP TYPE: SURGICAL OTHR DR: Ryan Ortiz MD ORDERED: [id number], ANATOMIC SPEC, SPECIMEN TRACK COPIES TO: Helen Wilcox MD [address] [place] [phone] Ryan Ortiz MD [address] [place] [address] [id number] PROCEDURES: 39230 (03/26/23) SPECIMEN TRACK (03/18/23) TISSUES: A. UTERINE CURETTINGS - UTERUS,OVARIES, BILATERAL TUBES FINAL DIAGNOSIS Uterus ( 44.8 g), fallopian tubes and ovaries, hysterectomy and bilateralsalpingo-oophorectomie s: - Cervix, chronic cervicitis, mild- Endometrium, atrophic changes- Myometrium, partial medial calcifications of few intramural large arteries- Serosa, microfocal cystic (atrophic) endometriosis Ovaries, right and left- Atrophic changes, bilaterally Fallopian tubes:- Wall, lumen and fimbriated are identified, bilaterally; focal medial calcifications of alarge wall artery and small cystic Walthard cell nest, left side. Comment: Negative for atypia/malignancy. Suggest clinical correlation. CONTINUED ON NEXT PAGE R UN DATE: 03/26/[address] [facility] Granda [place] - LAB PAGE 2 RUN TIME: 1730 Specimen Inquiry RUN USER: INTERFACE S [facility] #: 23:[facility]:[id number] PATIENT: JOSIE DUARTE #[id number] (Continued) GROSS DESCRIPTION Uterus with bilateral fallopian tubes and ovaries. Received is a uterus with attachedbilateral fallopian tubes and ovaries. The uterus measures cornu to cornu 5.2, posterioranterior 2.5 and fundus to cervix 6.8 cm. The uterus weighs 44.8 g. The cervical canalmeasures 2.5 cm in length. The endometrial cavity measures 2.3 x 1.5 cm a covered byendometrium of less than 0.2 cm. The uterine wall has a maximum thickness of 1.3 cm. Cutsections reveal a ill-defined nodular surface with microcystic spaces. No lesions areidentified. The serosal surface is smooth and glistening. The right ovary measures 2.7 x1.3 x 0.8 cm. The right fallopian tube with sterilization clamp in the mid segment measures5 cm in length and has a diameter of 0.5 cm. The left ovary measures 2.5 x 1.2 x 0.6 cm. The left fallopian tube with fimbriated end has a sterilization clamp present measuring 5cm in length and has a diameter of 0.4 cm. A1 posterior cervixA2 anterior cervixA3 posterior endomyometriumA4 anterior endomyometriumA5 posterior reflectionA6 right ovary cut surfaceA7 right fallopian tube cut surface with entire bisected fimbriated endA8 left ovary cut surfaceA9 left fallopian tube cut surface with entire bisected fimbriated end Technical tissue processing and slide preparation performed at [facility],[id number] , [place] [address] Unless gross only, the diagnosis is based upon microscopic examination.Immunohistochemistr y: This test was developed and its performance characteristicsdetermined by this laboratory. It has not been approved nor does it need approval by the USFDA. Appropriate positive and negative controls are reviewed and judged to be acceptable.This laboratory is certified under the Clinical Laboratory Improvement Amendments (CLIA-88)as qualified to perform high complexity clinical laboratory testing. MICROSCOPIC DESCRIPTION Microscopic examination is performed on all specimens and the findings areincorporated into the final diagnosis. Please see diagnosis for findings. CLINICAL INFORMATION Incomplete uterovaginal prolapse, stage II to III. --- Signed SIGNATURE ON FILE Addy Vickers 03/26/23 1960 END OF REPORT COMPREHENSIVE METABOLIC [id number] 08:41:00* Test Item Value Reference Range Interpretation Comme nts SODIUM (test code = NA) 143 mmol/L 134-147 N POTASSIUM (test code = K) 3.5 mmol/L 3.4-5.0 N CHLORIDE (test code = CL) 110 mmol/L 100-108 H CARBON DIOXIDE (test code = CO2) 26 mmol/L 21-32 N ANION GAP (test code = GAP) 7.0 GAP calc 4.0-15.0 N GLUCOSE (test code = GLU) 93 MG/DL 70-110 N BLOOD UREA NITROGEN (test code = BUN) 8 MG/DL 7-18 N GLOMERULAR FILTRATION RATE (test code = GFR) >=60 max estimate estGFR >60 The Glomerular Filtration Rate is a calculated parameterbased on serum Creatinine, patient age and sex. GFR valuesless than 60 mL/min/1.73 square meters are indicative ofChronic Kidney Disease. Values less than 15 mL/min/1.73square meters indicate Kidney failure. The calculation forGFR is based on the CKD-EPI (2020) calculation. This formulais race indifferent and is the recommended formula for GFRby the National Kidney Foundation for Adults.The GFR will not calculate if the sex is unknown or if thepatient's age is <18 years. CREATININE (test code = CREAT) 0.6 MG/DL 0.6-1.0 N TOTAL PROTEIN (test code = PROT) 6.3 G/DL 6.4-8.2 L ALBUMIN (test code = ALB) 3.1 G/DL 3.4-5.0 L GLOBULIN (test code = GLOB) 3.2 GM/dL ALBUMIN/GLOBULIN RATIO (test code = A/G) 1.0 RATIO 1.2-2.2 L CALCIUM (test code = CA) 8.8 MG/DL 8.5-10.1 N BILIRUBIN TOTAL (test code = BILT) 0.40 MG/DL 0.2-1.2 N SGOT/AST (test code = AST) 14 Unit/L 15-37 L SGPT/ALT (test code = ALT) 14 Unit/L 12-78 N ALKALINE PHOSPHATASE TOTAL (test code = ALKP) 62 Unit/L 45-117 N CBC W/AUTO [id number] 07:54:00* Test Item Value Reference Range Interpretation Comme nts WHITE BLOOD CELL (test code = WBC) 10.2 K/mm3 3.5-11.0 N RED BLOOD CELL (test code = RBC) 4.38 M/mm3 4.70-6.10 L HEMOGLOBIN (test code = HGB) 12.9 G/DL 10.4-14.9 N HEMATOCRIT (test code = HCT) 39.9 % 31.5-44.1 N MEAN CELL VOLUME (test code = MCV) 91.1 Fl 84.5-98.6 N MEAN CELL HGB (test code = MCH) 29.5 pg 27.0-34.2 N MEAN CELL HGB CONCETRATION (test code = MCHC) 32.3 G/DL 31.5-34.0 N RED CELL DISTRIBUTION WIDTH (test code = RDW) 14.0 SD 11.5-14.5 N PLATELET COUNT (test code = PLT) 209 K/mm3 150-450 N MEAN PLATELET VOLUME (test c ode = MPV) 10.40 fL 7.0-10.5 N NEUTROPHIL % (test code = NT%) 69.6 % 40-76 IMMATURE GRANULOCYTE % (test code = IG%) 0.2 % 0.0-5.0 N LYMPHOCYTE % (test code = LY%) 22.9 % 20.5-51.1 N MONOCYTE % (test code = MO%) 7.0 % 1.7-9.3 N EOSINOPHIL % (test code = EO%) 0.1 % 0.0-6.0 N BASOPHIL % (test code = BA%) 0.2 % 0.0-2.0 N NUCLEATED RBC % (test code = NRBC%) 0.0 /100WBC% 0.0-1.0 N NEUTROPHIL # (test code = NT#) 7.1 K/mm3 1.8-7.6 N IMMATURE GRANULOCYTE # (test code = IG#) 0.02 x10 3/uL 0.00-0.03 N LYMPHOCYTE # (test code = LY#) 2.3 K/mm3 0.6-3.2 N MONOCYTE # (test code = MO#) 0.7 K/mm3 0.3-1.1 N EOSINOPHIL # (test code = EO#) 0.0 K/mm3 0.0-0.4 N BASOPHIL # (test code = BA#) 0.0 K/mm3 0.0-0.1 N NUCLEATED RBC # (test code = NRBC#) 0.0 K/mm3 0.0-0.1 N - CT ABD PELVIS [id number] 20:38:00 [facility] 1955 Sex: F Name: JOSIE DUARTE [facility] : 1955 Age/S: 67 / F [address] Unit #: [id number] Loc: [place] [address] Phys: Vu,Mercy PA Acct: [id number] Dis Date: Status: ADM IN PHONE #: [phone] Exam Date: 03/18/20232014 FAX #: Reason: SEVERE ABDOMINAL PAIN S/P ARIELLE EXAMS: CPT: [id number] CT ABD PELVIS W/CONT 41600 Location code: H5 CT Abdomen and Pelvis with Contrast Indication: SEVERE ABDOMINAL PAIN S/P ARIELLE. Comparison: None. Technical factors: Axial images were obtained with contrast. Coronal and sagittal reconstruction . This exam was performed according to our departmentaldose-optimization program, which includes automated exposure control, adjustment of the mA and/or kV according to patient size and/or use of iterative reconstruction technique. Findings: Small linearatelectasis at the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 DATE:03/19/23 TIME:1050 PATIENT: JOSIE DUARTE UNIT #: [id number] ROOM/BED: [place] [id number] : [birth year] AGE: 67 SEX: F ATTEND: Augustus Dias MD ADM AUTHOR: Augustus Dias MD REPT SERVICE DT/TIME: 03/19/23 1050 * ALL edits or amendments must be made on the electronic/computer document * General Information Discharge date: 03/19/23 Discharge diagnosis: Status post hysterectomy Hypertension Hospital course: 67 yo with past medical history hypertension, incomplete uterovaginal prolapse stage II/III, stress incontinence, overactive bladder, who underwent robotic assisted total laparoscopic hysterectomy and bilateral salpingo-oophorectomy, robotic sacral colpopexy, posterior wall vaginal repair and perineorrhaphy and TVT-O sling and cystoscopy and was admitted for postoperative monitoring. Patient had a intractable abdominal pain and had a CT done which showed no acute changes except for the postoperative changes. Patient has been doing good and want to go home and is being discharged home today in a stable condition with advised to follow-up with PCP and Dr. Wilcox in 1 week Med Rec Med Rec Discharge meds: Continue taking these medications: amLODIPine (NORVASC) 2.5 MG TAB 2.5 MILLIGRAM ORAL DAILY. VENLAFAXINE (EFFEXOR) 75 MG TAB 75 MILLIGRAM ORAL TWICE DAILY. ALENDRONATE (FOSAMAX ONCE WEEKLY) 70 MG TAB 35 MILLIGRAM ORAL EVERY 7 DAYS. ASPIRIN (ASPIRIN) 81 MG TAB.CHEW 81 MILLIGRAM ORAL Q TUSE OMEGA-3 FATTY ACIDS (FISH OIL) 1,000 MG CAP 1,000 MILLIGRAM ORAL DAILY. CHOLECALCIFEROL (VITAMIN D3) (VITAMIN D3) 1,250 MCG (50,000 UNIT) CAP 5,000 UNIT ORAL DAILY. VITAMIN B COMPLEX/VIT C (NEPHRO-IDALIA) 1 MG-60 MG-300 MCG TAB 1 TABLET ORAL DAILY. Start taking the following new medications: Hydrocodone/Acetaminophen (HYDROcodone/APAP 5/325) 5 MG-325 MG TAB 1-2 TABLET ORAL EVERY 6 HOURS. as needed for PAIN not to exceed 6 per day Days = 7 Qty = 15 No Refills Objective VS/I O Last Documented: Result Date Time Pulse Ox 93 03/19 1209 B/P 119/72 03/19 1209 B/P Mean 87.4 03/19 1209 Temp 98.2 03/19 1209 Pulse 68 03/19 1209 Resp 14 03/19 1209 O2 Delivery Room air 03/19 0324 O2 Flow Rate 4 03/18 1335 24 hour I O ending at 0700: 03/19 0700 03/18 1900 Intake Total 250 Output Total 2300 Balance 250 -2300 Intake, Oral 250 Output, Urine 2300 Results Findings/Data: Laboratory Tests: 03/19 03/18 0725 1715 Chemistry Sodium (134 - 147 mmol/L) 143 Potassium (3.4 - 5.0 mmol/L) 3.5 Chloride (100 - 108 mmol/L) 110 H Carbon Dioxide (21 - 32 mmol/L) 26 Anion Gap (4.0 - 15.0 GAP calc) 7.0 BUN (7 - 18 MG/DL) 8 Creatinine (0.6 - 1.0 MG/DL) 0.6 0.7 Glomerular Filtr Rate (>60 estGFR) >=60 max estimate Glucose (70 - 110 MG/DL) 93 Calcium (8.5 - 10.1 MG/DL) 8.8 Total Bilirubin (0.2 - 1.2 MG/DL) 0.40 AST (15 - 37 Unit/L) 14 L ALT (12 - 78 Unit/L) 14 Total Alk Phosphatase (45 - 117 Unit/L) 62 Total Protein (6.4 - 8.2 G/DL) 6.3 L Albumin (3.4 - 5.0 G/DL) 3.1 L Globulin (GM/dL) 3.2 Albumin/Globulin Ratio (1.2 - 2.2 RATIO) 1.0 L Hematology WBC (3.5 - 11.0 K/mm3) 10.2 RBC (4.70 - 6.10 M/mm3) 4.38 L Hgb (10.4 - 14.9 G/DL) 12.9 Hct (31.5 - 44.1 %) 39.9 MCV (84.5 - 98.6 Fl) 91.1 MCH (27.0 - 34.2 pg) 29.5 MCHC (31.5 - 34.0 G/DL) 32.3 RDW (11.5 - 14.5 SD) 14.0 Plt Count (150 - 450 K/mm3) 209 MPV (7.0 - 10.5 fL) 10.40 Neut % (Auto) (40 - 76 %) 69.6 Lymph % (Auto) (20.5 - 51.1 %) 22.9 Cowley % (Auto) (1.7 - 9.3 %) 7.0 Eos % (Auto) (0.0 - 6.0 %) 0.1 Baso % (Auto) (0.0 - 2.0 %) 0.2 Neut # (Auto) (1.8 - 7.6 K/mm3) 7.1 Lymph # (Auto) (0.6 - 3.2 K/mm3) 2.3 Cowley # (Auto) (0.3 - 1.1 K/mm3) 0.7 Eos # (Auto) (0.0 - 0.4 K/mm3) 0.0 Baso # (Auto) (0.0 - 0.1 K/mm3) 0.0 Abs Immat Gran (auto) (0.00 - 0.03 x10 3/uL) 0.02 Immature Gran % (0.0 - 5.0 %) 0.2 Nucleated RBC % (0.0 - 1.0 /100WBC%) 0.0 03/18 03/18 1715 1702 Chemistry Sodium (134 - 147 mmol/L) 139 Potassium (3.4 - 5.0 mmol/L) 3.6 Chloride (100 - 108 mmol/L) 106 Carbon Dioxide (21 - 32 mmol/L) 22 Anion Gap (4.0 - 15.0 GAP calc) 11.0 BUN (7 - 18 MG/DL) 7 Creatinine (0.6 - 1.0 MG/DL) 0.7 Glomerular Filtr Rate (>60 estGFR) >=60 max estimate Glucose (70 - 110 MG/DL) 172 H POC Glucose (70 - 110 mg/dL) 165 H Calcium (8.5 - 10.1 MG/DL) 9.2 Total Bilirubin (0.2 - 1.2 MG/DL) 0.40 AST (15 - 37 Unit/L) 16 ALT (12 - 78 Unit/L) 17 Total Alk Phosphatase (45 - 117 Unit/L) 79 Total Protein (6.4 - 8.2 G/DL) 7.2 Albumin (3.4 - 5.0 G/DL) 3.8 Globulin (GM/dL) 3.4 Albumin/Globulin Ratio (1.2 - 2.2 RATIO) 1.1 L Lipase (114 - 286 Unit/L) 99 L Hematology WBC (3.5 - 11.0 K/mm3) 13.2 H RBC (4.70 - 6.10 M/mm3) 4.73 Hgb (10.4 - 14.9 G/DL) 14.0 Hct (31.5 - 44.1 %) 43.0 MCV (84.5 - 98.6 Fl) 90.9 MCH (27.0 - 34.2 pg) 29.6 MCHC (31.5 - 34.0 G/DL) 32.6 RDW (11.5 - 14.5 SD) 13.7 Plt Count (150 - 450 K/mm3) 240 MPV (7.0 - 10.5 fL) 10.60 H Neut % (Auto) (40 - 76 %) 90.3 H Lymph % (Auto) (20.5 - 51.1 %) 5.7 L Cowley % (Auto) (1.7 - 9.3 %) 3.5 Eos % (Auto) (0.0 - 6.0 %) 0.0 Baso % (Auto) (0.0 - 2.0 %) 0.1 Neut # (Auto) (1.8 - 7.6 K/mm3) 12.0 H Lymph # (Auto) (0.6 - 3.2 K/mm3) 0.8 Cowley # (Auto) (0.3 - 1.1 K/mm3) 0.5 Eos # (Auto) (0.0 - 0.4 K/mm3) 0.0 Baso # (Auto) (0.0 - 0.1 K/mm3) 0.0 Abs Immat Gran (auto) (0.00 - 0.03 x10 3/uL) 0.05 H Immature Gran % (0.0 - 5.0 %) 0.4 Nucleated RBC % (0.0 - 1.0 /100WBC%) 0.0 Radiology data: Recent Impressions: RADIOLOGY - XR CHEST 1 V 03/18 1715 Report Impression - Status: SIGNED Entered: 03/18/2023 1725 IMPRESSION: 1. No active disease of the heart or lungs identified. 2. Free air is noted in the upper abdomen just below the right hemidiaphragm. Impression By: Maria Del Carmen Duke M.D. CAT SCAN - CT ABD PELVIS W/CONT 03/18 2010 Report Impression - Status: SIGNED Entered: 03/18/20232040 Impression: 1. Status post hysterectomy and bilateral oopherectomy. Small fluid, edema and free air in the pelvic retroperitoneum. Small intraperitoneal free air. Large free air in the left flank wall, and subcutaneous left abdomen and pelvis. No hematoma or abscess. Impression By: Colton Lopez M.D. Free Text Obj Notes Free Text Obj Notes: Physical Exam General appearance: alert, awake, oriented HEENT : normocephalic ,Atraumatic Eyes: Eyes normal inspection. ENT: Dry mucous membranes present. Neck: Normal inspection. Neck supple. CVS: Normal heart rate and rhythm. Heart sounds normal. Respiratory: No respiratory distress. Breath sounds normal. Abdomen: Soft and nontender. Genitourinary: no bladder distention Back: Normal inspection. Skin: Skin warm. Normal skin color. No rash. Extremities: No lower extremity edema. Neuro: Oriented X 3. No motor deficit No generalized lymph adenopathy Psych normal affect Discharge Instructions PCP Discharge to: Home Health lan of Care Additional Discharge Routines: Sales Operations Lead Follow-Up Diet: Regular Activity: As Tolerated, Do not Submerge Incision, No Bending, No Carpio for 6 Wks Discharge management: greater than 30 mins Follow-up Appointments Consulting provider 1: Provider 1: Helen Wilcox MD Specialty: Gynecology Consult follow up timeframe: In 1-2 weeks at 1224 RPT #: [id number] END OF REPORT [id number] 18:[id number] [facility] [address] [place] [address] PATIENT NAME: JOSIE DUARTE ADMIT DATE: 03/18/23 ACCOUNT NO: [id number] ROOM NO: [facility] AGE: 67 REPORT TYPE: OPERATIVE REPORT SEX: F ADMITTING PHYSICIAN: Augustus Dias MD ATTENDING PHYSICIAN: Augustus Dias MD OPERATION DATE: 03/18/2023 ADDENDUM The peritoneum on the sacral promontory was picked up to the left of the midline lifting up the left mesenteric vein. Sharp incision was made on the peritoneum. Then, allowing the gas to open up the presacral space. The presacral nerves were preserved and gentle dissection was performed to reach the anterior longitudinal ligament on either side of the middle sacral vessels. Once this was identified and well dissected, then peritoneal incision was carried down between the right border of the sigmoid and the course of the ureter along the fold of the uterosacral ligament. This was then connected to the posterior dissection and ample space was made for accommodating the mesh here. The Y mesh was cut 4.5 cm on the anterior limb and a 7 cm on the posterior limb. This was brought in and anteriorly fixed to the anterior vaginal wall. The second layer of the vaginal cuff closure was done at this point, overlapping the initial closure and bringing the anterior superficial part of the deep fascia over the suture line so that they both do not overlap. This is a continuous running 2-0 V-Loc suture. Once this was done, the attachment of the anterior graft was done with 9 sutures, 3 each in 3 rows, leaving at least 1 cm of the mesh from the crotch of the Y to the apex free. Posteriorly similarly 9 sutures were placed to fix the mesh down all the way from distal to proximal and once this was laid out flat, these sutures were all done with 2-0 Vicryl on a CT3 needle. Once the mesh was flat, the sacral arm was taken and attached to the sacrum with Ethibond sutures, 2 on the left of the middle sacral vessels and 1 on the right side. Once this was safely secured, the mesh was measured and trimmed. Before it was secured, ample tensioning was done with some laxity to accommodate and the vaginal manipulator was removed. Peritoneal closure was done from the left end of the vaginal dissection from the anterior to the posterior peritoneum in a continuous running fashion and ran up all the way to the apex of the sacral dissection. Hemostatic powder was sprayed on the top of the incision where there was very minimal bleeding. After thorough irrigation and suction were performed, the trocars were removed under direct vision after the robot was undocked. Gas was desufflated. The Oscar was removed. Fascia at the umbilicus was closed with the help of the 0-Vicryl sutures tagged to the edges, tied to each other, 5-0 Monocryl to close in an interrupted fashion in all skin incisions. PATIENT NAME: JOSIE DUARTE POSTERIOR VAGINAL WALL REPAIR: Dilute vasopressin was injected, 20 mL in the posterior wall and the perineum and a anum-shaped incision over the vaginal epithelium and the perineal epithelium. A 15-blade was used. Then, the epithelial tissues were all excised. Underlying connective tissue was dissected. The perineal body defect was identified and closed with the help of [id number] 2-0 Vicryl sutures x3, then posterior wall was plicated with the help of 2-0 Vicryl and attached to the perineal body. Vaginal epithelium closure was done in a continuous running fashion with the help of 2-0 Vicryl and the perineal incision was closed in a subcutaneous and subcuticular fashion with the help of 3-0 Vicryl. Rectal exam was done and was negative. MIDURETHRAL SLING: Midurethral area was picked up with 2 Allis clamps, injected with dilute vasopressin 10 mL at the midline and on both sides. Dissection was carried after a 15-blade was used to make an incision 1 cm in the midurethral area. Dissection to create tunnels to the ipsilateral obturator space, staying underneath the fascial tissues carefully avoiding the bladder. After the obturator membrane was perforated on both sides, winged guide was placed and the ____ was passed hugging the inferior pubic ramus, externally rotated and brought out 2 cm lateral to the groin fold, and inferior to the adductor longus tendon, avoiding this to avoid groin pain. On both sides, good passes were taken. No puncture of the fornix was noted. The sling was tensioned appropriately with the help of Metzenbaum scissors underneath it and the plastic sheaths and the mesh were trimmed to flush with the skin. After the sheaths were pulled out, then the vaginal epithelial closure was done with the help of 3-0 Vicryl in a continuous running locked fashion. Lagunas was removed and a cystoscopy was performed with a 17-Namibian sheath 30-degree lens normal saline. There was excellent jets of urine from both ureteral orifices. No evidence of any trauma to the bladder, the trigone or the area above the trigone or mesh in the area of the sling and urethra as I withdrew the camera. Lagunas was replaced. The patient was recovered from anesthesia and taken to PACU in stable condition. Instrument, needle and sponge counts x3 were correct at the end of the case. The patient tolerated the procedure well. Her daughter was called later in the day. Later in the day in the recovery room, she had a panic attack and was tachycardic. After Rapid Response was called, pain control was done. The patient was breathing some oxygen, had some nausea, treated for nausea with Zofran. Toradol given for pain control as her creatinine was 0.5 and a BMP completely normal. She will be discharged home tomorrow. Her daughter was called and given an update on her status. The patient felt much better. She will be given all her home meds. She has 1-week followup with me. Home health for Lagunas care. Dictated By: Helen Wilcox MD Date Dictated: 03/18/2023 18:24:29 Date Transcribed: 03/18/2023 20:17:15 SKYLER Receipt ID: [id number] Authenticated by Helen Wilcox MD On 04/04/2023 11:43:02 AM PATIENT NAME: JOSIE DUARTE at 1143 PATIENT NAME: JOSIE DUARTE 18:16:00 [id number] [facility] [id number] [place] [id number] PATIENT NAME: JOSIE DUARTE ADMIT DATE: 03/18/23 ACCOUNT NO: [id number] ROOM NO: LPO7 AGE: 67 REPORT TYPE: OPERATIVE REPORT SEX: F ADMITTING PHYSICIAN: Augustus Dias MD ATTENDING PHYSICIAN: Augustus Dias MD OPERATION DATE: 03/18/2023 PREOPERATIVE DIAGNOSES: 1. Incomplete uterovaginal prolapse, stage II to III. 2. Stress urinary incontinence. 3. Overactive bladder. POSTOPERATIVE DIAGNOSES: 1. Stage III incomplete uterovaginal prolapse. 2. Stress urinary incontinence. 3. Overactive bladder. 4. Old endometriosis in the posterior wall and perineal body defects. PROCEDURES PERFORMED: 1. Robotic-assisted total laparoscopic hysterectomy, bilateral salpingo-oophorectomy. 2. Robotic sacral colpopexy using Upsylon Y-Mesh. 3. Posterior wall vaginal repair and perineorrhaphy. 4. Transobturator midurethral tension-free sling (TVT-O) and cystoscopy. SURGEON: Helen Wilcox MD MEASUREMENT OPERATOR: Jerod Arthur. ANESTHESIA: General endotracheal. FINDINGS: POP-Q -1, +2, -3, 4.5, moderate 7, -2, -2, -4. Old endometriosis seen on the peritoneum, the right uterosacral ligament, and lateral wall. Cystoscopy after the mesh was done on the vagina, which is the Y-Mesh as well as the sling. There was no foreign body in the bladder. Strong jets of urine from both ureteral orifices. COMPLICATIONS: No complications. ESTIMATED BLOOD LOSS: 50 mL. SPECIMENS: Uterus, bilateral tubes, and ovaries. DRAINS: Lagunas catheter. IMPLANTS: Upsylon Y-mesh and TVT-O. PATIENT NAME: JOSIE DUARTE FLUIDS: 1500. URINE OUTPUT: 200. APPROACH: Robotic and Vaginal. DISPOSITION: Home. COUNTS: Correct. INDICATIONS: The patient is a 67-year-old female after medical clearance was brought in electively to have a hysterectomy, sacral colpopexy for her vaginal prolapse repair as well as a sling for treatment of stress urinary incontinence. She was evaluated in the office with a vaginal ultrasound and endometrial biopsy to rule out any atypia or malignancy. No adnexal masses were noted. Pathology on the endometrium was normal. She underwent urodynamic testing and cystoscopy. After all the findings were discussed with the patient and offering the options of a pessary vaginal prolapse repair with uterine preservation and laparoscopic repair with removal of the uterus. The patient wanted to proceed with a hysterectomy and sacral colpopexy using the Y-Mesh, fully understanding that this is the gold standard operation as well as the operation with least recurrence in the future. She understood the complications of mesh, which although rare, could be more than what would present with the vaginal prolapse repair without the use of any mesh for prolapse repair. She consented and she was brought to the OR. After medical clearance, she was taken back to the OR. She was taken back to the OR, placed in supine position on the operating table. ____ she was alone in the preoperative area. Discussed all the procedures and complications and recovery. Her daughter was at home, taking care of her grandchildren, and not available to discuss this at the time of surgery, but the patient understood all the procedure complications. No language barrier. She was taken back to the OR. PROCEDURE IN DETAIL: After general anesthesia was given, she was placed in the dorsal lithotomy position using León stirrups. Abdomen, vulva, vagina, and perineum were prepped and draped in a sterile fashion. ChloraPrep for the abdomen and Betadine for the rest. Arms tucked by the side, positioning checked, SCDs started. A 2 grams of Ancef were given. Timeout was done and procedure started after she was draped in a sterile fashion. Speculum placed to expose the cervix. Anterior lip was grasped with single tooth tenaculum and dilated to 16-Namibian. A medium vaginal manipulator was introduced into place. Lagunas was placed to drain the bladder and attached to a drainage bag over her left thigh. This area was draped. A 1 cm supraumbilical incision in the midline was made with a scalpel using open laparoscopy technique. Fascia was incised, tagged with 0 Vicryl sutures. Peritoneum entered bluntly. S retractors were placed and Oscar introduced. After adequate insufflation, site of entry was checked and was unremarkable. Two each on the right and left side of the body wall, three 8 mm and one 10 mm port incisions were made with a scalpel after injecting with Marcaine at the fascia and skin. Good triangulation on the left and right for both of the incisions with umbilical camera port. Left upper quadrant AirSeal port was used. After inserting all the ports under direct vision, the camera was docked from the patient's left side in an oblique angle. Camera arm was attached. PATIENT NAME: JOSIE DUARTE After the patient was placed in 24 degrees of Trendelenburg, positioning was adequately checked, padding was appropriate as well. Targeting was complete and all the instruments were inserted under direct vision. Arms attached to the robot before the instruments were inserted. Bipolar fenestrated grasper through the arm #1, monopolar scissors through the arm #3, and cardia forceps through the arm #4 were placed and extended into the pelvic cavity under direct vision. After the trocars were burped, I went over to the console. The round ligament on the left side was taken down with the help of monopolar bipolar fenestrated grasper and scissors. Then, opening up the mesosalpinx towards the IP ligament parallel to it and the anterior peritoneum was opened up. Then, posterior peritoneum was incised between the ureter and the IP ligament after identifying the course of the ureter. The pedicle was isolated. This was cauterized and cut with bipolar and monopolar. Then, the posterior peritoneum taken down, dissecting it away from the broad ligament all the way down to the uterosacral and the cup. On the way, the ureter was dissected laterally and identified the entire tunnel. Anteriorly, the anterior peritoneum was opened up. Broad ligament was taken down to skeletonize the uterine vessels. Anterior peritoneum opened up to dissect the bladder inferiorly. Once this was done, the vessels were isolated, cauterized at the level of the internal os and revealing the internal os in the cup. They were cauterized as well and cut with pedicles. Cardinal ligaments were also taken down in the similar fashion. This entire operation was repeated on the right side after adequate retraction of the bowel into the upper abdomen. Round ligament, mesosalpinx, anterior leaf of the peritoneum, posterior leaf of the peritoneum between the ureter and IP were all isolated. The IP pedicle was cauterized and cut. Then, posterior peritoneum dissected to the cup, broad ligament taken down to isolate the vessels. Anterior peritoneum connected to finish the bladder flap and dissect the bladder inferiorly at least 1 cm. Then, vessels were cauterized and cut and the cardinal ligaments as well with bipolar graspers as well as scissors. Then, the pedicle was freed up slightly laterally and monopolar single obdulio of the scissors was used to perform a circumferential colpotomy with monopolar energy. Once this was done, the specimen was pulled out through the vagina. Vaginal occluder was placed. Vaginal cuff closure was performed through angle sutures with one Vicryl simple stitches, then a 2-0 V-Loc was used to drain do a continuous running suture from the right to the left including the entire posterior wall and peritoneum anteriorly. Most of the anterior vaginal wall leaving a slight amount of fascia that is most proximal to the bladder. Once there was excellent closure and the tail was buried with 2-0 extra sutures, then I proceeded with a sacral colpopexy. DISSECTION OF THE BLADDER: The bladder was picked up with the cardia and the fenestrated bipolar graspers and taken down in a sharp fashion with occasional monopolar cautery gently. For hemostasis, a 4.5 cm was taken to the trigone. Then, the appropriate dissection was carried laterally as well. Then, once this was measured and was hemostatic, posterior dissection was done. POSTERIOR DISSECTION: The peritoneum was picked up above the level of the PATIENT NAME: JOSIE DUARTE rectal reflection and incised. Then, the dissection was carried through the areolar tissue, staying closer to the vaginal wall, then the rectum, and this was taken down from one uterosacral to the other in a horizontal fashion. Once the posterior vaginal wall was exposed, then this was dissected down 7 cm from the vaginal cuff down to the reflection of the sigmoid. Once this was done and it was opened up widely laterally at least to include a 4 cm or 5 cm. Then, attention was directed to the sacral dissection. SACRAL DISSECTION: Peritoneum picked up DICTATION ENDS HERE Dictated By: Helen Wilcox MD Date Dictated: 03/18/2023 18:16:57 Date Transcribed: 03/18/2023 20:59:08 [id number] Receipt ID: [id number] Authenticated by Helen Wilcox MD On 04/04/2023 11:43:05 AM at 1143 PATIENT NAME: JOSIE DUARTE 18:00:00 [facility] Hospitalist History Physical REPORT#:[id number] REPORT STATUS: Signed REPORT INITIALIZATION DATE:03/18/23 TIME:1800 PATIENT: JOSIE DUARTE UNIT #: [id number] ROOM/BED: [place] [id number] : 53 AGE: 67 SEX: F ATTEND: Augustus Dias MD ADM AUTHOR: Augustus Dias MD REPT SERVICE DT/TIME: 03/18/23 1800 * ALL edits or amendments must be made on the electronic/computer document * History of Present Illness HPI Chief complaint: S/p Total Hysterectomy HPI: 67 yo with past medical history hypertension, incomplete uterovaginal prolapse stage II/III, stress incontinence, overactive bladder, who underwent robotic assisted total laparoscopic hysterectomy and bilateral salpingo-oophorectomy, robotic sacral colpopexy, posterior wall vaginal repair and perineorrhaphy and TVT-O sling and cystoscopy and was admitted for postoperative monitoring. Complains of nausea Denies any fever or chills Still have pain in the abdomen History Past Medical Surgical Hx Additional medical history: Hypertension Additional surgical history: Hysterectomy Family History Family history: Reports: Hypertension. Social History Smoking status for patients 13 years old or older: Never Smoker Medication/Allergy-Vaccine Hx Medications: Home Medications: amLODIPine (NORVASC) 2.5 MG PO DAILY VENLAFAXINE (EFFEXOR) 75 MG PO BID ALENDRONATE (FOSAMAX ONCE WEEKLY) 35 MG PO Q7D ASPIRIN 81 MG PO Q TUSE OMEGA-3 FATTY ACIDS (FISH OIL) 1,000 MG PO DAILY CHOLECALCIFEROL (VITAMIN D3) (VITAMIN D3) 5,000 UNIT PO DAILY VITAMIN B COMPLEX/VIT C (NEPHRO-IDALIA) 1 TAB PO DAILY Hydrocodone/Acetaminophen (HYDROcodone/APAP 5/325) 1-2 TAB PO Q6H PRN PAIN MDD 6 Allergies: Coded Allergies: No Known Allergies (03/06/23) Review of Systems Free Text ROS Notes Free Text ROS Notes: Constitutional: Reports: generalized weakness. Skin: Denies: rash. Allergy/Immun: Denies: rhinorrhea, sneezing. Eyes: Denies: visual loss/blurred. ENT: Denies: earache, nasal congestion. Respiratory: Denies: non productive cough. Cardiovascular: Denies: chest pain, palpitations. GI: Denies: diarrhea, nausea. : Denies: dysuria. Musculoskeletal: Reports: arthritis. Denies: extremity pain. Heme: Denies: bleeding. Endocrine: Denies: polydipsia. Neuro: Reports: dizziness, gait problem, lightheaded, spinning sensation. Psych: Reports: anxiety. All systems rev neg: except as noted OBJECTIVE VS/I O: Vital Signs Date Temp Pulse Resp B/P B/P Mean Pulse Ox FiO2 03/18 97.3-98.3 55-99 14- 121-171/64-96 99.2-119.8 93-100 Last Documented: Result Date Time Pulse Ox 100 03/18 1711 B/P 170/95 03/18 1711 B/P Mean 119.8 03/18 1711 Pulse 92 03/18 1711 Resp 18 03/18 1711 O2 Delivery Room air 03/18 1514 Temp 97.9 03/18 1514 O2 Flow Rate 4 03/18 1335 24 hour I O ending at 0700: 03/18 0700 03/17 1900 Intake Total Output Total Balance Patient 135 lb Weight Weight Stated/Reported Measurement Method Patient Weight and BMI Weight (kg): 61.364 BMI: 24.7 Medications: Active Meds + DC'd Last 24 Hrs Docusate Sodium (COLACE) 100 MG BID PO Pregabalin (LYRICA) 75 MG BID PO Acetaminophen (TYLENOL EXTRA STRENGTH) 1,000 MG PREOP ONCE PO (CKD) Celecoxib (CeleBREX) 200 MG PREOP ONCE PO (CKD) Gabapentin (NEURONTIN) 200 MG PREOP ONCE PO (CKD) Ketorolac Tromethamine (TORADOL 30 MG) 30 MG ONCE IV (PEND) Morphine Sulfate (morphine Sulfate) 4 MG ONCE ONE IV (DC) Acetaminophen (TYLENOL) 650 MG Q4H PRN PRN PO Ibuprofen (IBUPROFEN) 600 MG Q6H PRN PRN PO Morphine Sulfate (morphine Sulfate) 2 MG Q4H PRN PRN IV Glycopyrrolate (RobinuL) 0 .STK-MED ONE .ROUTE (DC) Bupivacaine HCl (MARCAINE 0.5%) 0 .STK-MED ONE .ROUTE (DC) Cefazolin Sodium (KEFZOL) 0 .STK-MED ONE .ROUTE (DC) Lidocaine/Epinephrine (Xylocaine 1%-Epi 1:100,000) 0 .STK-MED ONE .ROUTE (DC) Glycopyrrolate (RobinuL) 0 .STK-MED ONE .ROUTE (DC) Neostigmine Methylsulfate (PROSTIGMIN 3MG/3ML) 0 .STK-MED ONE .ROUTE (DC ) Fentanyl Citrate (SUBLIMAZE) 0 .STK-MED ONE .ROUTE (DC) Lidocaine HCl (XYLOCAINE) 0 .STK-MED ONE .ROUTE (DC) Cefazolin Sodium (KEFZOL) 0 .STK-MED ONE .ROUTE (DC) Rocuronium Buhler (ZEMURON) 0 .STK-MED ONE .ROUTE (DC) Sevoflurane (ULTANE) 0 .STK-MED ONE .ROUTE (DC) Dexamethasone Sodium Phosphate (DECADRON) 0 .STK-MED ONE .ROUTE (DC) Hydromorphone HCl (DILAUDID) 0 .STK-MED ONE .ROUTE (DC) Ondansetron HCl (ZOFRAN) 0 .STK-MED ONE .ROUTE (DC) Phenylephrine HCl (Biorphen) 0 .STK-MED ONE .ROUTE (DC) Propofol (DIPRIVAN) 20 ML .STK-MED ONE IV (DC) Rocuronium Buhler (ZEMURON) 0 .STK-MED ONE .ROUTE (DC) Acetaminophen (TYLENOL EXTRA STRENGTH) 1,000 MG Q6H PO (DC) Hydrocodone Bitart/Acetaminophen (NORCO 5/325) 1 TAB PACU ONCE PRN PO Hydrocodone Bitart/Acetaminophen (NORCO 10/325) 1 TAB PACU ONCE PRN PO Hydromorphone HCl (DILAUDID) 0.5 MG PACU Q10MIN PRN PRN IV Insulin Human Lispro (HUMALOG) 0 PACU ONCE PRN SUBQ Labetalol HCl (TRANDATE) 5 MG PACU Q10MIN PRN PRN IV Lactated Ringer's (LACTATED RINGERS) 1,000 ML ASDIR IV Meperidine HCl (DEMEROL) 12.5 MG PACU ONCE PRN IV Ondansetron HCl (ZOFRAN) 4 MG PACU ONCE PRN IV Ondansetron HCl (ZOFRAN) 8 MG Q8H PRN PRN PO Ondansetron HCl (ZOFRAN) 8 MG Q8H PRN PRN IV Cefazolin Sodium (KEFZOL) 2 GM PREOP ASDIR IV (CKD) Scopolamine HBr (TRANSDERM-SCOP) 1.5 MG PREOP ASDIR TRANSDERM (CKD) Sterile Water (WATER FOR INJECTION) 20 ML PREOP ASDIR IV Results Findings/Data: Laboratory Tests 03/18/231714: [Embedded Image Not Available] Laboratory Tests: 03/185 1702 Chemistry POC Glucose (70 - 110 mg/dL) 165 H Hematology WBC (3.5 - 11.0 K/mm3) 13.2 H RBC (4.70 - 6.10 M/mm3) 4.73 Hgb (10.4 - 14.9 G/DL) 14.0 Hct (31.5 - 44.1 %) 43.0 MCV (84.5 - 98.6 Fl) 90.9 MCH (27.0 - 34.2 pg) 29.6 MCHC (31.5 - 34.0 G/DL) 32.6 RDW (11.5 - 14.5 SD) 13.7 Plt Count (150 - 450 K/mm3) 240 MPV (7.0 - 10.5 fL) 10.60 H Neut % (Auto) (40 - 76 %) 90.3 H Lymph % (Auto) (20.5 - 51.1 %) 5.7 L Cowley % (Auto) (1.7 - 9.3 %) 3.5 Eos % (Auto) (0.0 - 6.0 %) 0.0 Baso % (Auto) (0.0 - 2.0 %) 0.1 Neut # (Auto) (1.8 - 7.6 K/mm3) 12.0 H Lymph # (Auto) (0.6 - 3.2 K/mm3) 0.8 Cowley # (Auto) (0.3 - 1.1 K/mm3) 0.5 Eos # (Auto) (0.0 - 0.4 K/mm3) 0.0 Baso # (Auto) (0.0 - 0.1 K/mm3) 0.0 Abs Immat Gran (auto) (0.00 - 0.03 x10 3/uL) 0.05 H Immature Gran % (0.0 - 5.0 %) 0.4 Nucleated RBC % (0.0 - 1.0 /100WBC%) 0.0 Laboratory Tests 03/18/23 1715: [Embedded Image Not Available] Radiology data: Recent Impressions: RADIOLOGY - XR CHEST 1 V 03/18 1715 Report Impression - Status: SIGNED Entered: 03/18/20235 IMPRESSION: 1. No active disease of the heart or lungs identified. 2. Free air is noted in the upper abdomen just below the right hemidiaphragm. Impression By: Maria Del Carmen Duke M.D. Free Text PE Notes Free Text PE Notes: Physical Exam General appearance: alert, awake, oriented HEENT : normocephalic ,Atraumatic Eyes: Eyes normal inspection. ENT: Dry mucous membranes present. Neck: Normal inspection. Neck supple. CVS: Normal heart rate and rhythm. Heart sounds normal. Respiratory: No respiratory distress. Breath sounds normal. Abdomen: Soft and nontender. Genitourinary: no bladder distention Back: Normal inspection. Skin: Skin warm. Normal skin color. No rash. Extremities: No lower extremity edema. Neuro: Oriented X 3. No motor deficit No generalized lymph adenopathy Psych normal affect Diagnosis, Assessment Plan Free Text A P: Status post hysterectomy Pain control Appreciate help from Dr. Wilcox Had a Lagunas placed Home health was ordered by [facility] Hypertension Continue home medications and titrate as needed GI/DVT prophylaxis Advanced directive full code at 1216 RPT #: [id number] END OF REPORT [id number] 17:07:00 [facility] ([facility]) Brief Op Note REPORT#:[id number] REPORT STATUS: Signed REPORT INITIALIZATION DATE:03/18/23 TIME:1706 PATIENT: JOSIE DUARTE UNIT #: [id number] ROOM/BED: [place] [id number] : 53 AGE: 67 SEX: F ATTEND: Augustus Dias MD ADM AUTHOR: Helen Wilcox MD REPT SERVICE DT/TIME: 03/18/231706 * ALL edits or amendments must be made on the electronic/computer document * Op/Inv Proc Note - Brief Pre-procedure diagnosis: 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, JOSE ALFREDO, OAb Post-procedure diagnosis: same as pre procedure dx, old endometriosis, posterior wall and perineal body defect Procedures performed: RTLH BSO, SCP, posterior repair, Trans-obturator mid urethral sling (TVT-O), perineorrhaphy, cystoscopy Primary Surgeon: vivian Date Puller(s): jerod arthur Anesthesia: general anesthesia Findings: -1/+2/-3/4.5/mod/7/-2/-2/-4, old endo on the peritoneum Rt USL and lateral wall, cysto neg for mesh after SCp adn sling, strong jets from both UOs Complications: none Estimated blood loss in ml's: 50 Specimens removed/altered: uterus bilat tubes ovaries Drain(s): Lagunas Catheter Placed Implant(s): Upsylon Y-mesh, TVT-O Fluids: 1500 Urine output: 200 Approach: robotic and vaginal Wound class: clean/contaminated Disposition: MEDSURG Counts: Sponge count: correct Instrument count: correct Needle count: correct at 1747 RPT #: [id number] END OF REPORT [facility]
[2024-06-27] MEDS ORDERED: DIPHENHYDRAMINE 50 MG/ML VIAL ONE (09:01)
[2024-06-27] MEDS ORDERED: NA CHLORIDE 0.9% 1,000 ML ONE (09:01)
[2024-06-27] MEDS ORDERED: METOCLOPRAMIDE 10 MG/2mL INJ ONE (09:01)
[2024-06-27] MEDS ORDERED: NA CHLORIDE 0.9% 50 ML ONE (09:02)
[2024-06-27 09:07] LABS: Absolute Lymphocytes (CBC) 1.7 K/uL (0.7-4.9); Absolute Neutrophil 5.3 K/uL (1.8-8.0); Basophils % 0.4 % (0-1.3); Eosinophils % 0.5 % (0-4.4); Hematocrit 40.6 % (36.0-45.0); Hemoglobin 13.3 g/dL (12.0-15.0); Lymphocytes % 20.7 % (15.3-44.8); MCH 29.1 pg (27.0-35.0); MCHC 32.8 g/dL (32.0-36.0); MCV 88.8 fL (80-100); MPV 7.7 fL (7.6-11.3); Monocytes % 12.2 % (3.3-12.3); Neutrophils % 66.2 % (41.7-73.7); Nucleated Red Blood Cells % 0.1 % (0-0); Platelets 253 thou/uL (152-406); RBC Red Blood Cell Count 4.58 M/uL (3.86-4.86); Red Cell Distribution Width 13.9 % (12.1-15.2)
--- NOTE | 2024-06-27 09:33 | RAD REPORT ---
EXAMINATION: Head Brain Wo Cont CLINICAL INDICATION: Female, 69 years old.HEADACHE TECHNIQUE: Axial CT images from the skull base to the vertex without intravenous contrast. Coronal an d sagittal reformatted images were created from the data set. One or more of the following dose reduction techniques were used: Automated exposure control, adjustment of the mA and/or kV according to patient size, and/or iterative reconstruction. Unless otherwise specified, incidental findings do not require dedicated imaging follow-up. [id number]. COMPARISON: 02/08/22 FINDINGS: INTRACRANIAL: No acute intracranial hemorrhage. No hydrocephalus. No mass effect or midline shift. Mi ld chronic small vessel ischemic changes. VASCULATURE: No visualized abnormalities in the arteries or dural venous sinuses. SCALP/SKULL: No calvarial fracture identified. No acute soft tissue abnormality. SINUSES: The visualized paranasal sinuses are mostly clear. No significant mastoid fluid. IMPRESSION: No acute intracranial abnormality.
--- NOTE | 2024-06-27 09:40 | ER ---
Nurse's Notes [facility] Name: Josie Duarte Age: 69 yrs Sex: Female : 1955 Arrival Date: 06/27/2024 Time: 08:25 Bed 2 Private MD: Diagnosis: Headache Presentation: 06/27 08:43 Chief complaint: Patient states: Severe headache since Saturday. Coronavirus screen: ss Client denies travel out of the [place] in the last 14 days. Ebola Screen: Patient denies exposure to infectious person. Patient denies travel to an Ebola-affected area in the 21 days before illness onset. Initial Sepsis Screen: Does the patient meet any 2 criteria? No. Patient's initial sepsis screen is negative. Does the patient have a suspected source of infection? No. Patient's initial sepsis screen is negative. Risk Assessment: Do you want to hurt yourself or someone else? Patient reports no desire to harm self or others. Onset of symptoms was July 22, 2024. 08:43 Method Of Arrival: Ambulatory ss 08:43 Acuity: CARMEN 3 Triage Assessment: 08:45 General: Appears uncomfortable, Behavior is calm. Neuro: Level of Consciousness is ss awake, alert, obeys commands, Oriented to person, place, time, situation, Speech is normal. Neuro: Respiratory: Airway is patent Respiratory effort is even, unlabored, Respiratory pattern is regular, symmetrical. GI: Reports nausea. Derm: Skin is intact, is healthy with good turgor, Skin is pink, warm \T\ dry. normal. 09:00 Headache History: The patient has had previous headaches and this one is similar to iw previous episodes. Pain: Complains of pain in head Pain began 2-3 days ago. Also complains of no other associated symptoms. Historical: - Allergies: 08:45 No Known Allergies; ss - Home Meds: 08:45 amlodipine 2.5 mg tab 1 tab once daily [Active]; venlafaxine oral [Active]; ss - PMHx: 08:45 Depression; Hypertensive disorder; ss - Immunization history:: Adult Immunizations unknown. - Infectious Disease History:: Denies. - Social history:: Smoking status: unknown. Screenin:[facility] ED Fall Risk Assessment (Adult) History of falling in the last 3 months, ss including since admission No falls in past 3 months (0 pts) Confusion or Disorientation No (0 pts) Intoxicated or Sedated No (0 pts) Impaired Gait No (0 pts) Mobility Assist Device Used No (0 pt) Altered Elimination No (0 pt) Score/Fall Risk Level 0 - 2 = Low Risk Oriented to surroundings, Maintained a safe environment. Abuse screen: Denies threats or abuse. Denies injuries from another. Nutritional screening: No deficits noted. Tuberculosis screening: Never had TB. VAN Screening: Arm Drift: Patient shows no arm weakness. Visual Disturbance: No visual disturbance noted. Aphasia: No aphasia noted. Neglect: No neglect noted. Assessment: 09:25 General: Appears in no apparent distress. Behavior is calm, cooperative. Pain: iw Complains of pain in head Pain currently is 8 out of 10 on a pain scale. Neuro: Level of Consciousness is awake, alert, obeys commands, Oriented to person, place, time, situation, Moves all extremities. Neuro: Reports headache. Cardiovascular: Patient's skin is warm and dry. Respiratory: Respiratory effort is even, unlabored, Respiratory pattern is regular, symmetrical. Derm: Skin is intact, is healthy with good turgor. Musculoskeletal: Range of motion: intact in all extremities. Vital Signs: 08:43 BP 147 / 92; Pulse 71; Resp 16; Temp 98.2(O); Pulse Ox 100% on R/A; Weight 61.69 kg; ss Height 5 ft. 2 in. ; Pain 8/10; 10:06 BP 124 / 65; Pulse 61; Resp 16; Pulse Ox 97% on R/A; Pain 3/10; iw 08:43 Body Mass Index 24.87 (61.69 kg, 157.48 cm) ss 08:43 Pain Scale: Adult ss 10:06 Pain Scale: Adult iw NIH Stroke Scale Scores: 08:47 NIHSS Score: 0 ss ED Course: 08:28 Patient arrived in ED. sj2 08:42 Cesar Moreno MD is Attending Physician. ec2 08:45 Triage completed. ss 08:45 Arm band placed on right wrist. ss 08:47 Patient has correct armband on for positive identification. Placed in gown. Bed in low ss position. Call light in reach. Side rails up X 1. Pulse ox on. NIBP on. Warm blanket given. 08:50 Jf, Annel, RN is Primary Nurse. iw 09:00 Initial lab(s) drawn, by me, sent to lab. Inserted saline lock: 20 gauge in right iw antecubital area, using aseptic technique. Blood collected. Flushed with 10 mL NS. 09:17 CT Head Brain wo Cont In Process Unspecified. EDMS 10:06 No provider procedures requiring assistance completed. IV discontinued, intact, iw bleeding controlled, No redness/swelling at site. Pressure dressing applied. Administered Medications: 09:22 Drug: metoCLOPramide IVP 10 mg IVP once; over 1 to 2 minutes Route: IVP; Site: right iw antecubital; 10:06 Follow up: Response: No adverse reaction; Pain is decreased iw 09:23 Drug: NS 0.9% IV 1000 ml IV at 1 bolus Per protocol; to be given as a bolus over 60 iw minutes Route: IV; Rate: 1 bolus; Site: right antecubital; 10:30 Follow up: IV Status: Completed infusion iw 09:23 Drug: diphenhydrAMINE IVP 25 mg IVP once Route: IVP; Site: right antecubital; iw 10:07 Follow up: Response: No adverse reaction; Pain is decreased iw Medication: 09:30 VIS not applicable for this client. iw Outcome: 09:39 Discharge ordered by . ec2 10:06 Discharged to home ambulatory, iw 10:06 Condition: good 10:06 Discharge instructions given to patient, Instructed on discharge instructions, follow up and referral plans. Demonstrated understanding of instructions, follow-up care, medications, Prescriptions given X 1, 10:07 Patient left the ED. iw NIH Stroke Scale - NIH Stroke Score Date: 06/27/2024 Time: 08:47 Total Score = 0 10. Dysarthria (speech clarity - read or repeat words) - 0(Normal) 11. Extinction and Inattention (visual/tactile/auditory/spatial/personal) - 0(No abnormality) 1a. Level of Consciousness (LOC) - 0(Alert) 1b. Level of Consciousness (LOC) (Month \T\ Age) - 0(Both) 1c. LOC Commands (Open \T\ Closes Eyes/Hospitality Team Member) - 0(Both) 2. Best Gaze (Lateral Gaze Paresis) - 0(Normal) 3. Visual Field Loss - 0(No visual loss) 4. Facial Palsy - 0(Normal) 5a. Left Arm: Motor (10-second hold) - 0(No drift) 5b. Right Arm: Motor (10-second hold) - 0(No drift) 6a. Left Leg: Motor (5-second hold - always test supine) - 0(No drift) 6b. Right Leg: Motor (5-second hold - always test supine) - 0(No drift) 7. Limb Ataxia (finger/nose \T\ heel/huang - test with eyes open) - 0(Absent) 8. Sensory Loss (pinprick arms/legs/face) - 0(Normal) 9. Best Language: Aphasia (description/naming/reading) - 0(No aphasia) Initials: Signatures: Dispatcher [employer] Annel Love RN RN iw Blanchard, Shelby, RN RN ss Corral, Edwin, MD MD ec2 Flip Tamayo 2
--- NOTE | 2024-06-27 09:40 | EDPHYS ---
Physician Documentation [facility] Name: Josie Duarte Age: 69 yrs Sex: Female : 1955 Arrival Date: 06/27/2024 Time: 08:25 Bed 2 Private MD: ED Physician Cesar Moreno HPI: 06/27 08:47 This 69 yrs old Female presents to ER via Ambulatory with complaints of ec2 Headache. 08:47 Patient arrives today for evaluation of a headache. Patient reports she been ec2 experiencing 5 days of headache symptoms. Patient reports she is taking diclofenac as well as Tylenol with some improvement in symptoms. Reports she is here today because the symptoms have lasted longer than typical. Patient reports a significant history of headache syndrome. Some nausea, no vomiting, no diarrhea, no recent falls injuries or trauma. . Historical: - Allergies: 08:45 No Known Allergies; ss - Home Meds: 08:45 amlodipine 2.5 mg tab 1 tab once daily [Active]; venlafaxine oral [Active]; ss - PMHx: 08:45 Depression; Hypertensive disorder; ss - Immunization history:: Adult Immunizations unknown. - Infectious Disease History:: Denies. - Social history:: Smoking status: unknown. ROS: 08:47 Constitutional: as per hpi ec2 Exam: 08:47 Constitutional: GEN: NAD Head: atraumatic Eyes: EOMI Ears: External ears are ec2 normal. CV: regular rate LUNGS: no respiratory distress ABD: non-distended SKIN: no evidence of rashes MSK: no evidence of trauma. Neuro: Cranial nerves II through XII intact, strength intact in all 4 extremities Vital Signs: 08:43 BP 147 / 92; Pulse 71; Resp 16; Temp 98.2(O); Pulse Ox 100% on R/A; Weight 61.69 kg; ss Height 5 ft. 2 in. ; Pain 8/10; 10:06 BP 124 / 65; Pulse 61; Resp 16; Pulse Ox 97% on R/A; Pain 3/10; iw 08:43 Body Mass Index 24.87 (61.69 kg, 157.48 cm) ss 08:43 Pain Scale: Adult ss 10:06 Pain Scale: Adult iw NIH Stroke Scale Scores: 08:47 NIHSS Score: 0 ss MDM: 08:42 Medical Screening Exam initiated ec2 08:47 Data reviewed: vital signs, nurses notes. ED course: Patient arrives today for ec2 headache. Examination yields an intact neurologic exam. Will obtain CT scan of the head and treat the patient's headache. Differential diagnosis include processes such as headache syndrome, intracranial mass. Doubt brain bleed given lack of sudden onset symptom, lower suspicion for intracranial mass given lack of focal neurologic deficit. 09:37 ED course: Labs non-actionable, CT scan of the head shows no acute intracranial abnl. ec2 on reassessment. 09:39 ED course: pt reports improvement in s/s, will d/c to home, return precautions given. ec2 06/27 08:47 Order name: CBC with Diff; Complete Time: 09:37 ec2 06/27 08:47 Order name: BMP; Complete Time: 09:37 ec2 06/27 08:47 Order name: CT Head Brain wo Cont; Complete Time: 09:37 ec2 06/27 08:47 Order name: IV; Complete Time: 08:58 ec2 Administered Medications: 09:22 Drug: metoCLOPramide IVP 10 mg IVP once; over 1 to 2 minutes Route: IVP; Site: right iw antecubital; 10:06 Follow up: Response: No adverse reaction; Pain is decreased iw 09:23 Drug: NS 0.9% IV 1000 ml IV at 1 bolus Per protocol; to be given as a bolus over 60 iw minutes Route: IV; Rate: 1 bolus; Site: right antecubital; 10:30 Follow up: IV Status: Completed infusion iw 09:23 Drug: diphenhydrAMINE IVP 25 mg IVP once Route: IVP; Site: right antecubital; iw 10:07 Follow up: Response: No adverse reaction; Pain is decreased iw Disposition Summary: 06/27/24 09:39 Discharge Ordered Notes: Location: Home ec2 Condition: Stable ec2 Diagnosis - Headache ec2 Followup: ec2 - With: Private Physician - When: - Reason: Re-evaluation by your physician Discharge Instructions: - Discharge Summary Sheet ec2 - General Headache Without Cause ec2 Forms: - Medication Reconciliation Form ec2 - Antibiotic Education ec2 - Prescription Opioid Use ec2 - Patient Portal Instructions ec2 - Leadership Thank You Letter ec2 Prescriptions: - Compazine 10 mg Oral Tablet - take 1 tablet ORAL route every 8 hours As needed; 20 tablet; Refills: 0, ec2 Product Selection Permitted NIH Stroke Scale - NIH Stroke Score Date: 06/27/2024 Time: 08:47 Total Score = 0 10. Dysarthria (speech clarity - read or repeat words) - 0(Normal) 11. Extinction and Inattention (visual/tactile/auditory/spatial/personal) - 0(No abnormality) 1a. Level of Consciousness (LOC) - 0(Alert) 1b. Level of Consciousness (LOC) (Month \T\ Age) - 0(Both) 1c. LOC Commands (Open \T\ Closes Eyes/Repeat Photocomposing Machine Operator) - 0(Both) 2. Best Gaze (Lateral Gaze Paresis) - 0(Normal) 3. Visual Field Loss - 0(No visual loss) 4. Facial Palsy - 0(Normal) 5a. Left Arm: Motor (10-second hold) - 0(No drift) 5b. Right Arm: Motor (10-second hold) - 0(No drift) 6a. Left Leg: Motor (5-second hold - always test supine) - 0(No drift) 6b. Right Leg: Motor (5-second hold - always test supine) - 0(No drift) 7. Limb Ataxia (finger/nose \T\ heel/huang - test with eyes open) - 0(Absent) 8. Sensory Loss (pinprick arms/legs/face) - 0(Normal) 9. Best Language: Aphasia (description/naming/reading) - 0(No aphasia) Initials: Signatures: Dispatcher [employer] Annel Love RN RN Sandy Manning RN RN Cesar Moreno MD MD ec2
[2024-06-27 10:12] VITALS: TEMP 98.2
[2024-06-27 10:13] VITALS: BP 124/65; O2SAT 97
== END 2024-06-27 10:07 | disposition home or self-care (01) ==
LOC: ER 08:25
DX: R51.9 Headache, unspecified (principal); I10 Essential (primary) hypertension
CPT/HCPCS: 85025; 80048; 36415; 70450; J2765; J1200; J7030